=== PATIENT | female | born 1960 | race Caucasian/White ===

== ENCOUNTER → 2016-10-01 | Outpatient (CLI) | payer MEDICARE, OTHER ==
[~2016-10-01] MED LIST: BRIN20TA PO; CIPRO500 MG PO; CIPROFLOXACIN500 M4 PO; DAILY VITAMIN1 EAC2 PO; FLUTICASON0.05 MG/AC NAS; GABAPENTIN300 MG PO; HYDROCODONE BIT1 T11 PO; LISINOPRIL10 MG PO; MACROBID100 M1 PO; MONTELUKAST SOD10 MG PO; NAPROSYN500 MG PO; NATURE'S BLEND F1 MG PO; NEURONTIN600 MG PO; NORTRIPTYLINE H10 M1 PO; PERCOCET 325 MG1 TA5 PO; PRILOSEC20 M1 PO; PYRIDIUM200 M1 PO; PYRIDIUM200 MG PO; RANITIDINE150 MG PO; RITE AID MELATON5 MG PO; VITAMIN D1000 IU PO; ZOFRAN4 MG PO
== END | disposition home or self-care (01) ==
LOC: RAD 14:40
DX: M46.06 Spinal enthesopathy, lumbar region (principal); G95.89 Other specified diseases of spinal cord

== ENCOUNTER → 2016-10-24 | Outpatient (CLI) | payer MEDICARE, OTHER | END | disposition home or self-care (01) | LOC: LAB 09:29 | DX: M47.897 Other spondylosis, lumbosacral region (principal); M48.07 Spinal stenosis, lumbosacral region; R53.83 Other fatigue; Z87.81 Personal history of (healed) traumatic fracture ==

== ENCOUNTER 2017-04-06 18:05 | Emergency (ER) | payer OTHER ==
[~2017-04-06] VITALS: Wt 125.6 kg
[2017-04-06 19:34] LABS: BILIRUBIN 1+ (NEGATIVE); BLOOD 3+ (NEGATIVE); CLARITY TURBID (CLEAR); COLOR RED (YELLOW); GLUCOSE NEGATIVE (NEGATIVE); KETONE TRACE (NEGATIVE); NITRITE POSITIVE (NEGATIVE); PH 6.5 (5.0-9.0); SPECIFIC GRAVITY 1.025 (1.005-1.030)
[2017-04-06 19:43] LABS: LEUKO ESTERASE 1+ (NEGATIVE)
[2017-04-06 19:44] LABS: RBC TNTC rbc/hpf (0-2)
[2017-04-06 19:48] LABS: BASO # 0.1 10*3/uL (0.0-0.1); BASO % 0.5 % (0.0-1.0); EOS # 0.2 10*3/uL (0.0-0.4); EOS % 2.3 % (1.0-4.0); HEMATOCRIT 43.2 % (37.0-47.0); LYMPH # 2.7 10*3/uL (1.3-4.4); MEAN CELL VOLUME 88.5 fl (81.0-99.0); MEAN CORPUSCULAR HGB 28.7 pg (27.0-31.0); MEAN CORPUSCULAR HGB CONC 32.4 g/dl (33.0-37.0); MEAN PLATELET VOLUME 10.1 fl (9.6-12.3); MONO # 0.7 10*3/uL (0.1-1.0); MONO % 6.5 % (3.0-9.0); NEUT # 6.8 10*3/uL (2.3-7.9); NEUT % 64.3 % (47.0-73.0); PLATELET COUNT AUTOMATED 271 10*3/uL (130-400); RED BLOOD COUNT 4.88 10*6/uL (4.10-5.10); RED CELL DISTRI WIDTH 14.4 % (0-14.5); WHITE BLOOD COUNT 10.5 10*3/uL (4.8-10.8)
[2017-04-06 20:04] LABS: ALBUMIN 3.5 gm/dl (3.1-4.5); ALKALINE PHOSPHATASE 134 U/L (45-117); BUN 14 mg/dl (7-24); CHLORIDE 102 mmol/L (98-107); CREATININE 1.06 mg/dL (0.55-1.02); POTASSIUM 3.8 mmol/L (3.5-5.1); SGOT/AST 19 IU/L (3-35); SGPT/ALT 19 U/L (12-78); SODIUM 141 mmol/L (136-145); TOTAL PROTEIN 8.1 gm/dL (6.4-8.2)
[2017-04-06] MEDS ORDERED: CIPRO500 MG PO (22:41)
== END 2017-04-06 22:44 | disposition home or self-care (01) ==
LOC: ED 18:05
PROVIDERS: Emergency Medicine Emergency Medical Services; Hospitalist
DX: N39.0 Urinary tract infection, site not specified (principal); R31.9 Hematuria, unspecified; Z98.890 Other specified postprocedural states; Z87.442 Personal history of urinary calculi; Z79.899 Other long term (current) drug therapy; Z88.0 Allergy status to penicillin; Z88.2 Allergy status to sulfonamides; Z91.040 Latex allergy status; Z88.5 Allergy status to narcotic agent

== ENCOUNTER → 2017-08-19 | Outpatient (CLI) | payer OTHER, MEDICAID | END | disposition home or self-care (01) | LOC: CARD 10:00 | DX: R00.0 Tachycardia, unspecified (principal) ==

== ENCOUNTER 2017-11-06 14:36 | Inpatient (IN) | payer OTHER, MEDICAID ==
[~2017-11-06] VITALS: Ht 165.1 cm; Wt 124.8 kg
--- NOTE | ~2017-11-06 | EKG ---
[place], [place] ELECTROCARDIOGRAM REPORT NAME: MORIAH CORBETT UNIT #: [id number] ROOM: 403 DOCTOR: KIRA KESSLER MD BIRTHDATE: [birth year] DOS: 11/06/2017 EKG REPORT TIME: 15:41:54 RATE AND RHYTHM: Sinus tachycardia at 114 beats per minute, also there is a sinus pause noted. HI interval 142 milliseconds, QRS duration 114 milliseconds. Corrected QT interval 478 milliseconds, QRS axis -15. IMPRESSION: 1. Sinus tachycardia with atrial pause. 2. Left axis deviation. 3. Incomplete left bundle branch block. Clinical correlation needed. KIRA KESSLER MD CM:EKGRPT:ELECTROCARDIOGRAM REPORT [id number] KIRA KESSLER MD
--- NOTE | ~2017-11-06 | CON ---
[place], [place] REPORT OF CONSULTATION NAME: MORIAH CORBETT [facility] #: [id number] UNIT #: [id number] ROOM: 403 DOCTOR: MARKOS PRAJAPATI MD BIRTHDATE: [birth year] DOS: 11/09/2017 GASTROENDOSCOPIC CONSULTATION HISTORY OF PRESENT ILLNESS: This is a 57-year-old patient, who presented with multiple medical problems, among which has been her diarrhea. I have been asked for assessment of the diarrhea. The patient initially presented with abdominal cramp progressively worsening to the point where she had to be admitted. She has had history of previous UTIs. PAST MEDICAL HISTORY: Associated obesity, hypertension, gout, asthma, chronic back pain, and depression. PAST SURGICAL HISTORY: , laminectomies, gastric bypass, and renal lithiasis. FAMILY HISTORY: Diabetes. SOCIAL HISTORY: Nonsmoker, nonalcohol consumer. MEDICATIONS: List was reviewed. ALLERGIES: PENICILLIN, SULFA, OXYCODONE, AND LATEX. REVIEW OF SYSTEMS: HEENT: Denies double vision, blurred vision. RESPIRATORY: Denies shortness of breath. CARDIOVASCULAR: Denies acute chest pain. DIGESTIVE SYSTEM: Diarrhea, cramp, and abdominal pain. No blood in the stool, however. PHYSICAL EXAMINATION: VITAL SIGNS: Stable, obese patient. HEENT: Head normocephalic, nontraumatic. Mouth and buccal mucosa benign. NECK: Supple, no thyromegaly, no cervical lymphadenopathy. CHEST: Symmetric anatomy, equal expansion. No wheeze, no rhonchi. HEART: Normal sinus rhythm, no gallop, no murmur. ABDOMEN: Obese, large, soft. No hepato-organomegaly. Bowel sounds present. EXTREMITIES: No cyanosis, no pedal edema. NEUROLOGIC: Alert and oriented to time, place, and person. IMPRESSION: Diarrhea. , etiology is unknown. The patient has had stool cultures to organize ova and parasite. A Clostridium difficile study has been already done and is negative. PLAN AND DISCUSSION: I am going to have ova and parasite results tomorrow and if it comes back negative, then we are going to organize a colonoscopy for her on Thursday, so she is going to be staying on clear liquid tomorrow with colonic prep for Thursday colonoscopy. [place], [place] REPORT OF CONSULTATION NAME: MORIAH CORBETT UNIT #: [id number] ROOM: 403 DOCTOR: ALO ANDERSEN,MARKOS BIRTHDATE: [birth year] OTHER ADJUNCTIVE DIAGNOSES: As outlined in past medical and surgical history. Workup in progress. Thank you very much indeed. MARKOS PRAJAPATI MD CM:CONSTR:REPORT OF CONSULTATION 1522 11/10/17 0040 interface
--- NOTE | ~2017-11-06 | PR ---
[place], [place] PROGRESS NOTE [id number] UN[facility] #: [id number] ROOM: 403 DOCTOR: SILVER GARCIA MD BIRTHDATE: [birth year] DOS: SUBJECTIVE: The patient, who has been admitted to the hospital with acute enteritis with diarrhea with pain in the abdomen and also having massive obesity and she is still having diarrhea with some pain in the belly, but it is getting somewhat better. There is no nausea, no vomiting. She is having about 4-5 bowel movements daily, which is watery. I put her on Imodium A-D 2 tablets q.6 hours p.r.n. and her blood culture and sensitivity did not grow any bacteria. Her C. diff is negative. OBJECTIVE: VITAL SIGNS: Her blood pressure is 103/72, pulse 113, respirations 20, temperature 98. CHEST: Clear. HEART: Regular. ABDOMEN: Soft. SILVER GARCIA MD CM:PNTRANS [id number] SILVER GARCIA MD 11/09/17 0247 interface
--- NOTE | ~2017-11-06 | WRIGHTHP ---
[place], [place] PATIENT HISTORY AND PHYSICAL EXAM NAME: MORIAH CORBETT [facility] #: [id number] UNIT #: [id number] ROOM: 403 DOCTOR: SILVER GARCIA MD BIRTHDATE: [birth year] DOS: 11/06/2017 HISTORY OF PRESENT ILLNESS: The patient has been admitted to possibility with diarrhea, which she is having for the last 5 days, progressively getting worse. It is like water. There is no blood in it and the patient was last time admitted to the hospital in 04/2017 when she was having urinary tract infection with nephrolithiasis. PAST MEDICAL HISTORY: Asthma, gout, hypertension, chronic back pain, depression. PAST SURGICAL HISTORY: She had a laminectomy done at L4-L5. Gastric bypass surgery done in the past, stomach stapling in 1989, 2 times, tubal ligation. Removal of renal stone and the patient has history of massive obesity. FAMILY HISTORY: There is strong history of diabetes and heart disease in the family. SOCIAL HISTORY: The patient does not drink, does not smoke, does not use any illicit drugs. HOME MEDICATIONS: The patient is taking following medications: Vitamin D 2000 units daily, gabapentin 600 mg three times daily, lisinopril 10 mg 3 times daily, multivitamin 1 tablet daily, Zantac 150 mg twice daily. ALLERGIES: She is allergic to SULFA, PENICILLIN, OXYCODONE and LATEX. PHYSICAL EXAMINATION: GENERAL: The patient is conscious, alert and oriented. VITAL SIGNS: Her blood pressure 109/69, pulse 112, respiration rate 17, temperature 98.3. She is 5 feet 6 inches tall. She is weighing 275 pounds, body mass of 45.7. HEENT: Unremarkable. No glandular enlargement. Trachea central. NECK: Veins are not distended. HEART: Regular. No murmur, thrill. LUNGS: Clear. No crepitations or rhonchi. BREASTS: No mass palpable in the breast. ABDOMEN: Not distended. Liver and spleen not palpable. EXTREMITIES: No area of tenderness. No mass effect. No definite tenderness observed. LABORATORY DATA: Her CBC is essentially normal. Lactic acid 1.9, which is normal. Protime is 10.6, which is normal. Comprehensive metabolic profile showed glucose 97, BUN 11, creatinine 1.17, GFR is 48 indicative of renal failure. Potassium 3.3, chloride is 112, calcium 8.3, alkaline phosphatase of 143. Sed rate is 28. DIAGNOSES: Diarrhea with feeling of marked weakness and with a history of recurring stones, urinary tract infection, nephrolithiasis, chronic kidney [place], [place] PATIENT HISTORY AND PHYSICAL EXAM NAME[facility] [id number] UNIT #: [id number] ROOM: 403 DOCTOR: SILVER GARCIA MD BIRTHDATE: [birth year] disease, gastroesophageal reflux disease syndrome status post gastric bypass, hypertension, asthma, chronic back pain, depression and massive obesity. PLAN: The patient is being treated right now with omeprazole, Cipro and Flagyl and she is taking her home medication as she was taking before and the patient is showing some improvement. SILVER GARCIA MD CM:HISPHYS:PATIENT HISTORY AND PHYSICAL EXAMINATION [id number] SILVER GARCIA MD 11/19/17 0843 interface
--- NOTE | ~2017-11-06 | O ---
[place], [place] OPERATIVE NOTE NAME: MORIAH CORBETT UNIT #: [id number] ROOM: 403 DOCTOR: MARKOS PRAJAPATI MD BIRTHDATE: [birth year] DOS: 11/11/2017 INDICATIONS: A 57-year-old patient who has presented with chief complaint of abdominal pain, diarrhea, undergoing investigation. She has had stool cultures done. The stool cultures have been negative for Campylobacter, E. coli, Salmonella, Shigella vibrio, and Yersenia. C. diff as well. No giardia and no cryptosporidium has been noticed. She is undergoing; therefore, a colonoscopy for definitive evaluation. PROCEDURE: Today's procedure part of investigation is colonoscopy plus biopsy. PREMEDICATION: Propofol. SCOPE: Olympus forward-viewing colonoscope 10L video. REPORT: After putting the patient in the left lateral position and after application of lubricant to the scope, the scope was introduced. Thereafter, under direct visualization, advanced through the length of colon without difficulty. Evidence of diverticulosis was particularly in the left side of the colon appreciated. This is [id number] and extreme tortuosity and redundancy of the colon was experienced. Finally, cecum was explored. Appendiceal orifice identified, ileocecal valve was photographed. Scope was gradually withdrawn from ascending, transverse, descending colon through a very tortuous colon. Multiple biopsies obtained for ruling out collagenous colitis, microscopic colitis. The patient was extubated, tolerated the procedure well. IMPRESSION: Redundant and tortuous colon, diverticulosis of colon. PLAN AND DISCUSSION: We are going to await biopsy results. She can be fed 1800 ADA diet and clinical reassessment. This bearing in mind that this patient has history of diabetes mellitus and morbid obesity, particularly abdominal girth and she needs to remain on low fat diet and observe 15-1800 ADA calorie so that she can be on the safe side. Thank you very much indeed for your kind referral. [place], [place] OPERATIVE NOTE NAME: MORIAH CORBETT UNIT #: [id number] ROOM: 403 DOCTOR: MARKOS PRAJAPATI MD BIRTHDATE: [birth year] MARKOS PRAJAPATI MD CM:OPRECORD:OPERATIVE NOTE [id number] MARKOS PRAJAPATI MD 11/11/17 1650 interface
[2017-11-06 15:00] VITALS: BP 106/76
[2017-11-06] MEDS ORDERED: ATENOLOL25 MG PO (15:09)
[2017-11-06] MEDS ORDERED: VITAMIN C500 M8 PO (15:11)
[2017-11-06] MEDS ORDERED: NATURE'S BLEND F1 MG PO (15:11)
[2017-11-06] MEDS ORDERED: FISH OIL 1,0001 EAC4 PO (15:11)
[2017-11-06 16:03] LABS: BASO % 0.4 % (0.0-1.0); EOS # 0.2 10*3/uL (0.0-0.4); EOS % 1.9 % (1.0-4.0); HEMATOCRIT 42.9 % (37.0-47.0); HEMOGLOBIN 13.8 g/dl (12.0-16.0); LYMPH % 23.5 % (27.0-41.0); MEAN CELL VOLUME 90.1 fl (81.0-99.0); MEAN CORPUSCULAR HGB CONC 32.2 g/dl (33.0-37.0); MEAN PLATELET VOLUME 10.5 fl (9.6-12.3); MONO # 0.7 10*3/uL (0.1-1.0); MONO % 8.1 % (3.0-9.0); NEUT # 5.6 10*3/uL (2.3-7.9); NEUT % 65.9 % (47.0-73.0); PLATELET COUNT AUTOMATED 223 10*3/uL (130-400); RED BLOOD COUNT 4.76 10*6/uL (4.10-5.10); RED CELL DISTRI WIDTH 14.1 % (0-14.5); WHITE BLOOD COUNT 8.4 10*3/uL (4.8-10.8)
[2017-11-06 16:14] LABS: ACT PARTIAL THROMBO TIME 23.8 SECONDS (20.8-31.5)
[2017-11-06 16:18] LABS: ALBUMIN 3.2 gm/dl (3.1-4.5); ALKALINE PHOSPHATASE 143 U/L (45-117); BUN 11 mg/dl (7-24); CHLORIDE 112 mmol/L (98-107); CREATININE 1.17 mg/dL (0.55-1.02); LIPASE 78 U/L (73-393); POTASSIUM 3.3 mmol/L (3.5-5.1); SGOT/AST 29 IU/L (3-35); SGPT/ALT 21 U/L (12-78); SODIUM 144 mmol/L (136-145); TOTAL PROTEIN 7.3 gm/dL (6.4-8.2)
[2017-11-06 16:27] LABS: TROPONIN I < 0.015 ng/ml (<0.045)
[2017-11-06 16:57] VITALS: BP 136/76
[2017-11-06 17:36] VITALS: BP 99/69
[2017-11-06 20:00] VITALS: BP 100/60; BP 98/59
[2017-11-07] VITALS: BP 109/69
[2017-11-07] MEDS ORDERED: GABAPENTIN800 MG PO (01:16)
[2017-11-07] MEDS ORDERED: VITAMIN D-32000 UNI1 PO (01:17)
[2017-11-07] MEDS ORDERED: TRINTELLIX20 MG PO (01:18)
[2017-11-07] MEDS ORDERED: OMEPRAZOLE D/R20 MG PO (01:18)
[2017-11-07] MEDS ORDERED: FUROSEMIDE40 MG PO (01:20)
[2017-11-07] MEDS ORDERED: FERROUS GLUCON324 M2 PO (05:31)
[2017-11-07 07:26] LABS: BUN 9 mg/dl (7-24); CHLORIDE 113 mmol/L (98-107); CREATININE 0.97 mg/dL (0.55-1.02); POTASSIUM 3.7 mmol/L (3.5-5.1); SODIUM 144 mmol/L (136-145)
[2017-11-07 08:00] VITALS: BP 104/60
[2017-11-07 12:00] VITALS: BP 106/65
[2017-11-07 16:00] VITALS: BP 95/62
[2017-11-07 20:00] VITALS: BP 113/65
[2017-11-08] VITALS: BP 106/70
[2017-11-08 08:00] VITALS: BP 103/72
[2017-11-08 12:00] VITALS: BP 104/54
[2017-11-08 20:00] VITALS: BP 133/78
[2017-11-09 01:19] VITALS: BP 119/49
[2017-11-09 06:31] LABS: BASO % 0.3 % (0.0-1.0); EOS # 0.2 10*3/uL (0.0-0.4); EOS % 2.7 % (1.0-4.0); HEMOGLOBIN 11.5 g/dl (12.0-16.0); LYMPH # 1.8 10*3/uL (1.3-4.4); LYMPH % 28.1 % (27.0-41.0); MEAN CELL VOLUME 92.5 fl (81.0-99.0); MEAN CORPUSCULAR HGB 29.6 pg (27.0-31.0); MEAN CORPUSCULAR HGB CONC 31.9 g/dl (33.0-37.0); MEAN PLATELET VOLUME 11.1 fl (9.6-12.3); MONO # 0.5 10*3/uL (0.1-1.0); MONO % 7.5 % (3.0-9.0); NEUT # 3.9 10*3/uL (2.3-7.9); NEUT % 60.9 % (47.0-73.0); PLATELET COUNT AUTOMATED 180 10*3/uL (130-400); RED BLOOD COUNT 3.89 10*6/uL (4.10-5.10); RED CELL DISTRI WIDTH 14.6 % (0-14.5); WHITE BLOOD COUNT 6.4 10*3/uL (4.8-10.8)
[2017-11-09 08:00] VITALS: BP 100/70
[2017-11-09 12:00] VITALS: BP 118/86
[2017-11-09 12:29] LABS: ALBUMIN 2.9 gm/dl (3.1-4.5); ALKALINE PHOSPHATASE 110 U/L (45-117); BUN 5 mg/dl (7-24); CHLORIDE 119 mmol/L (98-107); PHOSPHOROUS 2.1 mg/dL (2.5-4.9); POTASSIUM 3.9 mmol/L (3.5-5.1); SGOT/AST 30 IU/L (3-35); SGPT/ALT 21 U/L (12-78); SODIUM 149 mmol/L (136-145); TOTAL PROTEIN 6.5 gm/dL (6.4-8.2)
[2017-11-09 16:00] VITALS: BP 96/60
[2017-11-09 20:00] VITALS: BP 100/62
[2017-11-10] VITALS: BP 105/56
[2017-11-10 06:00] LABS: BASO % 0.5 % (0.0-1.0); EOS # 0.2 10*3/uL (0.0-0.4); EOS % 2.7 % (1.0-4.0); HEMATOCRIT 34.9 % (37.0-47.0); LYMPH # 1.6 10*3/uL (1.3-4.4); LYMPH % 24.9 % (27.0-41.0); MEAN CELL VOLUME 91.8 fl (81.0-99.0); MEAN CORPUSCULAR HGB 28.9 pg (27.0-31.0); MEAN CORPUSCULAR HGB CONC 31.5 g/dl (33.0-37.0); MEAN PLATELET VOLUME 10.6 fl (9.6-12.3); MONO # 0.5 10*3/uL (0.1-1.0); MONO % 8.3 % (3.0-9.0); NEUT % 63.1 % (47.0-73.0); PLATELET COUNT AUTOMATED 162 10*3/uL (130-400); RED CELL DISTRI WIDTH 14.6 % (0-14.5); WHITE BLOOD COUNT 6.4 10*3/uL (4.8-10.8)
[2017-11-10 06:21] LABS: BUN 5 mg/dl (7-24); CHLORIDE 116 mmol/L (98-107); CREATININE 0.92 mg/dL (0.55-1.02); POTASSIUM 3.7 mmol/L (3.5-5.1); SODIUM 144 mmol/L (136-145)
[2017-11-10 08:00] VITALS: BP 106/78
[2017-11-10 12:30] VITALS: BP 110/70
[2017-11-10 16:00] VITALS: BP 111/61
[2017-11-10 20:00] VITALS: BP 107/54
[2017-11-11] VITALS (9 sets, daily range): BP systolic 94–136; BP diastolic 54–95
[2017-11-11 06:56] LABS: BASO % 0.4 % (0.0-1.0); EOS # 0.3 10*3/uL (0.0-0.4); EOS % 3.2 % (1.0-4.0); LYMPH # 1.7 10*3/uL (1.3-4.4); MEAN CELL VOLUME 91.7 fl (81.0-99.0); MEAN CORPUSCULAR HGB CONC 31.6 g/dl (33.0-37.0); MEAN PLATELET VOLUME 11.1 fl (9.6-12.3); MONO # 0.5 10*3/uL (0.1-1.0); MONO % 6.1 % (3.0-9.0); NEUT # 5.4 10*3/uL (2.3-7.9); NEUT % 67.8 % (47.0-73.0); PLATELET COUNT AUTOMATED 204 10*3/uL (130-400); RED BLOOD COUNT 4.48 10*6/uL (4.10-5.10); RED CELL DISTRI WIDTH 14.8 % (0-14.5); WHITE BLOOD COUNT 7.9 10*3/uL (4.8-10.8)
[2017-11-11 06:57] LABS: HEMATOCRIT 41.1 % (37.0-47.0)
[2017-11-11 07:13] LABS: BUN 4 mg/dl (7-24); CHLORIDE 114 mmol/L (98-107); POTASSIUM 3.5 mmol/L (3.5-5.1); SODIUM 145 mmol/L (136-145)
[2017-11-12] VITALS: BP 109/62
[2017-11-12 06:59] LABS: BUN 4 mg/dl (7-24); CHLORIDE 114 mmol/L (98-107); CREATININE 0.87 mg/dL (0.55-1.02); POTASSIUM 3.6 mmol/L (3.5-5.1); SODIUM 143 mmol/L (136-145)
[2017-11-12 07:02] LABS: BASO % 0.3 % (0.0-1.0); EOS # 0.2 10*3/uL (0.0-0.4); EOS % 3.1 % (1.0-4.0); HEMOGLOBIN 11.1 g/dl (12.0-16.0); LYMPH # 1.7 10*3/uL (1.3-4.4); LYMPH % 22.6 % (27.0-41.0); MEAN CELL VOLUME 91.3 fl (81.0-99.0); MEAN CORPUSCULAR HGB 29.2 pg (27.0-31.0); MONO # 0.6 10*3/uL (0.1-1.0); MONO % 7.3 % (3.0-9.0); NEUT % 66.3 % (47.0-73.0); PLATELET COUNT AUTOMATED 183 10*3/uL (130-400); RED CELL DISTRI WIDTH 14.6 % (0-14.5); WHITE BLOOD COUNT 7.5 10*3/uL (4.8-10.8)
[2017-11-12 07:06] LABS: HEMATOCRIT 34.7 % (37.0-47.0)
[2017-11-12 08:00] VITALS: BP 106/57
[2017-11-12] MEDS ORDERED: NORTRIPTYLINE25 MG PO (11:43)
== END 2017-11-12 12:09 | disposition home or self-care (01) | DRG 392 ==
LOC: ED 14:36 → 4E 16:46 → EDHOLD 16:46 → 4E 17:06
PROVIDERS: Emergency Medicine; Internal Medicine; Internal Medicine Nephrology
PROC: 0DBE8ZX Excision of Large Intestine, Via Natural or Artificial Opening Endoscopic, Diagnostic (ICD-10-PCS; principal; 2017-11-11)
DX: K52.9 Noninfective gastroenteritis and colitis, unspecified (principal); E44.0 Moderate protein-calorie malnutrition; E87.0 Hyperosmolality and hypernatremia; E87.8 Other disorders of electrolyte and fluid balance, not elsewhere classified; E83.39 Other disorders of phosphorus metabolism; E66.01 Morbid (severe) obesity due to excess calories; Z68.42 Body mass index [BMI] 45.0-49.9, adult; J45.909 Unspecified asthma, uncomplicated; M10.9 Gout, unspecified; F32.9 Major depressive disorder, single episode, unspecified; G89.29 Other chronic pain; M54.9 Dorsalgia, unspecified; K57.30 Diverticulosis of large intestine without perforation or abscess without bleeding; K63.89 Other specified diseases of intestine; K21.9 Gastro-esophageal reflux disease without esophagitis; R00.0 Tachycardia, unspecified; D72.810 Lymphocytopenia; D64.9 Anemia, unspecified; E87.6 Hypokalemia; R73.9 Hyperglycemia, unspecified; I12.9 Hypertensive chronic kidney disease with stage 1 through stage 4 chronic kidney disease, or unspecified chronic kidney disease; Z87.440 Personal history of urinary (tract) infections; Z98.891 History of uterine scar from previous surgery; Z98.51 Tubal ligation status; Z87.442 Personal history of urinary calculi; Z98.84 Bariatric surgery status; Z83.3 Family history of diabetes mellitus; Z82.49 Family history of ischemic heart disease and other diseases of the circulatory system; Z88.2 Allergy status to sulfonamides; Z88.0 Allergy status to penicillin; Z91.040 Latex allergy status; Z88.8 Allergy status to other drugs, medicaments and biological substances; Z79.899 Other long term (current) drug therapy

== ENCOUNTER 2018-03-31 17:40 | Emergency (ER) | payer OTHER, MEDICAID ==
[~2018-03-31] VITALS: Wt 130.2 kg
[~2018-03-31 17:40] MED LIST changes: +ATENOLOL25 MG PO; +FERROUS GLUCON324 M2 PO; +FISH OIL 1,0001 EAC4 PO; +FUROSEMIDE40 MG PO; +GABAPENTIN800 MG PO; +NORTRIPTYLINE25 MG PO; +OMEPRAZOLE D/R20 MG PO; +TRINTELLIX20 MG PO; +VITAMIN C500 M8 PO; +VITAMIN D-32000 UNI1 PO
[2018-03-31 18:18] LABS: BILIRUBIN NEGATIVE (NEGATIVE); BLOOD 2+ (NEGATIVE); CLARITY CLEAR (CLEAR); COLOR YELLOW (YELLOW); GLUCOSE NEGATIVE (NEGATIVE); KETONE NEGATIVE (NEGATIVE); LEUKO ESTERASE NEGATIVE (NEGATIVE); NITRITE NEGATIVE (NEGATIVE); PH 5.5 (5.0-9.0); UROBILINOGEN 0.2 E.U./dl (0.2-1.0)
[2018-03-31 18:24] LABS: BACTERIA 1+
[2018-03-31 18:25] LABS: RBC 51-100 rbc/hpf (0-2); WBC 0-2 wbc/hpf (0-5)
[2018-03-31 19:56] LABS: BASO % 0.4 % (0.0-1.0); EOS # 0.2 10*3/uL (0.0-0.4); EOS % 1.9 % (1.0-4.0); HEMATOCRIT 41.4 % (37.0-47.0); HEMOGLOBIN 13.4 g/dl (12.0-16.0); LYMPH # 1.8 10*3/uL (1.3-4.4); LYMPH % 15.9 % (27.0-41.0); MEAN CORPUSCULAR HGB 30.7 pg (27.0-31.0); MEAN CORPUSCULAR HGB CONC 32.4 g/dl (33.0-37.0); MEAN PLATELET VOLUME 10.7 fl (9.6-12.3); MONO # 0.8 10*3/uL (0.1-1.0); MONO % 7.1 % (3.0-9.0); NEUT # 8.4 10*3/uL (2.3-7.9); NEUT % 74.3 % (47.0-73.0); PLATELET COUNT AUTOMATED 226 10*3/uL (130-400); RED BLOOD COUNT 4.36 10*6/uL (4.10-5.10); RED CELL DISTRI WIDTH 13.6 % (0-14.5); WHITE BLOOD COUNT 11.2 10*3/uL (4.8-10.8)
[2018-03-31 20:11] LABS: ALBUMIN 3.1 gm/dl (3.1-4.5); CREATININE 1.31 mg/dL (0.55-1.02); POTASSIUM 4.2 mmol/L (3.5-5.1); TOTAL PROTEIN 6.9 gm/dL (6.4-8.2)
[2018-03-31] MEDS ORDERED: NORCO 5-325 TA1 EACH PO (20:36)
[2018-03-31] MEDS ORDERED: FLOMAX0.4 MG PO (20:36)
== END 2018-03-31 20:43 | disposition home or self-care (01) ==
LOC: ED 17:40
PROVIDERS: Internal Medicine; Physician Assistant
DX: N20.1 Calculus of ureter (principal); R11.2 Nausea with vomiting, unspecified; Z87.442 Personal history of urinary calculi; Z88.0 Allergy status to penicillin; Z88.2 Allergy status to sulfonamides; Z91.040 Latex allergy status; Z88.8 Allergy status to other drugs, medicaments and biological substances; Z88.6 Allergy status to analgesic agent; Z79.899 Other long term (current) drug therapy

== ENCOUNTER → 2018-05-26 | Outpatient (CLI) | payer OTHER, MEDICAID ==
[~2018-05-26] MED LIST changes: +FLOMAX0.4 MG PO; +NORCO 5-325 TA1 EACH PO
[2018-06-01 18:05] LABS: BUSHITE 1.55 ratio (0.00-3.00); CALCIUM OXALATE 8.77 ratio (0.00-6.00); CALCIUM, URINE 10.7 mg/dL (Not Estab.); CITRIC ACID (CITRATE) 61 mg/24 hr (320-1240); CREATININE, URINE 87.6 mg/dL (Not Estab.); MAGNESIUM, URINE 3.6 mg/dL (Not Estab.); MONOSODIUM URATE 4.33 ratio (0.00-4.00); OSMOLALITY, URINE 535 (300-900); SODIUM, URINE 143 (39-258); SODIUM, URINE 143 mmol/L (Not Estab.); STRUVITE 0.01 ratio (0.00-1.00); URIC ACID 0.95 ratio (0.00-1.20); pH 24 HR URINE 6.1 (.)
== END | disposition home or self-care (01) ==
LOC: LAB 09:56
PROVIDERS: Internal Medicine Nephrology
DX: N18.9 Chronic kidney disease, unspecified (principal); N20.0 Calculus of kidney

== ENCOUNTER → 2018-07-29 | Outpatient (CLI) | payer OTHER, MEDICAID ==
[~2018-07-29] MED LIST changes: +DOXYCYCLINE100 M3 PO; +FLONASE ALLERG9.9 ML NAS; +MEDROL DOSEPAK4 MG PO; +OXYBUTYNIN10 MG PO; +POTASSIUM CITR10 MEQ PO; +TENORMIN25 MG PO
== END | disposition home or self-care (01) ==
LOC: RAD 15:49
DX: M51.36 Other intervertebral disc degeneration, lumbar region (principal); M54.42 Lumbago with sciatica, left side; M79.605 Pain in left leg

== ENCOUNTER 2018-08-04 12:56 | Emergency (ER) | payer OTHER, MEDICAID ==
[~2018-08-04] VITALS: Ht 165.1 cm; Wt 132.4 kg
--- NOTE | ~2018-08-04 | EKG ---
[place], [place] ELECTROCARDIOGRAM REPORT [id number] UN[facility] #: [id number] ROOM: DOCTOR: EPIPHANY DRAFT REPORT BIRTHDATE: [birth year] [facility] Test Date: 2018-08-04 Test Time: 15:16:40 Pat Name: MORIAH CORBETT Department: Room: Gender: F Office Copy Selector: Magdalena Anne : 1960 Requested By: CHICA VARGAS Order Number: [id number] Reading MD: Osmel Pruitt MD Measurements Intervals Warner Rate: 67 P: 26 KS: 179 QRS: -1 QRSD: 104 T: 40 QT: 400 QTc: 423 Interpretive Statements Sinus rhythm No previous ECG available for comparison Electronically Signed On 08-05-2018 4:57:36 PDT by Osmel Pruitt MD CM:EKGRPT:ELECTROCARDIOGRAM REPORT [id number] CHICA VARGAS EPIPHANY DRAFT REPORT CHICA VARGAS
[~2018-08-04 12:56] MED LIST changes: -DOXYCYCLINE100 M3 PO; -FLONASE ALLERG9.9 ML NAS; -MEDROL DOSEPAK4 MG PO; -OXYBUTYNIN10 MG PO; -POTASSIUM CITR10 MEQ PO; -TENORMIN25 MG PO
[2018-08-04 15:10] LABS: BASO # 0.1 10*3/uL (0.0-0.1); BASO % 0.4 % (0.0-1.0); EOS # 0.1 10*3/uL (0.0-0.4); HEMATOCRIT 40.7 % (37.0-47.0); HEMOGLOBIN 13.1 g/dl (12.0-16.0); LYMPH # 1.6 10*3/uL (1.3-4.4); LYMPH % 12.4 % (27.0-41.0); MEAN CORPUSCULAR HGB 30.3 pg (27.0-31.0); MEAN CORPUSCULAR HGB CONC 32.2 g/dl (33.0-37.0); MEAN PLATELET VOLUME 9.8 fl (9.6-12.3); MONO # 0.8 10*3/uL (0.1-1.0); NEUT # 10.3 10*3/uL (2.3-7.9); NEUT % 79.5 % (47.0-73.0); PLATELET COUNT AUTOMATED 201 10*3/uL (130-400); RED BLOOD COUNT 4.33 10*6/uL (4.10-5.10); RED CELL DISTRI WIDTH 13.8 % (0-14.5); WHITE BLOOD COUNT 12.9 10*3/uL (4.8-10.8)
[2018-08-04 15:45] LABS: BUN 21 mg/dl (7-24); CHLORIDE 105 mmol/L (98-107); CREATININE 1.03 mg/dL (0.55-1.02); POTASSIUM 4.3 mmol/L (3.5-5.1); SODIUM 141 mmol/L (136-145)
[2018-08-04 15:56] LABS: BILIRUBIN NEGATIVE (NEGATIVE); BLOOD NEGATIVE (NEGATIVE); CLARITY CLEAR (CLEAR); COLOR YELLOW (YELLOW); GLUCOSE NEGATIVE (NEGATIVE); KETONE NEGATIVE (NEGATIVE); LEUKO ESTERASE NEGATIVE (NEGATIVE); NITRITE NEGATIVE (NEGATIVE); SPECIFIC GRAVITY 1.015 (1.005-1.030)
[2018-08-04 16:06] LABS: BACTERIA 1+; MUCOUS 1+; WBC 0-2 wbc/hpf (0-5)
[2018-08-09] MEDS ORDERED: NORCO 5-325 TA1 EACH PO (10:50)
[2018-08-09] MEDS ORDERED: OXYBUTYNIN10 MG PO (10:51)
[2018-08-09] MEDS ORDERED: FLONASE ALLERG9.9 ML NAS (10:52)
[2018-08-09] MEDS ORDERED: POTASSIUM CITR10 MEQ PO (10:52)
[2018-08-13] MEDS ORDERED: TENORMIN25 MG PO (13:00)
[2018-08-13] MEDS ORDERED: MEDROL DOSEPAK4 MG PO (13:01)
[2018-08-13] MEDS ORDERED: DOXYCYCLINE100 M3 PO (13:01)
== END 2018-08-04 17:40 | disposition home or self-care (01) ==
LOC: ED 12:56
PROVIDERS: Nurse Practitioner
DX: D72.829 Elevated white blood cell count, unspecified (principal); R11.0 Nausea; J44.9 Chronic obstructive pulmonary disease, unspecified; Z98.890 Other specified postprocedural states; Z98.84 Bariatric surgery status; Z79.899 Other long term (current) drug therapy; Z87.442 Personal history of urinary calculi; Z88.0 Allergy status to penicillin; Z88.2 Allergy status to sulfonamides; Z91.040 Latex allergy status; Z88.5 Allergy status to narcotic agent

== ENCOUNTER → 2018-08-16 | Outpatient (CLI) | payer OTHER, MEDICAID ==
[~2018-08-16] MED LIST changes: +DOXYCYCLINE100 M3 PO; +FLONASE ALLERG9.9 ML NAS; +MEDROL DOSEPAK4 MG PO; +OXYBUTYNIN10 MG PO; +POTASSIUM CITR10 MEQ PO; +TENORMIN25 MG PO
== END | disposition home or self-care (01) ==
LOC: MRI 09:41
DX: M47.817 Spondylosis without myelopathy or radiculopathy, lumbosacral region (principal)

== ENCOUNTER → 2018-10-05 | Outpatient (CLI) | payer OTHER, MEDICAID | END | disposition home or self-care (01) | LOC: MAMMO 09-30 00:31 | DX: Z12.31 Encounter for screening mammogram for malignant neoplasm of breast (principal) ==

== ENCOUNTER 2018-11-06 16:26 | Emergency (ER) | payer OTHER, MEDICAID ==
[~2018-11-06] VITALS: Ht 167.6 cm; Wt 127.0 kg
== END 2018-11-06 19:20 | disposition home or self-care (01) ==
LOC: ED 16:26
DX: S93.601A Unspecified sprain of right foot, initial encounter (principal); R04.2 Hemoptysis; R06.02 Shortness of breath; J44.9 Chronic obstructive pulmonary disease, unspecified; K21.9 Gastro-esophageal reflux disease without esophagitis; I10 Essential (primary) hypertension; E66.01 Morbid (severe) obesity due to excess calories; Z88.0 Allergy status to penicillin; Z88.2 Allergy status to sulfonamides; Z88.6 Allergy status to analgesic agent; Z79.899 Other long term (current) drug therapy; Z91.040 Latex allergy status; W01.0XXA Fall on same level from slipping, tripping and stumbling without subsequent striking against object, initial encounter; Y93.89 Activity, other specified; Y92.89 Other specified places as the place of occurrence of the external cause; Y99.8 Other external cause status

== ENCOUNTER → 2018-11-11 | Outpatient (CLI) | payer OTHER, MEDICAID | END | disposition home or self-care (01) | LOC: RAD 13:14 | DX: J44.1 Chronic obstructive pulmonary disease with (acute) exacerbation (principal) ==

== ENCOUNTER 2019-03-07 09:38 | Inpatient (IN) | payer OTHER, MEDICAID ==
[~2019-03-07] VITALS: Ht 165.1 cm; Wt 122.5 kg
[2019-03-07 09:45] VITALS: BP 118/64
[2019-03-07 09:55] LABS: BASO # 0.1 10*3/uL (0.0-0.1); BASO % 0.4 % (0.0-1.0); EOS # 0.2 10*3/uL (0.0-0.4); EOS % 1.4 % (1.0-4.0); HEMATOCRIT 40.5 % (37.0-47.0); HEMOGLOBIN 13.1 g/dl (12.0-16.0); LYMPH # 1.4 10*3/uL (1.3-4.4); LYMPH % 11.2 % (27.0-41.0); MEAN CELL VOLUME 93.1 fl (81.0-99.0); MEAN CORPUSCULAR HGB 30.1 pg (27.0-31.0); MEAN CORPUSCULAR HGB CONC 32.3 g/dl (33.0-37.0); MEAN PLATELET VOLUME 11.5 fl (9.6-12.3); MONO # 0.6 10*3/uL (0.1-1.0); MONO % 4.4 % (3.0-9.0); NEUT # 10.6 10*3/uL (2.3-7.9); NEUT % 82.2 % (47.0-73.0); PLATELET COUNT AUTOMATED 173 10*3/uL (130-400); RED BLOOD COUNT 4.35 10*6/uL (4.10-5.10); RED CELL DISTRI WIDTH 13.4 % (0-14.5); WHITE BLOOD COUNT 12.9 10*3/uL (4.8-10.8)
[2019-03-07 10:09] LABS: ACT PARTIAL THROMBO TIME 26.7 SECONDS (20.0-32.1)
[2019-03-07 10:12] LABS: ALBUMIN 3.3 gm/dl (3.1-4.5); ALKALINE PHOSPHATASE 91 U/L (45-117); BUN 13 mg/dl (7-24); CHLORIDE 107 mmol/L (98-107); CREATININE 1.05 mg/dL (0.55-1.02); POTASSIUM 4.4 mmol/L (3.5-5.1); SGOT/AST 17 IU/L (3-35); SGPT/ALT 16 U/L (12-78); SODIUM 140 mmol/L (136-145); TOTAL PROTEIN 6.7 gm/dL (6.4-8.2)
[2019-03-07 10:14] VITALS: BP 108/54
--- NOTE | 2019-03-07 10:22 | NUR ---
PT POSITIONED FOR COMFORT WITH SAFETY PRECAUTIONS INTACT,FAMILY @ BEDSIDE AND CALL LIGHT WITHIN REACH.PT STATING "FEELING BETTER".
[2019-03-07 10:28] LABS: TROPONIN I < 0.015 ng/ml (<0.045)
--- NOTE | 2019-03-07 11:21 | NUR ---
PT W/O MEDICATION LIST.
[2019-03-07 11:25] VITALS: BP 100/60
--- NOTE | 2019-03-07 11:30 | NUR ---
A 58, admitted to , under the services of KIRA Amado MD with a diagnosis of CHEST PAIN. Chief complaint is CHEST PAIN. Patient arrived via stretcher from ER. Monitor applied. Initial assessment completed. Vital signs taken and recorded. KIRA AMADO MD notified of admission to the unit. Orders received. See assessment for past medical history, medications and allergies. Patient and/or family oriented to unit. [facility] visitation policy reviewed. Clothing/patient valuable form completed. PETER PHILLIPS
--- NOTE | 2019-03-07 11:50 | NUR ---
DR. ANA SAHU NOTIFIED OF PATIENT ADMISSION AND NEED FOR ADMISSION ORDERS
[2019-03-07 12:00] VITALS: BP 129/55
--- NOTE | 2019-03-07 12:05 | NUR ---
pt does not know home medication list, called [facility], they will fax an updated list
[2019-03-07] MEDS ORDERED: CITRUS CALCIUM1 EAC1 PO (12:49)
--- NOTE | 2019-03-07 12:55 | NUR ---
HOME MEDICATIONS UPDATED VIA PHARMACY FAX LIST AND PATIENT RECALL
--- NOTE | 2019-03-07 14:25 | NUR ---
DR. SAHU NOTIFIED PT REQUESTING TYLENOL
--- NOTE | 2019-03-07 14:40 | NUR ---
COMPLAIN OF HEADACHE
--- NOTE | 2019-03-07 15:25 | NUR ---
DR. SMITH NOTIFIED OF NEW CONSULT
[2019-03-07 16:00] VITALS: BP 124/56
[2019-03-07 20:00] VITALS: BP 95/55
[2019-03-08] VITALS: BP 114/77
[2019-03-08 06:37] LABS: BASO % 0.5 % (0.0-1.0); EOS # 0.2 10*3/uL (0.0-0.4); EOS % 3.1 % (1.0-4.0); HEMATOCRIT 35.8 % (37.0-47.0); HEMOGLOBIN 11.5 g/dl (12.0-16.0); LYMPH # 1.8 10*3/uL (1.3-4.4); LYMPH % 27.6 % (27.0-41.0); MEAN CELL VOLUME 95.2 fl (81.0-99.0); MEAN CORPUSCULAR HGB 30.6 pg (27.0-31.0); MEAN CORPUSCULAR HGB CONC 32.1 g/dl (33.0-37.0); MEAN PLATELET VOLUME 11.5 fl (9.6-12.3); MONO # 0.4 10*3/uL (0.1-1.0); MONO % 6.8 % (3.0-9.0); NEUT % 61.7 % (47.0-73.0); PLATELET COUNT AUTOMATED 155 10*3/uL (130-400); RED BLOOD COUNT 3.76 10*6/uL (4.10-5.10); RED CELL DISTRI WIDTH 13.5 % (0-14.5); WHITE BLOOD COUNT 6.4 10*3/uL (4.8-10.8)
[2019-03-08 06:55] LABS: ALBUMIN 2.8 gm/dl (3.1-4.5); BUN 13 mg/dl (7-24); CHLORIDE 106 mmol/L (98-107); CREATININE 0.97 mg/dL (0.55-1.02); POTASSIUM 4.1 mmol/L (3.5-5.1); SGOT/AST 11 IU/L (3-35); SGPT/ALT 12 U/L (12-78); SODIUM 140 mmol/L (136-145)
[2019-03-08 07:03] LABS: ALKALINE PHOSPHATASE 79 U/L (45-117); CHOLESTEROL 133 mg/dL (<200); HDL CHOLESTEROL 43 mg/dl (40-60); LDL CHOLESTEROL 67 mg/dL (9-159); PHOSPHOROUS 3.4 mg/dL (2.5-4.9); TOTAL PROTEIN 5.8 gm/dL (6.4-8.2); TRIGLYCERIDES 114 mg/dl (<150); VLDL CHOLESTEROL 23 mg/dL (6-40)
[2019-03-08 07:44] LABS: VITAMIN D, 25-HYDROXY 35.8 ng/mL (30-100)
[2019-03-08 08:00] VITALS: BP 130/80
--- NOTE | 2019-03-08 08:51 | NUR ---
TYLENOL GIVEN FOR C/O NECK PAIN, RATES 8/10 ON PAIN SCALE. WILL MONITOR.
--- NOTE | 2019-03-08 10:00 | NUR ---
TYLENOL NOT EFFECTIVE PER PT.
--- NOTE | 2019-03-08 10:30 | NUR ---
Procedure Manager in to talk to patient. Patient states lives at home alone with her family checking in on her. There are 13 steps in the home. Physician: Dr. Jerzy Juarez [facility]acy: [facility] Home health services: none Patient's level of ADLs: MINIMAL ASSIST Patient has working utilities: yes DME: walker, cane, RLE brace, LLE air boot, hospital bed, electric chair Follow-up physician's appointment after d/c: he prefers to make her own follow up appt after discharge Does patient want to access PORTAL?: no Discharge plan discussed with patient. She lives at home with her boyfriend and is in the process of moving. She is independent in her ADLs and ambulates with a walker or a cane. Discussed home health care services and she denies any home needs at this time. When medically stable she will be discharged to home. Her boyfriend, Rakan, will provide transportation on discharge. WOLF NOBLES
[2019-03-08 12:00] VITALS: BP 101/53
--- NOTE | 2019-03-08 14:15 | NUR ---
[facility] Discharge instructions reviewed with patient/family. Patient receptive and verbalizes understanding. Follow-up care arranged. Written instructions given to patient/family. COURTNEY HITCHCOCK
== END 2019-03-08 14:15 | disposition home or self-care (01) | DRG 313 ==
LOC: ED 09:38 → 4E 10:58 → EDHOLD 10:58 → 4E 11:22
PROVIDERS: Emergency Medicine; Student in an Organized Health Care Education/Training Program; ADMIT Internal Medicine
DX: R07.89 Other chest pain (principal); J44.1 Chronic obstructive pulmonary disease with (acute) exacerbation; R65.10 Systemic inflammatory response syndrome (SIRS) of non-infectious origin without acute organ dysfunction; R04.2 Hemoptysis; D72.829 Elevated white blood cell count, unspecified; R00.0 Tachycardia, unspecified; R73.9 Hyperglycemia, unspecified; J30.9 Allergic rhinitis, unspecified; K21.9 Gastro-esophageal reflux disease without esophagitis; I10 Essential (primary) hypertension; F32.9 Major depressive disorder, single episode, unspecified; E66.01 Morbid (severe) obesity due to excess calories; K58.9 Irritable bowel syndrome, unspecified; R32 Unspecified urinary incontinence; M54.9 Dorsalgia, unspecified; G89.29 Other chronic pain; Z87.891 Personal history of nicotine dependence; Z88.0 Allergy status to penicillin; Z88.2 Allergy status to sulfonamides; Z88.8 Allergy status to other drugs, medicaments and biological substances; Z91.040 Latex allergy status; Z98.891 History of uterine scar from previous surgery; Z98.51 Tubal ligation status; Z98.84 Bariatric surgery status; Z83.3 Family history of diabetes mellitus; Z82.49 Family history of ischemic heart disease and other diseases of the circulatory system; Z81.1 Family history of alcohol abuse and dependence

== ENCOUNTER 2019-04-26 11:20 | Inpatient (IN) | payer OTHER, MEDICAID ==
[2019-04-26] VITALS: BP 99/41
[~2019-04-26] VITALS: Ht 165.1 cm; Wt 116.3 kg
[~2019-04-26 11:20] MED LIST changes: +CITRUS CALCIUM1 EAC1 PO
[2019-04-26 11:33] VITALS: BP 116/69
[2019-04-26 11:41] LABS: BASO % 0.2 % (0.0-1.0); EOS # 0.1 10*3/uL (0.0-0.4); EOS % 1.3 % (1.0-4.0); HEMATOCRIT 39.2 % (37.0-47.0); HEMOGLOBIN 12.7 g/dl (12.0-16.0); LYMPH # 1.7 10*3/uL (1.3-4.4); LYMPH % 15.7 % (27.0-41.0); MEAN CELL VOLUME 93.1 fl (81.0-99.0); MEAN CORPUSCULAR HGB 30.2 pg (27.0-31.0); MEAN CORPUSCULAR HGB CONC 32.4 g/dl (33.0-37.0); MEAN PLATELET VOLUME 11.1 fl (9.6-12.3); MONO # 0.6 10*3/uL (0.1-1.0); MONO % 5.2 % (3.0-9.0); NEUT # 8.6 10*3/uL (2.3-7.9); NEUT % 77.3 % (47.0-73.0); PLATELET COUNT AUTOMATED 197 10*3/uL (130-400); RED BLOOD COUNT 4.21 10*6/uL (4.10-5.10); RED CELL DISTRI WIDTH 13.2 % (0-14.5); WHITE BLOOD COUNT 11.1 10*3/uL (4.8-10.8)
[2019-04-26 11:59] LABS: ALBUMIN 3.3 gm/dl (3.1-4.5); ALKALINE PHOSPHATASE 102 U/L (45-117); BUN 12 mg/dl (7-24); CHLORIDE 108 mmol/L (98-107); CREATININE 1.02 mg/dL (0.55-1.02); POTASSIUM 3.8 mmol/L (3.5-5.1); SGOT/AST 10 IU/L (3-35); SGPT/ALT 13 U/L (12-78); SODIUM 141 mmol/L (136-145)
[2019-04-26 12:02] LABS: ACT PARTIAL THROMBO TIME 26.6 SECONDS (20.0-32.1); INTERNATIONAL NORM RATIO 0.9 (2.0-3.5)
[2019-04-26 12:05] LABS: TROPONIN I < 0.015 ng/ml (<0.045)
--- NOTE | 2019-04-26 12:06 | NUR ---
ALERT AND ORIENTED. SKIN COOL AND DRY. RESPIRAITONS EVEN AND UNLABORED. REPORTS FEELING SOB WITH THORACIC BACK PAINS STATES INTERMITTENT CP DESCRIBING REPRODUCABLE PAINS AND WORSE WITH DEEP INSPIRATION. REPORTS PRODUCTIVE COUGH THAT IS YELLOW IN COLOR WITH RED STREAKS. STATES THAT SXS STARTED THURSDAY BUT HAD HOLIDAY ACTIVITES TO ATTEND STATING THAT NOW FEELING WORSE. EDEMA NOTED TO THE LOWER EXTREMITES AND PT STATES THAT IS NORMAL. TRACE PITTING NOTED. STATES THAT SHE WAS INITIALLY COMING OUTPATIENT FOR XRAY OF HER NECK. DENYING ANY RECENT TRAUMA. NO DISTRESS NOTED. CALL MARTINEZ IN REACH. BED LOCKED AND LOW.CONTINUING TO MONITOR. NSR ON THE MONITOR.
[2019-04-26 12:57] VITALS: BP 113/68
--- NOTE | 2019-04-26 12:58 | NUR ---
PT IN ROOM WITH FRIEND AT BEDSIDE PT STATES SHE IS WARM ENOUGH PT GIVEN KLEENEX FOR OCCASIONAL PRODUCTIVE COUGH PT WITH NO OTHER REQUESTS NO SIGN OF RESP DISTRESS
--- NOTE | 2019-04-26 13:13 | NUR ---
A 58, admitted to 4E, under the services of KIRA Amado MD with a diagnosis of COPD EXACERBATION. Chief complaint is SHORTNESS OF BREATH. Patient arrived via wheel chair from ER. Monitor applied. Initial assessment completed. Vital signs taken and recorded. KIRA AMADO MD notified of admission to the unit. Orders received. See assessment for past medical history, medications and allergies. Patient and/or family oriented to unit. [facility] visitation policy reviewed. Clothing/patient valuable form completed. MORIAH MORALES
--- NOTE | 2019-04-26 15:07 | NUR ---
gait steady with use of cane to restroom. telephone report given to floor by this rn and pt transported to the floor with hall monitor.
[2019-04-26 15:15] VITALS: BP 141/88
[2019-04-26 16:00] VITALS: BP 99/41
--- NOTE | 2019-04-26 16:30 | NUR ---
CALL PLACED TO DR. KESSLER, TO RECEIVED FOR ADMIT TO TELEMETRY, SOLUMEDROL 60MG BID, DUONEB Q4H, ROCEPHEN 1GM DAILY, ZITHROMAX 500MG DAILY IV, LOVENOX 40MG DAILY AND REGULAR DIET.
--- NOTE | 2019-04-26 17:05 | NUR ---
PATIENT C/O OF H/A 11/10 MEDICATED WITH NORCO ORDERED PRN.
--- NOTE | 2019-04-26 18:05 | NUR ---
GOOD RELIEF FROM NORCO GIVEN X 1 HOUR AGO, REPORTS PAIN 0/0
[2019-04-26 20:00] VITALS: BP 114/58
[2019-04-27] VITALS: BP 110/51
--- NOTE | 2019-04-27 00:15 | NUR ---
PT SLEEPING IN BED, AWAKENS EASILY. RESP-EASY AND REGULAR. NO C/O AT THIS TIME. CALL LIGHT IN REACH. SEE SHIFT ASSESSMENT.
--- NOTE | 2019-04-27 04:00 | NUR ---
PT SLEEPING IN BED. RESP-EASY AND REGULAR. CALL LIGHT IN REACH.
[2019-04-27 08:00] VITALS: BP 102/70
--- NOTE | 2019-04-27 10:48 | NUR ---
Requested and medicated with norco per prn order for complaints of pain to rt ear and throat pain.
[2019-04-27 12:00] VITALS: BP 122/53
[2019-04-27 16:51] VITALS: BP 113/59
--- NOTE | 2019-04-27 19:11 | NUR ---
PATIENT RESTING IN BED WATCHING TV. DENIES NEEDS OR SHORTNESS OF BREATH AT THIS TIME. BED IN LOWEST POSITION, CALL LIGHT IN REACH
[2019-04-27 20:00] VITALS: BP 131/78
--- NOTE | 2019-04-27 20:38 | NUR ---
PATIENT C/O MIDSTERNAL NON RADIATING CHEST PAIN RATED 5/10 ON A 0/10 PAIN SCALE. VITALS WNL. PULSE OX 97% ON ROOM AIR. STAT EKG ORDERED
--- NOTE | 2019-04-27 20:42 | NUR ---
DR WALTER AWARE OF PATIENT C/O CHEST PAIN
--- NOTE | 2019-04-27 21:28 | NUR ---
PATIENT STATES CHEST PAIN HAS SUBSIDED
--- NOTE | 2019-04-27 21:32 | NUR ---
DR WALTER AWARE OF PATIENT'S HEART RATE AND DUE TENORMIN. STATES "I WILL LOOK AT HER CHART"
--- NOTE | 2019-04-27 22:13 | NUR ---
DR KESSLER AWARE OF PATIENT'S HEART RATE AND EKG. STATES TO HOLD TENORMIN AND CONSULT DR SMITH
--- NOTE | 2019-04-27 22:20 | NUR ---
DR KESSLER AWARE OF DR SMITH BEING AWARE UNTIL May. STATES TO CALL DR DUDLEY
--- NOTE | 2019-04-27 22:24 | NUR ---
DR KESSLER MADE AWARE OF NO CARDIOLOGY COVERAGE. STATES TO WAIT UNTIL TOMORROW AND HE WILL TAKE CARE OF IT
--- NOTE | 2019-04-27 22:37 | NUR ---
MEDICATED WITH PRN NORCO FOR C/O PAIN. WILL MONITOR
[2019-04-28] VITALS: BP 99/61
[2019-04-28 00:30] VITALS: BP 100/68
--- NOTE | 2019-04-28 01:51 | NUR ---
24 HR chart check completed.
[2019-04-28 08:00] VITALS: BP 110/70
--- NOTE | 2019-04-28 11:44 | NUR ---
Notified Dr. Juarez of pt tachycardia when up with exertion hr 120-130's. No new orders at this time.
[2019-04-28 12:00] VITALS: BP 117/50
--- NOTE | 2019-04-28 13:02 | NUR ---
Driver License Reviewing Officer in to talk to patient. Patient states lives at HOME with ALONE. There are NO steps in the home. Physician: VICTORIA [facility]acy: [facility] Home health services: NONE Patient's level of ADLs: INDEPENDENT Patient has working utilities: YES DME: [facility] Follow-up physician's appointment after d/c: WILL BE MADE BY HOSPITALIST NURSE DIRECTOR ON DISCHARGE Does patient want to access PORTAL?: NO Discharge plan PT LIVES AT HOME ALONE AND IS INDEPENDENT IN HER CARE. STATES DAUGHTER HELPS HER IF NEEDED. DENIES SHE WILL HAVE NEEDS ON DISCHARGE. PLANS TO RETURN HOME WHEN MEDICALLY STABLE. WILL CONTINUE TO FOLLOW. STATES SHE WILL HAVE A RIDE HOME.. MEHUL MAN
[2019-04-28 16:00] VITALS: BP 122/53
[2019-04-28] MEDS ORDERED: PRILOSEC20 M1 PO (16:27)
[2019-04-28 20:00] VITALS: BP 111/70
[2019-04-29] VITALS: BP 116/53
--- NOTE | 2019-04-29 03:41 | NUR ---
24 HR chart check completed.
--- NOTE | 2019-04-29 04:16 | NUR ---
PATIENT RESTING IN BED WITH NO S/S OF DISTRESS. BED IN LOWEST POSITION, CALL LIGHT IN REACH
[2019-04-29 07:41] LABS: BASO % 0.2 % (0.0-1.0); HEMATOCRIT 39.8 % (37.0-47.0); HEMOGLOBIN 12.6 g/dl (12.0-16.0); LYMPH # 1.3 10*3/uL (1.3-4.4); LYMPH % 7.2 % (27.0-41.0); MEAN CELL VOLUME 94.1 fl (81.0-99.0); MEAN CORPUSCULAR HGB 29.8 pg (27.0-31.0); MEAN CORPUSCULAR HGB CONC 31.7 g/dl (33.0-37.0); MEAN PLATELET VOLUME 11.3 fl (9.6-12.3); MONO # 0.5 10*3/uL (0.1-1.0); MONO % 2.5 % (3.0-9.0); NEUT # 15.9 10*3/uL (2.3-7.9); NEUT % 88.4 % (47.0-73.0); PLATELET COUNT AUTOMATED 251 10*3/uL (130-400); RED BLOOD COUNT 4.23 10*6/uL (4.10-5.10); RED CELL DISTRI WIDTH 13.2 % (0-14.5); WHITE BLOOD COUNT 17.9 10*3/uL (4.8-10.8)
[2019-04-29 07:50] LABS: BUN 30 mg/dl (7-24); CHLORIDE 107 mmol/L (98-107); CREATININE 1.08 mg/dL (0.55-1.02); POTASSIUM 5.1 mmol/L (3.5-5.1); SODIUM 140 mmol/L (136-145)
[2019-04-29 08:00] VITALS: BP 126/68
--- NOTE | 2019-04-29 11:29 | NUR ---
REGIONAL COORDINATOR was notified by Snap Attacher Mira that the patient wanted DPOA-HC papers. REGIONAL COORDINATOR provided the patient with the documents. REGIONAL COORDINATOR explained DPOA-HC. REGIONAL COORDINATOR explained to the patient if she has any further questions to have staff contact this REGIONAL COORDINATOR. -PIEDAD Dean
--- NOTE | 2019-04-29 11:39 | NUR ---
PT PLEASANT AND COOPERATIVE. LUNGS DIM T/O MONGE. EDEMA VS OBESITY TO BLE. PT DENIES ANY PAIN AT THIS TIME. CALL LIGHT IS WITHIN REACH. NO NEEDS VOICED.
[2019-04-29 12:00] VITALS: BP 119/62
--- NOTE | 2019-04-29 12:16 | NUR ---
CONTINUES TO DENY NEEDS AT HOME. CAN BE DISCHARGED HOME WHEN MEDICALLY STABLE.
[2019-04-29 16:00] VITALS: BP 115/51
[2019-04-29 20:00] VITALS: BP 117/63
--- NOTE | 2019-04-29 20:53 | NUR ---
CALLED PHARMACY AND TOLD THEM I NEEDED THE PATIENTS TRINTELLIX PRESCRIPTION THAT IT IS NOT IN THE [facility], HE WILL SEND ONE TO ME
--- NOTE | 2019-04-29 23:10 | NUR ---
REPORT RECEIVED FROM YULIET GRIFFIN. PT SLEEPING AT THIS TIME, NO S/S OF DISTRESS NOTED. CALL LIGHT IN REACH.
[2019-04-30] VITALS: BP 105/58
--- NOTE | 2019-04-30 01:00 | NUR ---
PT SLEEPING, CALL LIGHT IN REACH
[2019-04-30 08:00] VITALS: BP 140/68
--- NOTE | 2019-04-30 08:30 | NUR ---
PT MEDICATED WITH NORCO AT THIS TIME PER ORDER FOR COMPLAINTS OF BACK PAIN 01/11. WILL MONITOR FOR EFFECTIVENESS.
--- NOTE | 2019-04-30 09:45 | NUR ---
PER PATIENT, PAIN MEDICATION HAS BEEN EFFECTIVE. NO FURTHER COMPLAINTS AT THIS TIME.
[2019-04-30 12:00] VITALS: BP 126/61
--- NOTE | 2019-04-30 15:21 | NUR ---
PT REFUSED SATX STATES SHE WANTS TO VISIT WITH COMPANY
[2019-04-30 16:00] VITALS: BP 110/55
[2019-04-30 20:00] VITALS: BP 119/53
--- NOTE | 2019-04-30 20:08 | NUR ---
PATIENT RESTING IN BED WITH NO S/S OF DISTRESS WITH NO NEEDS MADE. BED IN LOWEST POSITION, CALL LIGHT IN REACH
[2019-05-01] VITALS: BP 115/56; BP 127/66
--- NOTE | 2019-05-01 04:13 | NUR ---
PATIENT RESTING IN BED WITH NO S/S OF DISTRESS. BED IN LOWEST POSITION, CALL LIGHT IN REACH
--- NOTE | 2019-05-01 04:51 | NUR ---
24 HR chart check completed.
--- NOTE | 2019-05-01 07:10 | NUR ---
REPORT RECEIVED FROM KENYETTA GRIFFIN. PT AWAKE AT THIS TIME. PT VOICES NO COMPLAINTS, CALL LIGHT IN REACH.
[2019-05-01 08:00] VITALS: BP 133/64
[2019-05-01 12:00] VITALS: BP 135/59
--- NOTE | 2019-05-01 13:34 | NUR ---
NORCO GIVEN PER ORDER FOR COMPLAINT OF 9/10 HEADACHE PAIN. WILL MONITOR EFFECTIVENESS
--- NOTE | 2019-05-01 15:00 | NUR ---
NORCO EFFECTIVE FOR HEADACHE PER PT.
[2019-05-01 16:00] VITALS: BP 131/69
[2019-05-01 20:00] VITALS: BP 122/55
--- NOTE | 2019-05-01 20:15 | NUR ---
PATIENT ASSESSMENT COMPLETED AT THIS TIME WITHOUT INCIDENT. PATIENT DENIES ANY CHEST PAIN OR PRESSURE AT THIS TIME BUT DOES STATE SHE HAD MILD SHORTNESS OF BREATH WITH EXERTION OR AMBULATION, PATIENT STATED THAT SHE IS USING PURSED LIP BREATHING TECHNIQUES WHEN SHORT OF BREATH. PATIENT REQUESTING PAIN MEDICATION AT BEDTIME FOR GENERALIZED PAIN 5/10 AT THIS TIME. CALL LIGHT WITHIN REACH, WILL CONTINUE TO MONITOR.
--- NOTE | 2019-05-01 22:37 | NUR ---
24 HOUR CHART CHECK COMPLETED
--- NOTE | 2019-05-01 23:00 | NUR ---
PATIENT STATED THAT PAIN MEDICATION WAS EFFECTIVE AT THIS TIME RATED HER PAIN A 3/10.
--- NOTE | 2019-05-02 01:23 | NUR ---
PT COMPLAINING OF NAUSEA AT THIS TIME. SPOKE WITH DR KESSLER, TELEPHONE ORDER TAKEN FOR 4MG OF ZOFRAN. DR KESSLER STATES THAT IF ITS INEFFECTIVE TO GIVE 25 MG PHENERGAN.
--- NOTE | 2019-05-02 01:36 | NUR ---
ZOFRAN ADMINISTERED FOR PT C/O NAUSEA.
--- NOTE | 2019-05-02 05:49 | NUR ---
PHENERGAN IV GIVEN AT THIS TIME FOR PATIENT CONINTUED COMPLAINT OF UPSET STOMACH AND NAUSEA.
[2019-05-02 06:19] LABS: HEMATOCRIT 40.3 % (37.0-47.0); HEMOGLOBIN 12.9 g/dl (12.0-16.0); MEAN CELL VOLUME 93.3 fl (81.0-99.0); MEAN CORPUSCULAR HGB 29.9 pg (27.0-31.0); PLATELET COUNT AUTOMATED 229 10*3/uL (130-400); RED BLOOD COUNT 4.32 10*6/uL (4.10-5.10); RED CELL DISTRI WIDTH 12.9 % (0-14.5); WHITE BLOOD COUNT 17.8 10*3/uL (4.8-10.8)
[2019-05-02 06:28] LABS: CREATININE 1.13 mg/dL (0.55-1.02)
[2019-05-02 06:54] LABS: TOTAL CELLS COUNTED 100 #CELLS
[2019-05-02 06:55] LABS: PLATELET SUFFICIENCY NORMAL (NORMAL)
--- NOTE | 2019-05-02 11:55 | NUR ---
PT. UNAVAILABLE OFF FLOOR FOR PROCEDURE.
[2019-05-02 12:00] VITALS: BP 129/67
--- NOTE | 2019-05-02 14:13 | NUR ---
INFORMED SIGNED CONSENT OBTAINED FOR LEXISCAN STRESS TEST WITH DR DICKERSON. RESTING EKG SINUS BRADYCARDIA HR 48 BP 92/58. T WAVE INVERSION AVR AND AVL. PT PULSE OX 95% LUNGS CLEARLY DIMINISHED. PT COMPLETED ONE MINUTE OF A LEXISCAN PROTOCOL WITH PT RECEVING LEXISCAN 0.4MG IV OVER 10 SECONDS. NO ARRHYTMIAS NOTED NO ST CHANGES SEEN. PT HAD A WARM FEELING WITH INJECTION. LAST RECOVERY HR OF 81 BP 145/80. PT IN STABLE CONDITION, AWAITING NUCLEAR IMAGES.
--- NOTE | 2019-05-02 15:36 | NUR ---
PT. REFUSED AEROSOL TREATMENT AT THIS TIME
[2019-05-02 16:00] VITALS: BP 127/57
[2019-05-02 20:00] VITALS: BP 124/47
--- NOTE | 2019-05-02 20:03 | NUR ---
24 HOUR CHART CHECK COMPLETE
--- NOTE | 2019-05-02 20:20 | NUR ---
PATIENT ASSESSMENT COMPLETED AT THIS TIME WITHOUT INCIDENT. PATIENT DENIES ANY CHEST PAIN/PRESSURE OR SHORTNESS OF BREATH AT THIS TIME. PATIENT DOES CONTINUE TO COMPLAIN OF NAUSEA FROM EARLIER STRESS TEST, ZOFRAN ADMINISTERED ON PRIOR SHIFT, WILL CONTINUE TO MONITOR. CALL LIGHT WITHIN REACH WILL CONTINUE TO MONITOR.
[2019-05-03] VITALS: BP 115/48
[2019-05-03 00:20] VITALS: BP 115/48
--- NOTE | 2019-05-03 00:40 | NUR ---
PATIENT SPO2 88% ON ROOM AIR, PATIENT PLACED ON NC 2LPM, PATIENT ASYMPTOMATIC.
--- NOTE | 2019-05-03 05:44 | NUR ---
PATIENT REFUSED NEURONTIN AT THIS TIME DUE TO CONINTUED NAUSEA. PATIENT MEDICATED WITH ZOFRAN AT THIS TIME.
[2019-05-03 08:00] VITALS: BP 98/68
--- NOTE | 2019-05-03 11:52 | NUR ---
case management visits with patient, she states she will return ohme and denies any home needs
[2019-05-03 12:00] VITALS: BP 111/50
--- NOTE | 2019-05-03 13:42 | NUR ---
PATIENT TESTED FOR HOME OXYGEN USE. AT REST: HEART RATE:53 RESPIRATORY RATE:18 BLOOD PRESSURE:98/68 SPO2:95% DURING AMBULATION: HEART RATE:64 RESPIRATORY RATE:20 SPO2:92-95% NO NEED FOR HOME OXYGEN
[2019-05-03 16:00] VITALS: BP 104/44
--- NOTE | 2019-05-03 17:00 | NUR ---
PT RELAXED WITH NO S/S OF DISTRESS NOTED. PT REFUSING PO MEDS AT THIS TIME DUE TO NAUSEA. WILL REASSESS LATER. CALL LIGHT IN REACH AT ALL TIMES.
--- NOTE | 2019-05-03 19:45 | NUR ---
24 HOUR CHART CHECK COMPLETED
[2019-05-03 20:00] VITALS: BP 136/62
--- NOTE | 2019-05-03 22:34 | NUR ---
ONE TIME DOSE OF PHENERGAN IV GIVEN AT THIS TIME FOR NAUSEA. PATIENT STATED THAT THE ZOFRAN WAS NOT HELPING WITH HER NAUSEA.
[2019-05-04] VITALS: BP 140/63
[2019-05-04 06:48] LABS: HEMATOCRIT 39.5 % (37.0-47.0); HEMOGLOBIN 12.8 g/dl (12.0-16.0); MEAN CELL VOLUME 93.4 fl (81.0-99.0); MEAN CORPUSCULAR HGB 30.3 pg (27.0-31.0); MEAN CORPUSCULAR HGB CONC 32.4 g/dl (33.0-37.0); MEAN PLATELET VOLUME 11.2 fl (9.6-12.3); PLATELET COUNT AUTOMATED 182 10*3/uL (130-400); RED BLOOD COUNT 4.23 10*6/uL (4.10-5.10); RED CELL DISTRI WIDTH 12.8 % (0-14.5); WHITE BLOOD COUNT 13.9 10*3/uL (4.8-10.8)
[2019-05-04 07:23] LABS: BUN 41 mg/dl (7-24); CHLORIDE 104 mmol/L (98-107); CREATININE 1.11 mg/dL (0.55-1.02); POTASSIUM 4.6 mmol/L (3.5-5.1); SODIUM 139 mmol/L (136-145)
[2019-05-04 08:01] LABS: ATYPICAL LYMPHS 1 % (0-0); PLATELET SUFFICIENCY NORMAL (NORMAL); TOTAL CELLS COUNTED 100 #CELLS
[2019-05-04 08:47] VITALS: BP 112/68
[2019-05-04 12:00] VITALS: BP 102/50
[2019-05-04 16:00] VITALS: BP 116/72
--- NOTE | 2019-05-04 16:29 | NUR ---
SPOKE WITH RESPIRATORY ABOUT PT NEEDED HOME O2. PER RESPIRATORY PT NEEDS TO HAVE A SLEEP STUDY DONE TO BE ABLE TO QUALIFY PT FOR HOME 02. DR. ALFORD WAS NOTIFIED AND DISCHARGE PLANS WERE HELD FOR ONE MORE NIGHT.
--- NOTE | 2019-05-04 19:25 | NUR ---
NEW IV WAS PLACED IN LAC.
--- NOTE | 2019-05-04 19:53 | NUR ---
ZOFRAN EFFECTIVE PER PT.
[2019-05-04 20:00] VITALS: BP 120/58
--- NOTE | 2019-05-04 22:30 | NUR ---
pt placed on nocturnal pulse ox. taped. room air
[2019-05-05] VITALS: BP 102/41
--- NOTE | 2019-05-05 01:28 | NUR ---
24 HR chart check completed.
--- NOTE | 2019-05-05 03:00 | NUR ---
SLEEPING NO ACUTE DISTRESS NOTED.
--- NOTE | 2019-05-05 05:44 | NUR ---
PT. C/O NAUSEA AND WAS UNABLE TO KEEP CRACKERS DOWN PER PT. ZOFRAN GIVEN PER ORDER FOR NAUSEA. NO PO MEDICATIONS GIVEN AT THIS TIME PT. WAITING FOR NAUSEA TO SUBSIDE.
--- NOTE | 2019-05-05 06:59 | NUR ---
PT. STATED ZOFRAN NOT COMPLETELY EFFECTIVE AND REFUSED NEURTONIN AT THIS TIME BUT DID TAKE PRILOSEC PER ORDER.
[2019-05-05 07:31] LABS: BUN 38 mg/dl (7-24); CHLORIDE 105 mmol/L (98-107); POTASSIUM 4.8 mmol/L (3.5-5.1); SODIUM 140 mmol/L (136-145)
[2019-05-05 07:32] LABS: CREATININE 1.03 mg/dL (0.55-1.02)
[2019-05-05 08:00] VITALS: BP 124/56
--- NOTE | 2019-05-05 08:00 | NUR ---
Patient resting quietly with no c/o discomfort. Respirations easy and regular. Vital signs stable. No overt distress. PATRICIO GIL
--- NOTE | 2019-05-05 10:30 | NUR ---
Robotic Machine Tender Production in to see patient. Discussed home health care services and she is agreeable. When provided with a list of agencies she chose [facility]. She states her daughter is her go to person and she has been helping with [facility]. She states her insurance is changing to [employer] and she is going to work with her insurance to see about helping with her front steps. There are 10 steps to get up to her house. Asked patient if she reached out to anyone since her last admission regarding her steps. She stated no she had not reached out to anyone but has since moved from [place] to [place] off of [facility]. She believes she has everything else she could possibly need at home. When medically stable she will be discharged to home with [facility] services. Her daughter will provide transportation on discharge.
--- NOTE | 2019-05-05 10:46 | NUR ---
PT AMBULATING IN HALLWAY AT THIS TIME. NO DISTRESS.
[2019-05-05 12:00] VITALS: BP 123/52
[2019-05-05] MEDS ORDERED: PREDNISONE10 MG PO (13:06)
[2019-05-05] MEDS ORDERED: PHENERGAN25 M3 PO (13:42)
--- NOTE | 2019-05-05 14:01 | NUR ---
Faxed new home health referral to [facility]
--- NOTE | 2019-05-05 14:42 | NUR ---
Discharge instructions reviewed with patient/family. Patient receptive and verbalizes understanding. Follow-up care arranged. Written instructions given to patient/family. PATRICIO GIL.
== END 2019-05-05 14:42 | disposition home or self-care (01) | DRG 191 ==
LOC: ED 11:20 → 4E 13:41 → EDHOLD 13:41 → 4E 13:51
PROVIDERS: Emergency Medicine; Internal Medicine; Internal Medicine Nephrology; ADMIT Internal Medicine
PROC: 4A02XM4 Measurement of Cardiac Total Activity, External Approach (ICD-10-PCS; principal; 2019-05-02)
PROC: 3E073KZ Introduction of Other Diagnostic Substance into Coronary Artery, Percutaneous Approach (ICD-10-PCS; principal; 2019-05-02)
DX: J44.1 Chronic obstructive pulmonary disease with (acute) exacerbation (principal); I47.1 Supraventricular tachycardia; Z68.41 Body mass index [BMI] 40.0-44.9, adult; K21.9 Gastro-esophageal reflux disease without esophagitis; I10 Essential (primary) hypertension; N26.1 Atrophy of kidney (terminal); K58.9 Irritable bowel syndrome, unspecified; R32 Unspecified urinary incontinence; M54.9 Dorsalgia, unspecified; G89.29 Other chronic pain; F32.9 Major depressive disorder, single episode, unspecified; M54.2 Cervicalgia; R07.89 Other chest pain; J22 Unspecified acute lower respiratory infection; E66.01 Morbid (severe) obesity due to excess calories; Z98.84 Bariatric surgery status; Z87.891 Personal history of nicotine dependence; Z87.442 Personal history of urinary calculi; Z88.5 Allergy status to narcotic agent; Z88.0 Allergy status to penicillin; Z88.2 Allergy status to sulfonamides; Z88.8 Allergy status to other drugs, medicaments and biological substances; Z91.040 Latex allergy status; Z79.899 Other long term (current) drug therapy; Z98.51 Tubal ligation status; Z81.1 Family history of alcohol abuse and dependence; Z83.3 Family history of diabetes mellitus; Z82.49 Family history of ischemic heart disease and other diseases of the circulatory system; Z83.6 Family history of other diseases of the respiratory system

== ENCOUNTER 2019-05-06 08:49 | Inpatient (IN) | payer OTHER, MEDICAID ==
[~2019-05-06] VITALS: Ht 165.1 cm; Wt 113.6 kg
[~2019-05-06 08:49] MED LIST changes: +PHENERGAN25 M3 PO; +PREDNISONE10 MG PO
[2019-05-06 08:50] VITALS: BP 113/48
[2019-05-06 09:16] LABS: HEMATOCRIT 43.1 % (37.0-47.0); HEMOGLOBIN 14.5 g/dl (12.0-16.0); MEAN CELL VOLUME 90.7 fl (81.0-99.0); MEAN CORPUSCULAR HGB 30.5 pg (27.0-31.0); MEAN CORPUSCULAR HGB CONC 33.6 g/dl (33.0-37.0); MEAN PLATELET VOLUME 11.2 fl (9.6-12.3); PLATELET COUNT AUTOMATED 181 10*3/uL (130-400); RED BLOOD COUNT 4.75 10*6/uL (4.10-5.10); RED CELL DISTRI WIDTH 12.9 % (0-14.5); WHITE BLOOD COUNT 21.9 10*3/uL (4.8-10.8)
[2019-05-06 09:25] LABS: ACT PARTIAL THROMBO TIME 20.3 SECONDS (20.0-32.1)
[2019-05-06 09:33] LABS: ALBUMIN 3.2 gm/dl (3.1-4.5); ALKALINE PHOSPHATASE 68 U/L (45-117); BUN 37 mg/dl (7-24); CHLORIDE 103 mmol/L (98-107); CREATININE 1.17 mg/dL (0.55-1.02); LIPASE 331 U/L (73-393); POTASSIUM 4.2 mmol/L (3.5-5.1); SGOT/AST 16 IU/L (3-35); SGPT/ALT 19 U/L (12-78); SODIUM 141 mmol/L (136-145); TOTAL PROTEIN 6.4 gm/dL (6.4-8.2)
[2019-05-06 09:34] LABS: TROPONIN I < 0.015 ng/ml (<0.045)
[2019-05-06 09:41] LABS: TOTAL CELLS COUNTED 100 #CELLS
[2019-05-06 09:42] LABS: PLATELET SUFFICIENCY NORMAL (NORMAL)
--- NOTE | 2019-05-06 10:15 | NUR ---
PT STATES "I WAS SUPPOSSED TO HAVE OXYGEN WHEN I WAS DISCHARGED, CAN I HAVE IT ON NOW?". 2L NC O2 STARTED.
[2019-05-06 10:27] VITALS: BP 114/66
--- NOTE | 2019-05-06 11:23 | NUR ---
MULTIPLE MED ORDERS, AEROSOL ORDER AND CT ORDERS WERE ORDERED AT THE SAME TIME ADMISSION AND WILL DELAY PT TRANSPORT AND ADMISSION TO THE ADMISSION FLOOR.
[2019-05-06 12:03] VITALS: BP 121/48
--- NOTE | 2019-05-06 12:05 | NUR ---
PT TAKEN TO CT NOW.
[2019-05-06 12:40] VITALS: BP 132/50
--- NOTE | 2019-05-06 13:56 | NUR ---
Java Developer With Security Clearance in to talk to patient. Patient states lives at home alone with her family checking in on her. There are 0 steps in the home. Physician: Dr. Jerzy Juarez [facility] Home health services: none Patient's level of ADLs: minimal assistance Patient has working utilities: yes DME: walker, cane Follow-up physician's appointment after d/c: she prefers to make her own follow up appt after discharge Does patient want to access PORTAL?: no Discharge plan discussed with patient and daughter who is at the bedside. She lives at home alone with her family checking in on her. She is independent in her ADLs and ambulates with either a walker or a cane. Discussed home health care services and she is agreeable and was supposed to have [facility] at home on last discharge but was not home long enough to be seen. Discussed short term SNF and she refuses. When medically stable she will be discharged to home with [facility] services. Her daughter will provide transportation on discharge. WOLF NOBLES
[2019-05-06 16:00] VITALS: BP 134/65
--- NOTE | 2019-05-06 19:10 | NUR ---
ASSESSMENT COMPLETED THIS TIME. RESPIRATIONS EASY AND REGULAR. PT HAS NO NEEDS AT THIS TIME. CALL LIGHT WITHIN REACH. WILL MONITOR.
[2019-05-06 20:00] VITALS: BP 115/56
--- NOTE | 2019-05-06 20:45 | NUR ---
PT STATES SHE HAS A HEADACHE AND JUST THREW UP. REQUESTING TYLENOL AND SOMETHING FOR NAUSEA. MEDICATED WITH PRN TYLENOL AND ZOFRAN ORDERED AT THIS TIME. WILL CHECK EFFECTIVENESS.
--- NOTE | 2019-05-06 21:30 | NUR ---
PT SLEEPING. RESPIRATIONS EASY AND REGULAR. NO SIGNS OF DISTRESS NOTED. TYLENOL AND ZOFRAN SEEM TO BE EFFECTIVE. WILL MONITOR.
--- NOTE | 2019-05-06 22:34 | NUR ---
INFROMED DR. WALTER OF PTS HR AND BP TO KNOW IF HE WANTED ME TO HOLD THE ATENOLOL. PER HOLD ATENOLOL.
[2019-05-07] VITALS: BP 112/51
--- NOTE | 2019-05-07 00:31 | NUR ---
INFORMED PT HAS BEEN HANGING OUT IN THE 40S ON THE MONITOR AND HAS DIPPED DOWN TO 39 TWICE NOW. NO NEW ORDERS RECEIVED.
--- NOTE | 2019-05-07 02:12 | NUR ---
24 HR chart check completed.
--- NOTE | 2019-05-07 03:57 | NUR ---
PT CO NAUSEA AND REQUESTING SOMETHING. MEDICATED WITH PRN ZOFRAN ORDERED. WILL CHECK EFFECTIVENESS. CALL LIGHT WITHIN REACH.
--- NOTE | 2019-05-07 04:48 | NUR ---
Patient sleeping. Respirations relaxed and easy. Siderails up . [place] on. ALBERT MENA
--- NOTE | 2019-05-07 06:48 | NUR ---
INFORMED OF NEW CONSULT.
[2019-05-07 07:13] LABS: HEMATOCRIT 39.7 % (37.0-47.0); HEMOGLOBIN 13.1 g/dl (12.0-16.0); MEAN CELL VOLUME 92.5 fl (81.0-99.0); MEAN CORPUSCULAR HGB 30.5 pg (27.0-31.0); MEAN PLATELET VOLUME 11.8 fl (9.6-12.3); PLATELET COUNT AUTOMATED 133 10*3/uL (130-400); RED BLOOD COUNT 4.29 10*6/uL (4.10-5.10); RED CELL DISTRI WIDTH 12.9 % (0-14.5); WHITE BLOOD COUNT 12.4 10*3/uL (4.8-10.8)
--- NOTE | 2019-05-07 07:17 | NUR ---
PT SLEEPING. RESPIRATIONS EASY AND REGULAR. ZOFRAN SEEMS TO BE EFFECTIVE.
[2019-05-07 07:38] LABS: BUN 35 mg/dl (7-24); CHLORIDE 104 mmol/L (98-107); CREATININE 1.05 mg/dL (0.55-1.02); POTASSIUM 4.3 mmol/L (3.5-5.1); SODIUM 140 mmol/L (136-145)
[2019-05-07 08:11] LABS: PLATELET SUFFICIENCY NORMAL (NORMAL); TOTAL CELLS COUNTED 100 #CELLS
--- NOTE | 2019-05-07 08:40 | NUR ---
DR SARAH CHIU PT, ORDER RECIEVED.
[2019-05-07 12:00] VITALS: BP 112/67
--- NOTE | 2019-05-07 12:27 | NUR ---
NOTIFIED DR SMITH OF 30 SEC RUN OF SVT. PT ASYMPTOMATIC AND RESTING IN BED. VOICES NO C/O.DR SMITH NOT CONCERNED. HE ROUNDED THIS AM AND MADE MED CHANGES NO NEW ORDERS. PER DR SMITH MED CHANGE WILL STAY SAME.
--- NOTE | 2019-05-07 13:04 | NUR ---
NORCO 5/325 GIVEN FOR C/O PAIN,01/11.
[2019-05-07 16:00] VITALS: BP 99/51
--- NOTE | 2019-05-07 17:39 | NUR ---
PHENERGRYN 25 MG AND TYLENOL 650 MG GIVEN FOR C/O PAIN,11/10.
--- NOTE | 2019-05-07 19:10 | NUR ---
IN TO SEE PT. ASSESSMENT COMPLETED AT THIS TIME. PT STATES SHE IS FEELING A LOT BETTER TODAY AND HAPPY THAT THE DOCTORS HAD MORE ANSWERS FOR HER TODAY. NO COMPLAINTS AT THIS TIME AND STATES SHE DOES NOT NEED ANYTHING AT THIS TIME. CALL LIGHT WITHIN REACH. WILL CONTINUE TO MONITOR.
[2019-05-07 20:00] VITALS: BP 80/44; BP 98/50
--- NOTE | 2019-05-07 21:17 | NUR ---
NOTIFIED OF MANUAL BP OF 98/50. SEE NEW ORDERS. WILL MONITOR.
--- NOTE | 2019-05-07 23:46 | NUR ---
PT STATES SHE IS FEELING VERY NAUSEOUS AND REQUESTING SOMETHING FOR IT. MEDICATED WITH PRN ZOFRAN ORDERED. WILL CHECK EFFECTIVENESS. CALL LIGHT WITHIN REACH.
[2019-05-08] VITALS: BP 114/65
--- NOTE | 2019-05-08 01:00 | NUR ---
PT STATES ZOFRAN WAS EFFECTIVE.
--- NOTE | 2019-05-08 02:46 | NUR ---
24 HR chart check completed.
[2019-05-08 08:00] VITALS: BP 100/54
--- NOTE | 2019-05-08 08:43 | NUR ---
24 HR chart check completed.
--- NOTE | 2019-05-08 09:37 | NUR ---
RESTING IN BED. RESPIRATIONS EASY. LUNGS DIMINISHED WITH POOR AIR MOVEMENT. PULSE OX 96% RA. INFREQUENT NON-PROD COUGH. MEDICATED WITH DULCOLAX PER PRN ORDER FOR C/O CONSTIPATION. CALL LIGHT WITHIN REACH.
[2019-05-08 12:00] VITALS: BP 99/49
--- NOTE | 2019-05-08 12:00 | NUR ---
SITTING AT BEDSIDE WATCHING TV, NO DISTRESS NOTED. RESPIRATIONS EASY. VSS. CALL LIGHT WITHIN REACH
--- NOTE | 2019-05-08 15:00 | NUR ---
DR ALFORD HERE TO ASSESS PATIENT AND DISCUSS PLAN OF CARE
--- NOTE | 2019-05-08 15:50 | NUR ---
AMBULATING HALLWAY WITH FAMILY. NO DISTRESS NOTED. NO VOICED COMPLAINTS
[2019-05-08 16:00] VITALS: BP 105/58
[2019-05-08 17:43] LABS: BILIRUBIN NEGATIVE (NEGATIVE); BLOOD TRACE-LYSED (NEGATIVE); CLARITY CLEAR (CLEAR); COLOR YELLOW (YELLOW); GLUCOSE NEGATIVE (NEGATIVE); KETONE NEGATIVE (NEGATIVE); LEUKO ESTERASE NEGATIVE (NEGATIVE); NITRITE NEGATIVE (NEGATIVE); SPECIFIC GRAVITY 1.015 (1.005-1.030); UROBILINOGEN 0.2 E.U./dl (0.2-1.0)
[2019-05-08 17:49] LABS: RBC 0-2 rbc/hpf (0-2)
[2019-05-08 17:50] LABS: BACTERIA 1+
--- NOTE | 2019-05-08 18:45 | NUR ---
ATTEMPTED TO REACH DR ALFORD REGARDING UA RESULTS PER REQUEST. UA NEG, NO CULTURE REQUIRED
[2019-05-08 20:00] VITALS: BP 100/56
[2019-05-09] VITALS: BP 100/49
--- NOTE | 2019-05-09 02:06 | NUR ---
24 HR chart check completed.
--- NOTE | 2019-05-09 04:32 | NUR ---
Patient sleeping. Respirations relaxed and easy. Siderails up . [place] on. YULIET SOLANO
[2019-05-09 07:39] VITALS: BP 100/58
--- NOTE | 2019-05-09 07:54 | NUR ---
PATIENT RESTING COMFORTABLY IN BED, PLEASANT, COOPERATIVE, SOB WITH EXERTION. BLAIRE MORAN [facility]
[2019-05-09 09:48] VITALS: BP 108/60
--- NOTE | 2019-05-09 10:30 | NUR ---
Associate Programmer Analyst in to see patient. No new needs or request at this time. Discussed home health care services and she currently has [facility] nursing and PT/OT and would like to resume those services upon discharge. She states she is going to follow up with Dr. Matos on discharge and would like CM to make the appt with no preference of date and time. When medically stable she will be discharged to home with the resumption of her [facility] services. Dr. Syed consulted and changing her medications.
--- NOTE | 2019-05-09 10:35 | NUR ---
PATIENT VISITING WITH FAMILY, COOPERATIVE AND PLEASANT. BLAIRE MORAN [facility]
[2019-05-09 11:21] LABS: HEMATOCRIT 41.4 % (37.0-47.0); HEMOGLOBIN 13.4 g/dl (12.0-16.0); MEAN CELL VOLUME 95.2 fl (81.0-99.0); MEAN CORPUSCULAR HGB 30.8 pg (27.0-31.0); MEAN CORPUSCULAR HGB CONC 32.4 g/dl (33.0-37.0); PLATELET COUNT AUTOMATED 145 10*3/uL (130-400); RED BLOOD COUNT 4.35 10*6/uL (4.10-5.10); RED CELL DISTRI WIDTH 13.4 % (0-14.5); WHITE BLOOD COUNT 21.8 10*3/uL (4.8-10.8)
[2019-05-09 11:36] LABS: ALBUMIN 2.8 gm/dl (3.1-4.5); ALKALINE PHOSPHATASE 85 U/L (45-117); BUN 20 mg/dl (7-24); CHLORIDE 110 mmol/L (98-107); CREATININE 0.92 mg/dL (0.55-1.02); SGOT/AST 4 IU/L (3-35); SGPT/ALT 13 U/L (12-78); SODIUM 144 mmol/L (136-145); TOTAL PROTEIN 5.6 gm/dL (6.4-8.2)
[2019-05-09 11:46] LABS: PLATELET SUFFICIENCY NORMAL (NORMAL); TOTAL CELLS COUNTED 100 #CELLS
[2019-05-09 12:11] VITALS: BP 106/74
--- NOTE | 2019-05-09 12:16 | NUR ---
PATIENT RESTING IN BED, COOPERATIVE WITH ALL AM CARE, NO COMPLAINTS AT THIS TIME. [facility]
--- NOTE | 2019-05-09 12:54 | NUR ---
Attempted to reach Dr. Matos's office x 2 with no success to set up follow up appt. Will try again at a later time.
--- NOTE | 2019-05-09 13:43 | NUR ---
PATIENT AMBULATING AROUND SOLANO WITH SOME SOB, RETURNED TO BED TO REST, NO COMPLAINTS AT THIS TIME. BLAIRE COLLINS
--- NOTE | 2019-05-09 15:08 | NUR ---
Notified patient of her Dr. Matos appointment on May 30 at 1:30pm. She verbalized an understanding.
--- NOTE | 2019-05-09 15:11 | NUR ---
Faxed home health resumption order to [facility]. Patient states Dr. Corbett rounded and ordered the home O2 assessment. She states she could possibly discharged tonight.
[2019-05-09 16:00] VITALS: BP 107/66
--- NOTE | 2019-05-09 17:54 | NUR ---
NOTIFIED THAT PATIENT IS UNABLE TO DISCHARGE HOME TONIGHT, HOME OXYGEN WILL NNOT BE DELIVERED UNTIL TOMORROW
[2019-05-09 20:00] VITALS: BP 110/58
[2019-05-10] VITALS: BP 139/57
--- NOTE | 2019-05-10 | NUR ---
24 HR chart check completed.
--- NOTE | 2019-05-10 02:58 | NUR ---
ZOFRAN GIVEN PER ORDER FOR NAUSEA. SEE MAR.
--- NOTE | 2019-05-10 03:50 | NUR ---
ZOFRAN EFFECTIVE FOR NAUSEA PER PT.
[2019-05-10 08:00] VITALS: BP 112/64
--- NOTE | 2019-05-10 08:30 | NUR ---
Investigative Analyst in to see patient. No new needs or request at this time. She is requesting meals from her insurance company, [employer]. Informed pt she will need to make the call and she verbalized an understanding. Discussed home health care services and she remains agreeable. When medically stable she will be discharged to home with the resumption of her [facility] services.
--- NOTE | 2019-05-10 08:30 | NUR ---
Patient resting quietly with no c/o discomfort. Respirations easy and regular. Vital signs stable. No overt distress. LORI ROMERO R
--- NOTE | 2019-05-10 10:10 | NUR ---
DR JACKSON CALLED RE: PT DISCHARGE. PT OK TO GO HOME NOW. DATE ON DISCHARGE DATE UPDATED.
--- NOTE | 2019-05-10 11:29 | NUR ---
Discharge instructions reviewed with patient/family. Patient receptive and verbalizes understanding. Follow-up care arranged. Written instructions given to patient/family. LORI ROMERO
--- NOTE | 2019-05-10 12:13 | NUR ---
Faxed discharge summary and packet to [facility]
== END 2019-05-10 11:29 | disposition home health service (06) | DRG 191 ==
LOC: ED 08:49 → 4E 11:24 → EDHOLD 11:24 → 4E 11:51
PROVIDERS: Emergency Medicine; Internal Medicine; Internal Medicine Nephrology; ADMIT Internal Medicine
DX: J44.1 Chronic obstructive pulmonary disease with (acute) exacerbation (principal); E44.0 Moderate protein-calorie malnutrition; Z68.41 Body mass index [BMI] 40.0-44.9, adult; I47.1 Supraventricular tachycardia; K21.9 Gastro-esophageal reflux disease without esophagitis; G89.29 Other chronic pain; M54.9 Dorsalgia, unspecified; I10 Essential (primary) hypertension; F32.9 Major depressive disorder, single episode, unspecified; E66.01 Morbid (severe) obesity due to excess calories; K58.2 Mixed irritable bowel syndrome; G47.33 Obstructive sleep apnea (adult) (pediatric); I95.9 Hypotension, unspecified; T44.7X5A Adverse effect of beta-adrenoreceptor antagonists, initial encounter; T38.0X5A Adverse effect of glucocorticoids and synthetic analogues, initial encounter; R00.1 Bradycardia, unspecified; Z91.19 Patient's noncompliance with other medical treatment and regimen; Z98.51 Tubal ligation status; Z87.891 Personal history of nicotine dependence; Z81.1 Family history of alcohol abuse and dependence; Z83.3 Family history of diabetes mellitus; Z82.49 Family history of ischemic heart disease and other diseases of the circulatory system; Z83.6 Family history of other diseases of the respiratory system; Z88.5 Allergy status to narcotic agent; Z88.0 Allergy status to penicillin; Z88.2 Allergy status to sulfonamides; Z88.8 Allergy status to other drugs, medicaments and biological substances; Z91.040 Latex allergy status; Z79.899 Other long term (current) drug therapy; Y92.89 Other specified places as the place of occurrence of the external cause

== ENCOUNTER 2019-07-02 19:09 | Inpatient (IN) | payer OTHER, MEDICAID ==
[~2019-07-02] VITALS: Ht 167.6 cm; Wt 120.7 kg
[2019-07-02 19:19] VITALS: BP 122/68
[2019-07-02 19:57] LABS: BASO % 0.2 % (0.0-1.0); EOS # 0.3 10*3/uL (0.0-0.4); HEMOGLOBIN 12.7 g/dl (12.0-16.0); LYMPH # 1.8 10*3/uL (1.3-4.4); MEAN CORPUSCULAR HGB 30.2 pg (27.0-31.0); MEAN CORPUSCULAR HGB CONC 31.8 g/dl (33.0-37.0); MEAN PLATELET VOLUME 10.9 fl (9.6-12.3); MONO # 0.7 10*3/uL (0.1-1.0); MONO % 8.3 % (3.0-9.0); NEUT # 5.6 10*3/uL (2.3-7.9); NEUT % 66.3 % (47.0-73.0); PLATELET COUNT AUTOMATED 167 10*3/uL (130-400); RED BLOOD COUNT 4.21 10*6/uL (4.10-5.10); WHITE BLOOD COUNT 8.5 10*3/uL (4.8-10.8)
[2019-07-02 20:16] LABS: ALBUMIN 2.9 gm/dl (3.1-4.5); ALKALINE PHOSPHATASE 110 U/L (45-117); BUN 13 mg/dl (7-24); CHLORIDE 107 mmol/L (98-107); CREATININE 1.05 mg/dL (0.55-1.02); SGOT/AST 11 IU/L (3-35); SGPT/ALT 11 U/L (12-78); SODIUM 141 mmol/L (136-145); TOTAL PROTEIN 6.2 gm/dL (6.4-8.2)
[2019-07-02 20:17] LABS: TROPONIN I < 0.015 ng/ml (<0.045)
[2019-07-02 20:50] VITALS: BP 119/65
--- NOTE | 2019-07-02 20:51 | NUR ---
PT RESTING IN BED WITH FAMILY AT BEDSIDE. SHE DOES HAVE A DRY COUGH PRESENT. VS STABLE.
[2019-07-02 21:45] VITALS: BP 128/64
--- NOTE | 2019-07-02 21:45 | NUR ---
A 58, admitted to 4E, under the services of KIRA Amado MD with a diagnosis of COPD EXACERBATION/CHEST PAIN. Chief complaint is MULTIPLE COMPLAINTS. Patient arrived via stretcher from ER. Monitor applied. Initial assessment completed. Vital signs taken and recorded. KIRA AMADO MD notified of admission to the unit. Orders received. See assessment for past medical history, medications and allergies. Patient and/or family oriented to unit. visitation policy reviewed. Clothing/patient valuable form completed. LOUISE BROWN
[2019-07-03] VITALS: BP 111/62
[2019-07-03] MEDS ORDERED: HYDROCODONE-AC1 EAC1 PO (00:57)
--- NOTE | 2019-07-03 06:41 | NUR ---
PT MEDICATED WITH PRN TYLENOL FOR C/O HEADACHE RATED A 7/10. WILL MONITOR FOR EFFECTIVENESS.
[2019-07-03 06:44] LABS: HEMATOCRIT 37.9 % (37.0-47.0); HEMOGLOBIN 12.1 g/dl (12.0-16.0); MEAN CORPUSCULAR HGB CONC 31.9 g/dl (33.0-37.0); MEAN PLATELET VOLUME 11.1 fl (9.6-12.3); PLATELET COUNT AUTOMATED 165 10*3/uL (130-400); RED BLOOD COUNT 4.03 10*6/uL (4.10-5.10); RED CELL DISTRI WIDTH 13.7 % (0-14.5); WHITE BLOOD COUNT 7.2 10*3/uL (4.8-10.8)
[2019-07-03 07:13] LABS: ALBUMIN 2.7 gm/dl (3.1-4.5); CREATININE 1.17 mg/dL (0.55-1.02); POTASSIUM 3.8 mmol/L (3.5-5.1)
[2019-07-03 07:33] LABS: PLATELET SUFFICIENCY NORMAL (NORMAL); TOTAL CELLS COUNTED 100 #CELLS
--- NOTE | 2019-07-03 07:53 | NUR ---
24 HR chart check completed.
[2019-07-03 08:00] VITALS: BP 118/56
--- NOTE | 2019-07-03 09:00 | NUR ---
SITTING UP IN BED. RESPIRATIONS EASY. LUNGS DIMINISHED. PULSE OX 96% RA, O2 PRESENT AT BEDSIDE BUT NOT IN USE. CLAIMS COUGH PROD FOR YELLOW. CALL LIGHT WITHIN REACH. NO VOICED COMPLAINTS.
[2019-07-03 12:00] VITALS: BP 118/70
--- NOTE | 2019-07-03 12:00 | NUR ---
SITTING AT BEDSIDE. NO DISTRESS NOTED. RESPIRATIONS EASY. VSS. CALL LIGHT WITHIN REACH. NO VOICED COMPLAINTS
[2019-07-03 16:00] VITALS: BP 125/59
--- NOTE | 2019-07-03 17:00 | NUR ---
AMBULATING HALLWAY. NO DISTRESS NOTED
[2019-07-03 20:00] VITALS: BP 112/70
--- NOTE | 2019-07-03 21:51 | NUR ---
PATIENT IS AAOX3 RESTING IN BED WITH EASY AND REGULAR RESPERS ON ROOM AIR. ASSESSMENT IS COMPLETE WITH NO S/S OF DISTRESS NOTED AT THIS TIME. PRN TYLENOL AND CEPACOL GIVEN FOR C/O HEADACHE AND SORE THROAT. BED IS LOW, LOCKED, AND CALL LIGHT IS WITHIN REACH, WILL MONITOR EFFECT, SEE SHIFT ASSESSMENT.
--- NOTE | 2019-07-03 23:00 | NUR ---
PATIENT AMBULATING HALLS. PRN MEDICATIONS EFFECTIVE PER PATIENT.
[2019-07-04] VITALS: BP 111/57
--- NOTE | 2019-07-04 | NUR ---
PATIENT RESTING IN BED WTH EASY AND REGULAR RESPERS ON 2L O2 VIA NC.
--- NOTE | 2019-07-04 03:00 | NUR ---
PATIENT AMBULATING HALLS.
[2019-07-04 06:26] LABS: BASO % 0.1 % (0.0-1.0); EOS % 0.1 % (1.0-4.0); HEMATOCRIT 39.4 % (37.0-47.0); HEMOGLOBIN 12.3 g/dl (12.0-16.0); LYMPH # 1.8 10*3/uL (1.3-4.4); LYMPH % 12.4 % (27.0-41.0); MEAN CELL VOLUME 94.5 fl (81.0-99.0); MEAN CORPUSCULAR HGB 29.5 pg (27.0-31.0); MEAN CORPUSCULAR HGB CONC 31.2 g/dl (33.0-37.0); MEAN PLATELET VOLUME 11.1 fl (9.6-12.3); MONO # 0.7 10*3/uL (0.1-1.0); MONO % 4.9 % (3.0-9.0); NEUT # 11.9 10*3/uL (2.3-7.9); PLATELET COUNT AUTOMATED 202 10*3/uL (130-400); RED BLOOD COUNT 4.17 10*6/uL (4.10-5.10); WHITE BLOOD COUNT 14.5 10*3/uL (4.8-10.8)
--- NOTE | 2019-07-04 06:54 | NUR ---
PRN TYLENOL GIVEN WITH AM MEDICATIONS, PATIENT TOLERATED WELL. CALL LIGHT IS WITHIN REACH.
[2019-07-04 06:55] LABS: BUN 14 mg/dl (7-24); CHLORIDE 106 mmol/L (98-107); CREATININE 0.82 mg/dL (0.55-1.02); POTASSIUM 4.3 mmol/L (3.5-5.1); SODIUM 140 mmol/L (136-145)
[2019-07-04 08:00] VITALS: BP 118/62
--- NOTE | 2019-07-04 09:00 | NUR ---
Wood Machinist Apprentice in to talk to patient. Patient states lives at home alone with her family checking in on her. There are 0 steps in the home. Physician: Dr. Jerzy Juarez [facility] Home health services: has had [facility] in the past but not currently Patient's level of ADLs: minimal assistance Patient has working utilities: yes DME: walker, cane, O2 @ 2L nc and prn, portable O2 tanks, O2 supplier [employer] Follow-up physician's appointment after d/c: she prefers to make her own follow up appt after discharge Does patient want to access PORTAL?: no Discharge plan discussed with patient. She lives at home alone with her family checking in on her. She is independent in her ADLs and ambulates with either a walker or a cane. Discussed home health care services and she denies any home needs at this time. She states [facility] and they are getting her services in her home. Her geriatric case manager is Kaycee Mccall. Discussed short term SNF and she refuses. When medically stable she will be discharged to home. Her daughter will provide transportation on discharge. WOLF NOBLES
[2019-07-04 12:00] VITALS: BP 119/68
--- NOTE | 2019-07-04 14:07 | NUR ---
PT RESTING IN BED. NO COMPLAINTS AT THIS TIME. RESPIRATIONS EASY AND REGULAR. VISITOR AT BEDSIDE. CALL LIGHT WITHIN REACH. WILL CONTINUE TO MONITOR.
[2019-07-04 16:00] VITALS: BP 112/53
--- NOTE | 2019-07-04 19:59 | NUR ---
PATIENT IS AAOX3 RESTING IN BED WITH EASY AND REGULAR RESPERS ON ROOM AIR. ASSESSMENT IS COMPLETE WITH NO C/O OR S/S OF DISTRESS NOTED AT THIS TIME. BED IS LOW, LOCKED, AND CALL LIGHT IS WITHIN REACH. WILL CONTINUE TO MONITOR, SEE SHIFT ASSESSMENT.
[2019-07-04 20:00] VITALS: BP 114/64
[2019-07-05] VITALS: BP 117/51
--- NOTE | 2019-07-05 00:45 | NUR ---
PHENERGAN GIVEN PER PATIENT REQUEST FOR COMPLAINTS OF NAUSEA. WILL ASSESS EFFECTIVENESS.
--- NOTE | 2019-07-05 04:46 | NUR ---
PATIENT C/O MULTIPLE EMESIS, SHIVERING, AND BACK PAIN. VITAL SIGNS OBTAINED AND WITHIN NORMAL LIMITS. PATIENT ASSESSED. CALL LIGHT IS WITHIN REACH. NO EVIDENCE OF EMESIS NOTED. CALL PLACED TO DR. RUIZ, 4MG IV ZOFRAN ORDERED.
--- NOTE | 2019-07-05 04:57 | NUR ---
CHART CHECK COMPLETE.
[2019-07-05 06:38] LABS: BASO % 0.1 % (0.0-1.0); HEMATOCRIT 38.9 % (37.0-47.0); HEMOGLOBIN 12.3 g/dl (12.0-16.0); LYMPH # 1.3 10*3/uL (1.3-4.4); LYMPH % 12.4 % (27.0-41.0); MEAN CELL VOLUME 94.9 fl (81.0-99.0); MEAN CORPUSCULAR HGB CONC 31.6 g/dl (33.0-37.0); MEAN PLATELET VOLUME 10.9 fl (9.6-12.3); MONO # 0.4 10*3/uL (0.1-1.0); NEUT # 8.6 10*3/uL (2.3-7.9); NEUT % 82.8 % (47.0-73.0); PLATELET COUNT AUTOMATED 199 10*3/uL (130-400); RED CELL DISTRI WIDTH 14.1 % (0-14.5); WHITE BLOOD COUNT 10.4 10*3/uL (4.8-10.8)
[2019-07-05 06:55] LABS: BUN 17 mg/dl (7-24); CHLORIDE 110 mmol/L (98-107); CREATININE 0.94 mg/dL (0.55-1.02); POTASSIUM 4.4 mmol/L (3.5-5.1); SODIUM 144 mmol/L (136-145)
[2019-07-05 08:00] VITALS: BP 92/56
--- NOTE | 2019-07-05 09:00 | NUR ---
Retail Project Merchandiser in to see patient. No new needs or request at this time. When medically stable she will be discharged to home. She denies any home needs.
[2019-07-05 12:00] VITALS: BP 106/58
[2019-07-05 16:00] VITALS: BP 109/49
--- NOTE | 2019-07-05 16:53 | NUR ---
DR RICH NOTIFIED OF CONSULT.
--- NOTE | 2019-07-05 18:01 | NUR ---
CONSULT CALLED TO DR PRAJAPATI, ORDERS RECEIVED.
--- NOTE | 2019-07-05 18:25 | NUR ---
PT NOTIFIED OF ORDERS FROM DR PRAJAPATI, PT AGREEABLE TO EGD
[2019-07-05 20:00] VITALS: BP 115/67
--- NOTE | 2019-07-05 21:33 | NUR ---
CALLED IN. DISCUSSED ABX CURRENTLY ORDERED. INSTRUCTED TO D/C LUCIANA.
[2019-07-06] VITALS (9 sets, daily range): BP systolic 103–151; BP diastolic 54–84
--- NOTE | 2019-07-06 01:19 | NUR ---
PT MEDICATED WITH IV ZOFRAN FOR C/O NAUSEA AND EMESIS. PATIENT STATES "I THREW UP THAT BIG PILL. IT'S ALL BECAUSE OF THAT BIG PILL." WILL MONITOR EFFECTIVENESS OF MEDS. PATIENT ENCOURAGED TO SLEEP ON SIDE TO PREVENT FURTHER ASPIRATION.
--- NOTE | 2019-07-06 03:37 | NUR ---
PT ASLEEP IN BED. RESPIRATIONS EASY. NO S/S OF DISTRESS NOTED. WILL MONITOR. CALL LIGHT IN REACH.
[2019-07-06 06:28] LABS: BASO % 0.2 % (0.0-1.0); EOS % 0.1 % (1.0-4.0); HEMATOCRIT 36.7 % (37.0-47.0); HEMOGLOBIN 11.4 g/dl (12.0-16.0); LYMPH # 1.3 10*3/uL (1.3-4.4); LYMPH % 12.7 % (27.0-41.0); MEAN CELL VOLUME 96.6 fl (81.0-99.0); MEAN CORPUSCULAR HGB CONC 31.1 g/dl (33.0-37.0); MEAN PLATELET VOLUME 10.8 fl (9.6-12.3); MONO # 0.4 10*3/uL (0.1-1.0); MONO % 3.6 % (3.0-9.0); NEUT # 8.4 10*3/uL (2.3-7.9); NEUT % 82.7 % (47.0-73.0); PLATELET COUNT AUTOMATED 171 10*3/uL (130-400); RED CELL DISTRI WIDTH 14.1 % (0-14.5); WHITE BLOOD COUNT 10.1 10*3/uL (4.8-10.8)
[2019-07-06 06:59] LABS: BUN 19 mg/dl (7-24); CHLORIDE 106 mmol/L (98-107); CREATININE 0.99 mg/dL (0.55-1.02); POTASSIUM 4.9 mmol/L (3.5-5.1); SODIUM 141 mmol/L (136-145)
--- NOTE | 2019-07-06 09:00 | NUR ---
Tour Coordinator in to see patient. No new needs or request at this time. She denies any home needs. When medically stable she will be discharged to home. She states she has an EGD scheduled for today. Her family are at her bedside.
--- NOTE | 2019-07-06 23:30 | NUR ---
24 HR chart check completed.
[2019-07-07] VITALS: BP 114/55
[2019-07-07 06:36] LABS: HEMATOCRIT 35.7 % (37.0-47.0); HEMOGLOBIN 11.1 g/dl (12.0-16.0); MEAN CELL VOLUME 94.9 fl (81.0-99.0); MEAN CORPUSCULAR HGB 29.5 pg (27.0-31.0); MEAN CORPUSCULAR HGB CONC 31.1 g/dl (33.0-37.0); MEAN PLATELET VOLUME 10.9 fl (9.6-12.3); PLATELET COUNT AUTOMATED 205 10*3/uL (130-400); RED BLOOD COUNT 3.76 10*6/uL (4.10-5.10); RED CELL DISTRI WIDTH 13.7 % (0-14.5); WHITE BLOOD COUNT 10.2 10*3/uL (4.8-10.8)
[2019-07-07 06:52] LABS: BUN 22 mg/dl (7-24); CHLORIDE 105 mmol/L (98-107); POTASSIUM 4.5 mmol/L (3.5-5.1); SODIUM 140 mmol/L (136-145)
[2019-07-07 07:14] LABS: PLATELET SUFFICIENCY NORMAL (NORMAL); TOTAL CELLS COUNTED 100 #CELLS
[2019-07-07 08:00] VITALS: BP 128/70
--- NOTE | 2019-07-07 08:30 | NUR ---
Christmas Tree Farm Manager in to see patient. No new needs or request at this time. She denies any home needs. When medically stable she will be discharged to home.
[2019-07-07 12:00] VITALS: BP 120/66
--- NOTE | 2019-07-07 12:30 | NUR ---
Patient resting quietly with no c/o discomfort. Respirations easy and regular. Vital signs stable. No overt distress.Family visiting at bedside.Voices no other needs at this time. call light in reach. YAMILKA VALDIVIA
--- NOTE | 2019-07-07 15:30 | NUR ---
TYLENOL 650 MG GIVEN FOR C/O GENERALIZED PAIN PER PT REQUEST.
[2019-07-07 16:00] VITALS: BP 130/72
[2019-07-07 18:04] LABS: ADENOVIRUS Negative (Negative); INFLUENZA A Negative (Negative); INFLUENZA B Negative (Negative); METAPNEUMOVIRUS Negative (Negative); PARAINFLUENZA 1 Negative (Negative); PARAINFLUENZA 2 Negative (Negative); PARAINFLUENZA 3 Negative (Negative); RHINOVIRUS Negative (Negative); RSV A Negative (Negative); RSV B Negative (Negative)
--- NOTE | 2019-07-07 19:28 | NUR ---
24 HR chart check completed.
[2019-07-07 20:00] VITALS: BP 118/61; BP 120/60
--- NOTE | 2019-07-07 20:10 | NUR ---
PT A&Ox3, SITTING IN BED TALKING ON THE PHONE. PATIENT ON ROOM AIR AT THIS TIME, RESPIRATIONS EASY AND UNLABORED. PATIENT HAS NO COMPLAINTS AT THIS TIME. SEE SHIFT ASSESSMENT.
--- NOTE | 2019-07-07 21:44 | NUR ---
PATIENT REQUESTING PAIN MEDICATION FOR NECK AND UPPER BACK PAIN RATED 7/10 ON 0/10 SCALE. NORCO ADMINISTERED PRESCRIBED. WILL MONITOR FOR EFFECTIVENESS.
[2019-07-08] VITALS: BP 129/60
[2019-07-08 06:46] LABS: HEMATOCRIT 36.7 % (37.0-47.0); HEMOGLOBIN 11.6 g/dl (12.0-16.0); MEAN CELL VOLUME 95.3 fl (81.0-99.0); MEAN CORPUSCULAR HGB 30.1 pg (27.0-31.0); MEAN CORPUSCULAR HGB CONC 31.6 g/dl (33.0-37.0); MEAN PLATELET VOLUME 10.6 fl (9.6-12.3); PLATELET COUNT AUTOMATED 209 10*3/uL (130-400); RED BLOOD COUNT 3.85 10*6/uL (4.10-5.10); RED CELL DISTRI WIDTH 13.7 % (0-14.5); WHITE BLOOD COUNT 12.6 10*3/uL (4.8-10.8)
[2019-07-08 07:11] LABS: BUN 20 mg/dl (7-24); CHLORIDE 104 mmol/L (98-107); POTASSIUM 4.5 mmol/L (3.5-5.1); SODIUM 139 mmol/L (136-145)
[2019-07-08 07:12] LABS: PLATELET SUFFICIENCY NORMAL (NORMAL); TOTAL CELLS COUNTED 100 #CELLS
[2019-07-08 08:00] VITALS: BP 138/80; BP 144/72
[2019-07-08] MEDS ORDERED: LEVOFLOXACIN500 MG PO (11:30)
--- NOTE | 2019-07-08 12:11 | NUR ---
Fretted Instrument Inspector in to see patient. Discussed resuming her [facility] at home and she is agreeable. She just wants a nurse, no therapy. She is awaiting her discharge paperwork. Faxed [facility] resumption and discharge clinical to [facility].
--- NOTE | 2019-07-08 12:30 | NUR ---
Received call from Jillian at [facility]. Patient is not current with them and they will need a new home health order. New order received and faxed.
--- NOTE | 2019-07-08 13:00 | NUR ---
Discharge instructions reviewed with patient/family. Patient receptive and verbalizes understanding. Follow-up care arranged. Written instructions given to patient/family. YAMILKA VALDIVIA
--- NOTE | 2019-07-08 13:32 | NUR ---
[facility] stating they are out of network for patients insurance. Contacted [facility], out of network; [facility] who stated they are full and not accepting patients at this time; [facility] stating they are in network and to fax order/referral. All faxed.
== END 2019-07-08 13:00 | disposition home or self-care (01) | DRG 177 ==
LOC: ED 19:09 → EDHOLD 21:11 → 4E 21:11
PROVIDERS: Emergency Medicine Emergency Medical Services; Hospitalist; Internal Medicine Nephrology; ADMIT Internal Medicine
PROC: 0DB68ZX Excision of Stomach, Via Natural or Artificial Opening Endoscopic, Diagnostic (ICD-10-PCS; principal; 2019-07-06)
PROC: 0DB38ZX Excision of Lower Esophagus, Via Natural or Artificial Opening Endoscopic, Diagnostic (ICD-10-PCS; principal; 2019-07-06)
DX: J69.0 Pneumonitis due to inhalation of food and vomit (principal); N17.0 Acute kidney failure with tubular necrosis; J44.1 Chronic obstructive pulmonary disease with (acute) exacerbation; Z68.41 Body mass index [BMI] 40.0-44.9, adult; K21.9 Gastro-esophageal reflux disease without esophagitis; G89.29 Other chronic pain; M54.9 Dorsalgia, unspecified; F32.9 Major depressive disorder, single episode, unspecified; I12.9 Hypertensive chronic kidney disease with stage 1 through stage 4 chronic kidney disease, or unspecified chronic kidney disease; N18.3 Chronic kidney disease, stage 3 (moderate); E88.09 Other disorders of plasma-protein metabolism, not elsewhere classified; D50.9 Iron deficiency anemia, unspecified; N20.0 Calculus of kidney; R73.9 Hyperglycemia, unspecified; E66.01 Morbid (severe) obesity due to excess calories; G47.33 Obstructive sleep apnea (adult) (pediatric); K29.70 Gastritis, unspecified, without bleeding; K22.70 Barrett's esophagus without dysplasia; K44.9 Diaphragmatic hernia without obstruction or gangrene; Z88.0 Allergy status to penicillin; Z98.84 Bariatric surgery status; Z98.51 Tubal ligation status; Z87.891 Personal history of nicotine dependence; Z83.3 Family history of diabetes mellitus; Z82.49 Family history of ischemic heart disease and other diseases of the circulatory system; Z81.1 Family history of alcohol abuse and dependence; Z88.2 Allergy status to sulfonamides; Z88.8 Allergy status to other drugs, medicaments and biological substances; Z91.040 Latex allergy status; Z79.899 Other long term (current) drug therapy

== ENCOUNTER → 2019-12-23 | Outpatient (CLI) | payer MEDICARE ==
[~2019-12-23] MED LIST changes: +HYDROCODONE-AC1 EAC1 PO; +LEVOFLOXACIN500 MG PO
== END | disposition home or self-care (01) ==
LOC: RAD 15:02
DX: M54.5 Low back pain (principal)

== ENCOUNTER → 2020-01-23 | Outpatient (CLI) | payer MEDICARE | END | disposition home or self-care (01) | LOC: MAMMO 00:32 | PROVIDERS: ATTEND Internal Medicine | DX: Z12.31 Encounter for screening mammogram for malignant neoplasm of breast (principal) ==

== ENCOUNTER 2020-03-12 18:05 | Inpatient (IN) | payer MEDICARE ==
[~2020-03-12] VITALS: Ht 172.7 cm; Wt 124.3 kg
[2020-03-12 18:09] VITALS: BP 139/72
[2020-03-12 19:03] LABS: BASO % 0.4 % (0.0-1.0); EOS # 0.2 10*3/uL (0.0-0.4); HEMATOCRIT 41.3 % (37.0-47.0); LYMPH # 2.2 10*3/uL (1.3-4.4); LYMPH % 20.7 % (27.0-41.0); MEAN CELL VOLUME 92.8 fl (81.0-99.0); MEAN CORPUSCULAR HGB 28.3 pg (27.0-31.0); MEAN CORPUSCULAR HGB CONC 30.5 g/dl (33.0-37.0); MEAN PLATELET VOLUME 10.4 fl (9.6-12.3); MONO # 0.8 10*3/uL (0.1-1.0); MONO % 7.3 % (3.0-9.0); NEUT # 7.2 10*3/uL (2.3-7.9); NEUT % 69.3 % (47.0-73.0); PLATELET COUNT AUTOMATED 200 10*3/uL (130-400); RED BLOOD COUNT 4.45 10*6/uL (4.10-5.10); RED CELL DISTRI WIDTH 13.9 % (0-14.5); WHITE BLOOD COUNT 10.4 10*3/uL (4.8-10.8)
[2020-03-12 19:14] LABS: ACT PARTIAL THROMBO TIME 21.2 SECONDS (20.0-32.1)
[2020-03-12 19:25] LABS: ALKALINE PHOSPHATASE 113 U/L (45-117); BUN 9 mg/dl (7-24); CHLORIDE 109 mmol/L (98-107); CREATININE 0.98 mg/dL (0.55-1.02); LIPASE 104 U/L (73-393); POTASSIUM 3.8 mmol/L (3.5-5.1); SGOT/AST 12 IU/L (3-35); SGPT/ALT 14 U/L (12-78); SODIUM 141 mmol/L (136-145); TOTAL PROTEIN 6.5 gm/dL (6.4-8.2)
[2020-03-12 19:28] LABS: TROPONIN I < 0.015 ng/ml (<0.045)
[2020-03-12 20:15] VITALS: BP 122/74
[2020-03-12 20:31] LABS: BILIRUBIN Negative (Negative); BLOOD Negative (Negative); CLARITY Clear (Clear); COLOR Yellow (Yellow); GLUCOSE Negative (Negative); KETONE Negative (Negative); LEUKO ESTERASE 1+ (Negative); NITRITE Negative (Negative); PH 6.5 (4.5-8.0)
[2020-03-12 20:41] VITALS: BP 132/75
[2020-03-12 20:49] LABS: BACTERIA 1+; RBC 0-2 rbc/hpf (0-2)
[2020-03-12 21:20] VITALS: BP 112/61
[2020-03-12 21:51] VITALS: BP 104/58
[2020-03-12 22:35] VITALS: BP 104/58
[2020-03-13 02:11] VITALS: BP 115/74
[2020-03-13 06:12] LABS: BASO % 0.4 % (0.0-1.0); EOS # 0.2 10*3/uL (0.0-0.4); EOS % 2.4 % (1.0-4.0); HEMATOCRIT 38.3 % (37.0-47.0); LYMPH # 1.7 10*3/uL (1.3-4.4); LYMPH % 22.3 % (27.0-41.0); MEAN CELL VOLUME 91.2 fl (81.0-99.0); MEAN CORPUSCULAR HGB 28.6 pg (27.0-31.0); MEAN CORPUSCULAR HGB CONC 31.3 g/dl (33.0-37.0); MEAN PLATELET VOLUME 10.5 fl (9.6-12.3); MONO # 0.6 10*3/uL (0.1-1.0); MONO % 7.1 % (3.0-9.0); NEUT # 5.2 10*3/uL (2.3-7.9); NEUT % 67.4 % (47.0-73.0); PLATELET COUNT AUTOMATED 172 10*3/uL (130-400); RED CELL DISTRI WIDTH 14.1 % (0-14.5); WHITE BLOOD COUNT 7.8 10*3/uL (4.8-10.8)
[2020-03-13 06:54] LABS: BUN 8 mg/dl (7-24); CHLORIDE 109 mmol/L (98-107); POTASSIUM 4.3 mmol/L (3.5-5.1); SODIUM 144 mmol/L (136-145)
[2020-03-13 07:08] VITALS: BP 127/45
[2020-03-13 14:36] VITALS: BP 150/78
[2020-03-13 16:00] VITALS: BP 120/65
[2020-03-13 20:00] VITALS: BP 122/80
[2020-03-14] VITALS: BP 103/62
[2020-03-14 07:33] LABS: BASO % 0.4 % (0.0-1.0); EOS # 0.2 10*3/uL (0.0-0.4); EOS % 2.3 % (1.0-4.0); HEMATOCRIT 38.2 % (37.0-47.0); LYMPH # 1.4 10*3/uL (1.3-4.4); LYMPH % 19.6 % (27.0-41.0); MEAN CELL VOLUME 91.6 fl (81.0-99.0); MEAN CORPUSCULAR HGB 28.3 pg (27.0-31.0); MEAN CORPUSCULAR HGB CONC 30.9 g/dl (33.0-37.0); MEAN PLATELET VOLUME 10.5 fl (9.6-12.3); MONO # 0.6 10*3/uL (0.1-1.0); NEUT # 4.9 10*3/uL (2.3-7.9); NEUT % 69.4 % (47.0-73.0); PLATELET COUNT AUTOMATED 171 10*3/uL (130-400); RED BLOOD COUNT 4.17 10*6/uL (4.10-5.10); RED CELL DISTRI WIDTH 14.2 % (0-14.5); WHITE BLOOD COUNT 7.1 10*3/uL (4.8-10.8)
[2020-03-14 07:52] LABS: CREATININE 1.17 mg/dL (0.55-1.02); POTASSIUM 3.8 mmol/L (3.5-5.1)
[2020-03-14 08:00] VITALS: BP 112/58
[2020-03-14 12:00] VITALS: BP 138/54
[2020-03-14 16:00] VITALS: BP 108/82
[2020-03-14 20:00] VITALS: BP 121/73
[2020-03-15] VITALS: BP 108/57
[2020-03-15 07:29] LABS: CHLORIDE 109 mmol/L (98-107); POTASSIUM 4.2 mmol/L (3.5-5.1); SODIUM 143 mmol/L (136-145)
[2020-03-15 07:45] LABS: BUN 10 mg/dl (7-24); CREATININE 0.98 mg/dL (0.55-1.02)
[2020-03-15 08:00] VITALS: BP 102/69
[2020-03-15 12:00] VITALS: BP 103/63
[2020-03-15 16:00] VITALS: BP 120/72
[2020-03-15 20:00] VITALS: BP 114/68
[2020-03-16] VITALS: BP 123/67
[2020-03-16 07:45] VITALS: BP 110/70
[2020-03-16 12:00] VITALS: BP 128/88
[2020-03-16 15:25] VITALS: BP 129/88
[2020-03-16 17:00] VITALS: BP 132/87
[2020-03-16 20:00] VITALS: BP 118/62
[2020-03-17] VITALS: BP 119/69
[2020-03-17 06:03] LABS: BASO % 0.2 % (0.0-1.0); EOS # 0.3 10*3/uL (0.0-0.4); EOS % 3.1 % (1.0-4.0); HEMATOCRIT 37.8 % (37.0-47.0); LYMPH # 1.2 10*3/uL (1.3-4.4); LYMPH % 13.2 % (27.0-41.0); MEAN CELL VOLUME 90.2 fl (81.0-99.0); MEAN CORPUSCULAR HGB 27.9 pg (27.0-31.0); MEAN PLATELET VOLUME 10.4 fl (9.6-12.3); MONO # 0.6 10*3/uL (0.1-1.0); MONO % 6.6 % (3.0-9.0); NEUT % 76.7 % (47.0-73.0); PLATELET COUNT AUTOMATED 201 10*3/uL (130-400); RED BLOOD COUNT 4.19 10*6/uL (4.10-5.10); RED CELL DISTRI WIDTH 14.1 % (0-14.5); WHITE BLOOD COUNT 9.1 10*3/uL (4.8-10.8)
[2020-03-17 08:00] VITALS: BP 114/59
[2020-03-17 10:42] VITALS: BP 130/88
== END 2020-03-17 14:32 | disposition home or self-care (01) | DRG 327 ==
LOC: ED 18:05 → EDHOLD 21:53 → 4E 21:53 → EDHOLD 03-13 02:39 → 4E 03-13 11:31
PROVIDERS: Internal Medicine; Physician Assistant; ADMIT Internal Medicine; ATTEND Internal Medicine
PROC: 0DB68ZX Excision of Stomach, Via Natural or Artificial Opening Endoscopic, Diagnostic (ICD-10-PCS; principal; 2020-03-17)
PROC: 0DB64Z3 Excision of Stomach, Percutaneous Endoscopic Approach, Vertical (ICD-10-PCS; 2020-03-17)
DX: T18.2XXA Foreign body in stomach, initial encounter (principal); E44.0 Moderate protein-calorie malnutrition; N17.9 Acute kidney failure, unspecified; Z68.41 Body mass index [BMI] 40.0-44.9, adult; J44.1 Chronic obstructive pulmonary disease with (acute) exacerbation; J44.0 Chronic obstructive pulmonary disease with (acute) lower respiratory infection; K22.8 Other specified diseases of esophagus; J34.89 Other specified disorders of nose and nasal sinuses; E88.09 Other disorders of plasma-protein metabolism, not elsewhere classified; R73.9 Hyperglycemia, unspecified; E66.01 Morbid (severe) obesity due to excess calories; E83.41 Hypermagnesemia; F32.9 Major depressive disorder, single episode, unspecified; J45.909 Unspecified asthma, uncomplicated; R32 Unspecified urinary incontinence; N18.30 Chronic kidney disease, stage 3 unspecified; D50.9 Iron deficiency anemia, unspecified; R91.8 Other nonspecific abnormal finding of lung field; K21.9 Gastro-esophageal reflux disease without esophagitis; I12.9 Hypertensive chronic kidney disease with stage 1 through stage 4 chronic kidney disease, or unspecified chronic kidney disease; M54.5 Low back pain; G89.29 Other chronic pain; X58.XXXA Exposure to other specified factors, initial encounter; K58.9 Irritable bowel syndrome, unspecified; K29.70 Gastritis, unspecified, without bleeding; K44.9 Diaphragmatic hernia without obstruction or gangrene; Z88.2 Allergy status to sulfonamides; Z88.0 Allergy status to penicillin; Z88.5 Allergy status to narcotic agent; Z88.8 Allergy status to other drugs, medicaments and biological substances; Z82.49 Family history of ischemic heart disease and other diseases of the circulatory system; Z91.040 Latex allergy status; Z83.3 Family history of diabetes mellitus; Y93.89 Activity, other specified; Y92.89 Other specified places as the place of occurrence of the external cause; Y99.8 Other external cause status; Z98.891 History of uterine scar from previous surgery; Z87.891 Personal history of nicotine dependence

== ENCOUNTER 2020-04-02 16:03 | Emergency (ER) | payer MEDICARE ==
[~2020-04-02] VITALS: Ht 167.6 cm; Wt 117.9 kg
== END 2020-04-02 20:25 | disposition home or self-care (01) ==
LOC: ED 16:03
DX: S80.01XA Contusion of right knee, initial encounter (principal); Z88.0 Allergy status to penicillin; Z88.2 Allergy status to sulfonamides; Z91.040 Latex allergy status; Z88.6 Allergy status to analgesic agent; Z79.899 Other long term (current) drug therapy; Z87.891 Personal history of nicotine dependence; W18.39XA Other fall on same level, initial encounter; Y93.89 Activity, other specified; Y92.89 Other specified places as the place of occurrence of the external cause; Y99.8 Other external cause status

== ENCOUNTER → 2020-04-10 | Outpatient (CLI) | payer MEDICARE | END | disposition home or self-care (01) | LOC: US 11:00 | PROVIDERS: ATTEND Podiatrist | DX: M79.605 Pain in left leg (principal); R60.0 Localized edema ==

== ENCOUNTER → 2020-04-13 | Outpatient (CLI) | payer MEDICARE | END | disposition home or self-care (01) | LOC: RAD 12:55 | PROVIDERS: ATTEND Internal Medicine | DX: J44.1 Chronic obstructive pulmonary disease with (acute) exacerbation (principal) ==

== ENCOUNTER 2020-07-16 17:42 | Emergency (ER) | payer MEDICARE ==
[~2020-07-16] VITALS: Ht 167.6 cm; Wt 122.9 kg
[2020-07-16] MEDS ORDERED: MYCOLOG CREAM 115 GM T ×2 (19:17)
[2020-08-30] MEDS ORDERED: MAALOX ADVANCE1 EACH PO (17:17)
== END 2020-07-16 19:31 | disposition home or self-care (01) ==
LOC: ED 17:42
DX: L30.9 Dermatitis, unspecified (principal); I10 Essential (primary) hypertension; J44.9 Chronic obstructive pulmonary disease, unspecified; K21.9 Gastro-esophageal reflux disease without esophagitis; Z88.0 Allergy status to penicillin; Z91.040 Latex allergy status; Z88.6 Allergy status to analgesic agent; Z88.2 Allergy status to sulfonamides; Z88.8 Allergy status to other drugs, medicaments and biological substances; Z79.899 Other long term (current) drug therapy; Z98.890 Other specified postprocedural states; Z98.51 Tubal ligation status; Z87.442 Personal history of urinary calculi; Z87.891 Personal history of nicotine dependence

== ENCOUNTER → 2020-07-25 | Outpatient (CLI) | payer MEDICARE ==
[~2020-07-25] MED LIST changes: +MAALOX ADVANCE1 EACH PO; +METOCLOPRAMIDE H5 M1 PO; +MYCOLOG CREAM 115 GM T; +OMEPRAZOLE40 MG PO; +RIVASTIGMINE T4.5 M1 PO; +TERBINAFINE250 MG PO
== END | disposition home or self-care (01) ==
LOC: LAB 09:56
PROVIDERS: ATTEND Internal Medicine Nephrology
DX: B37.3 Candidiasis of vulva and vagina (principal)

== ENCOUNTER 2020-08-01 13:30 | Inpatient (IN) | payer MEDICARE ==
[~2020-08-01] VITALS: Ht 165 cm; Wt 119.9 kg
[~2020-08-01 13:30] MED LIST changes: -MAALOX ADVANCE1 EACH PO; -METOCLOPRAMIDE H5 M1 PO; -OMEPRAZOLE40 MG PO; -RIVASTIGMINE T4.5 M1 PO; -TERBINAFINE250 MG PO
[2020-08-01 13:33] VITALS: BP 131/80
[2020-08-01 14:11] LABS: BASO % 0.3 % (0.0-1.0); EOS # 0.2 10*3/uL (0.0-0.4); EOS % 2.3 % (1.0-4.0); HEMATOCRIT 38.1 % (37.0-47.0); LYMPH # 1.6 10*3/uL (1.3-4.4); LYMPH % 16.9 % (27.0-41.0); MEAN CELL VOLUME 89.4 fl (81.0-99.0); MEAN CORPUSCULAR HGB 29.1 pg (27.0-31.0); MEAN CORPUSCULAR HGB CONC 32.5 g/dl (33.0-37.0); MEAN PLATELET VOLUME 10.5 fl (9.6-12.3); MONO # 0.6 10*3/uL (0.1-1.0); MONO % 6.5 % (3.0-9.0); NEUT # 7.1 10*3/uL (2.3-7.9); NEUT % 73.7 % (47.0-73.0); PLATELET COUNT AUTOMATED 183 10*3/uL (130-400); RED BLOOD COUNT 4.26 10*6/uL (4.10-5.10); RED CELL DISTRI WIDTH 13.7 % (0-14.5); WHITE BLOOD COUNT 9.7 10*3/uL (4.8-10.8)
[2020-08-01 14:26] LABS: ACT PARTIAL THROMBO TIME 44.4 SECONDS (20.0-32.1); INTERNATIONAL NORM RATIO 1.8 (2.0-3.5)
[2020-08-01 14:28] LABS: ALBUMIN 2.9 gm/dl (3.1-4.5); ALKALINE PHOSPHATASE 114 U/L (45-117); BUN 11 mg/dl (7-24); CHLORIDE 107 mmol/L (98-107); CREATININE 0.93 mg/dL (0.55-1.02); LIPASE 87 U/L (73-393); POTASSIUM 4.2 mmol/L (3.5-5.1); SGOT/AST 11 IU/L (3-35); SGPT/ALT 14 U/L (12-78); SODIUM 140 mmol/L (136-145); TOTAL PROTEIN 6.4 gm/dL (6.4-8.2); TROPONIN I < 0.015 ng/ml (<0.045)
[2020-08-01 15:37] VITALS: BP 126/58
[2020-08-01 17:00] VITALS: BP 131/71
[2020-08-01 17:20] VITALS: BP 146/94
[2020-08-01] MEDS ORDERED: TERBINAFINE250 MG PO ×2 (17:46→17:54)
[2020-08-01] MEDS ORDERED: METOCLOPRAMIDE H5 M1 PO (17:47)
[2020-08-01 18:00] LABS: BILIRUBIN Negative (Negative); BLOOD Negative (Negative); CLARITY Clear (Clear); COLOR Yellow (Yellow); GLUCOSE Negative (Negative); KETONE Negative (Negative); LEUKO ESTERASE Negative (Negative); NITRITE Negative (Negative); SPECIFIC GRAVITY 1.015 (1.001-1.030)
[2020-08-01 18:11] LABS: BACTERIA TRACE; RBC 0-2 rbc/hpf (0-2)
[2020-08-01 20:00] VITALS: BP 143/79
[2020-08-02] VITALS: BP 130/66
[2020-08-02 06:17] LABS: BASO % 0.2 % (0.0-1.0); EOS % 0.1 % (1.0-4.0); HEMATOCRIT 41.4 % (37.0-47.0); LYMPH # 1.1 10*3/uL (1.3-4.4); LYMPH % 8.1 % (27.0-41.0); MEAN CELL VOLUME 88.8 fl (81.0-99.0); MEAN CORPUSCULAR HGB 29.2 pg (27.0-31.0); MEAN CORPUSCULAR HGB CONC 32.9 g/dl (33.0-37.0); MEAN PLATELET VOLUME 11.1 fl (9.6-12.3); MONO # 0.1 10*3/uL (0.1-1.0); MONO % 0.8 % (3.0-9.0); NEUT # 11.9 10*3/uL (2.3-7.9); PLATELET COUNT AUTOMATED 213 10*3/uL (130-400); RED BLOOD COUNT 4.66 10*6/uL (4.10-5.10); RED CELL DISTRI WIDTH 13.4 % (0-14.5); WHITE BLOOD COUNT 13.2 10*3/uL (4.8-10.8)
[2020-08-02 06:30] LABS: CHLORIDE 107 mmol/L (98-107); POTASSIUM 4.5 mmol/L (3.5-5.1); SODIUM 140 mmol/L (136-145)
[2020-08-02 06:39] LABS: ALBUMIN 3.1 gm/dl (3.1-4.5); ALKALINE PHOSPHATASE 109 U/L (45-117); BUN 15 mg/dl (7-24); CHOLESTEROL 166 mg/dL (<200); CREATININE 0.96 mg/dL (0.55-1.02); HDL CHOLESTEROL 61 mg/dl (40-60); LDL CHOLESTEROL 89 mg/dL (9-159); SGOT/AST 7 IU/L (3-35); SGPT/ALT 17 U/L (12-78); TOTAL PROTEIN 7.1 gm/dL (6.4-8.2); TRIGLYCERIDES 79 mg/dl (<150); VLDL CHOLESTEROL 16 mg/dL (6-40)
[2020-08-02] MEDS ORDERED: OMEPRAZOLE40 MG PO (07:01)
[2020-08-02] MEDS ORDERED: RIVASTIGMINE T4.5 M1 PO (07:02)
[2020-08-02 08:00] VITALS: BP 135/56
[2020-08-02 16:00] VITALS: BP 137/74
[2020-08-02 20:00] VITALS: BP 127/61
[2020-08-03] VITALS: BP 116/56
[2020-08-03 08:00] VITALS: BP 132/74
[2020-08-03 12:00] VITALS: BP 132/66
[2020-08-03 16:00] VITALS: BP 136/65
[2020-08-03 20:00] VITALS: BP 154/65
[2020-08-04] VITALS: BP 147/64
[2020-08-04 08:00] VITALS: BP 145/67
[2020-08-04 12:08] LABS: MEAN CELL VOLUME 90.7 fl (81.0-99.0); MEAN CORPUSCULAR HGB 28.8 pg (27.0-31.0); MEAN CORPUSCULAR HGB CONC 31.7 g/dl (33.0-37.0); MEAN PLATELET VOLUME 10.7 fl (9.6-12.3); PLATELET COUNT AUTOMATED 209 10*3/uL (130-400); RED BLOOD COUNT 4.52 10*6/uL (4.10-5.10); RED CELL DISTRI WIDTH 13.6 % (0-14.5); WHITE BLOOD COUNT 15.8 10*3/uL (4.8-10.8)
[2020-08-04 12:23] LABS: CREATININE 1.24 mg/dL (0.55-1.02); POTASSIUM 3.9 mmol/L (3.5-5.1)
[2020-08-04 12:46] LABS: ATYPICAL LYMPHS 1 % (0-0); TOTAL CELLS COUNTED 100 #CELLS
[2020-08-04 12:47] LABS: PLATELET SUFFICIENCY NORMAL (NORMAL); POLYCHROMASIA SLIGHT
[2020-08-04 16:00] VITALS: BP 148/67
[2020-08-04 20:00] VITALS: BP 124/59
[2020-08-05] VITALS: BP 127/61
[2020-08-05 05:59] LABS: BUN 22 mg/dl (7-24); CHLORIDE 109 mmol/L (98-107); CREATININE 1.01 mg/dL (0.55-1.02); POTASSIUM 4.3 mmol/L (3.5-5.1); SODIUM 138 mmol/L (136-145)
[2020-08-05 08:00] VITALS: BP 143/70
[2020-08-05] MEDS ORDERED: MEDROL DOSEPAK4 MG PO ×2 (11:57)
[2020-08-05] MEDS ORDERED: LEVOFLOXACIN500 MG PO ×2 (11:57)
[2020-08-05 12:00] VITALS: BP 150/76
[2020-08-30] MEDS ORDERED: MAALOX ADVANCE1 EACH PO (17:17)
== END 2020-08-05 13:55 | disposition home or self-care (01) | DRG 191 ==
LOC: ED 13:30 → EDHOLD 15:47 → 4E 15:47 → EDHOLD 15:47 → 4E 16:50
PROVIDERS: Internal Medicine; Physician Assistant; ADMIT Internal Medicine; ATTEND Internal Medicine
DX: J44.1 Chronic obstructive pulmonary disease with (acute) exacerbation (principal); F33.40 Major depressive disorder, recurrent, in remission, unspecified; E44.0 Moderate protein-calorie malnutrition; N17.9 Acute kidney failure, unspecified; Z68.42 Body mass index [BMI] 45.0-49.9, adult; J01.91 Acute recurrent sinusitis, unspecified; K21.9 Gastro-esophageal reflux disease without esophagitis; E66.01 Morbid (severe) obesity due to excess calories; K58.0 Irritable bowel syndrome with diarrhea; J30.9 Allergic rhinitis, unspecified; R00.0 Tachycardia, unspecified; R73.9 Hyperglycemia, unspecified; B35.6 Tinea cruris; R13.10 Dysphagia, unspecified; I12.9 Hypertensive chronic kidney disease with stage 1 through stage 4 chronic kidney disease, or unspecified chronic kidney disease; N18.30 Chronic kidney disease, stage 3 unspecified; R10.13 Epigastric pain; Z20.822 Contact with and (suspected) exposure to COVID-19; Z88.2 Allergy status to sulfonamides; Z88.0 Allergy status to penicillin; Z88.8 Allergy status to other drugs, medicaments and biological substances; Z88.6 Allergy status to analgesic agent; Z91.040 Latex allergy status; Z98.891 History of uterine scar from previous surgery; Z98.51 Tubal ligation status; Z98.84 Bariatric surgery status; Z87.442 Personal history of urinary calculi; Z87.891 Personal history of nicotine dependence; Z83.3 Family history of diabetes mellitus; Z82.49 Family history of ischemic heart disease and other diseases of the circulatory system; Z81.1 Family history of alcohol abuse and dependence; Z83.6 Family history of other diseases of the respiratory system; Z81.2 Family history of tobacco abuse and dependence; Z91.81 History of falling

== ENCOUNTER 2020-08-18 14:37 | Emergency (ER) | payer MEDICARE ==
[~2020-08-18 14:37] MED LIST changes: +METOCLOPRAMIDE H5 M1 PO; +OMEPRAZOLE40 MG PO; +RIVASTIGMINE T4.5 M1 PO; +TERBINAFINE250 MG PO
[2020-08-18 15:02] LABS: BASO % 0.4 % (0.0-1.0); EOS # 0.2 10*3/uL (0.0-0.4); EOS % 2.1 % (1.0-4.0); HEMATOCRIT 43.6 % (37.0-47.0); LYMPH % 18.6 % (27.0-41.0); MEAN CELL VOLUME 89.5 fl (81.0-99.0); MEAN CORPUSCULAR HGB CONC 32.3 g/dl (33.0-37.0); MEAN PLATELET VOLUME 10.3 fl (9.6-12.3); MONO # 0.6 10*3/uL (0.1-1.0); MONO % 5.3 % (3.0-9.0); NEUT # 7.7 10*3/uL (2.3-7.9); NEUT % 73.1 % (47.0-73.0); PLATELET COUNT AUTOMATED 182 10*3/uL (130-400); RED BLOOD COUNT 4.87 10*6/uL (4.10-5.10); RED CELL DISTRI WIDTH 13.8 % (0-14.5); WHITE BLOOD COUNT 10.5 10*3/uL (4.8-10.8)
[2020-08-18 15:15] LABS: ACT PARTIAL THROMBO TIME 26.5 SECONDS (20.0-32.1)
[2020-08-18 15:17] LABS: ALBUMIN 3.3 gm/dl (3.1-4.5); ALKALINE PHOSPHATASE 112 U/L (45-117); BUN 12 mg/dl (7-24); CHLORIDE 106 mmol/L (98-107); CREATININE 1.04 mg/dL (0.55-1.02); POTASSIUM 3.7 mmol/L (3.5-5.1); SGOT/AST 14 IU/L (3-35); SGPT/ALT 18 U/L (12-78); SODIUM 139 mmol/L (136-145)
[2020-08-18 15:18] LABS: TROPONIN I < 0.015 ng/ml (<0.045)
[2020-08-30] MEDS ORDERED: MAALOX ADVANCE1 EACH PO (17:17)
== END 2020-08-18 17:53 | disposition home or self-care (01) ==
LOC: ED 14:37
PROVIDERS: Emergency Medicine
DX: R07.89 Other chest pain (principal); I10 Essential (primary) hypertension; K21.9 Gastro-esophageal reflux disease without esophagitis; J44.9 Chronic obstructive pulmonary disease, unspecified; Z88.0 Allergy status to penicillin; Z88.8 Allergy status to other drugs, medicaments and biological substances; Z88.2 Allergy status to sulfonamides; Z91.040 Latex allergy status; Z88.6 Allergy status to analgesic agent; Z79.899 Other long term (current) drug therapy; Z98.890 Other specified postprocedural states; Z98.51 Tubal ligation status

== ENCOUNTER 2020-09-06 19:31 | Inpatient (IN) | payer MEDICARE ==
[~2020-09-06] VITALS: Ht 175.2 cm; Wt 120.2 kg
[~2020-09-06 19:31] MED LIST changes: +MAALOX ADVANCE1 EACH PO
[2020-09-06 19:46] VITALS: BP 149/78
[2020-09-06 20:40] LABS: HEMATOCRIT 41.2 % (37.0-47.0); MEAN CELL VOLUME 88.4 fl (81.0-99.0); MEAN CORPUSCULAR HGB 28.8 pg (27.0-31.0); MEAN CORPUSCULAR HGB CONC 32.5 g/dl (33.0-37.0); MEAN PLATELET VOLUME 10.4 fl (9.6-12.3); PLATELET COUNT AUTOMATED 199 10*3/uL (130-400); RED BLOOD COUNT 4.66 10*6/uL (4.10-5.10); RED CELL DISTRI WIDTH 14.2 % (0-14.5); WHITE BLOOD COUNT 13.7 10*3/uL (4.8-10.8)
[2020-09-06 21:00] VITALS: BP 132/70
[2020-09-06 21:00] LABS: ATYPICAL LYMPHS 2 % (0-0); BASOPHILS 1 % (0-1); PLATELET SUFFICIENCY NORMAL (NORMAL); TOTAL CELLS COUNTED 100 #CELLS
[2020-09-06 21:27] LABS: ALBUMIN 2.9 gm/dl (3.1-4.5); ALKALINE PHOSPHATASE 100 U/L (45-117); BUN 18 mg/dl (7-24); CHLORIDE 105 mmol/L (98-107); CREATININE 0.88 mg/dL (0.55-1.02); POTASSIUM 3.9 mmol/L (3.5-5.1); SGOT/AST 10 IU/L (3-35); SGPT/ALT 16 U/L (12-78); SODIUM 141 mmol/L (136-145); TOTAL PROTEIN 5.9 gm/dL (6.4-8.2)
[2020-09-06 21:29] LABS: TROPONIN I < 0.015 ng/ml (<0.045)
[2020-09-06 23:10] VITALS: BP 128/62
[2020-09-07 00:42] VITALS: BP 121/56
[2020-09-07 02:00] VITALS: BP 155/72
[2020-09-07 03:34] LABS: HEMATOCRIT 41.4 % (37.0-47.0); MEAN CELL VOLUME 88.5 fl (81.0-99.0); MEAN CORPUSCULAR HGB 29.1 pg (27.0-31.0); MEAN CORPUSCULAR HGB CONC 32.9 g/dl (33.0-37.0); MEAN PLATELET VOLUME 10.1 fl (9.6-12.3); PLATELET COUNT AUTOMATED 184 10*3/uL (130-400); RED BLOOD COUNT 4.68 10*6/uL (4.10-5.10); RED CELL DISTRI WIDTH 14.3 % (0-14.5); WHITE BLOOD COUNT 13.4 10*3/uL (4.8-10.8)
[2020-09-07 03:50] LABS: ALKALINE PHOSPHATASE 95 U/L (45-117); BUN 17 mg/dl (7-24); CHLORIDE 104 mmol/L (98-107); CREATININE 0.92 mg/dL (0.55-1.02); POTASSIUM 4.1 mmol/L (3.5-5.1); SGOT/AST 10 IU/L (3-35); SGPT/ALT 18 U/L (12-78); SODIUM 140 mmol/L (136-145); TOTAL PROTEIN 5.9 gm/dL (6.4-8.2)
[2020-09-07 04:06] LABS: MICROCYTOSIS SLIGHT; PLATELET SUFFICIENCY NORMAL (NORMAL); TOTAL CELLS COUNTED 100 #CELLS
[2020-09-07 08:00] VITALS: BP 123/65
[2020-09-07 12:00] VITALS: BP 125/52; BP 145/63
[2020-09-07 16:00] VITALS: BP 142/58
[2020-09-07 20:00] VITALS: BP 125/63
[2020-09-08] VITALS: BP 115/82
[2020-09-08 00:30] LABS: BILIRUBIN Negative (Negative); BLOOD Trace-Lysed (Negative); CLARITY Clear (Clear); COLOR Yellow (Yellow); GLUCOSE Negative (Negative); KETONE Negative (Negative); LEUKO ESTERASE 2+ (Negative); NITRITE Negative (Negative); PH 6.5 (4.5-8.0); UROBILINOGEN 0.2 E.U./dl (0.0-1.0)
[2020-09-08 01:23] LABS: BACTERIA 1+; EPITHELIAL CELLS 16-20; YEAST TRACE
[2020-09-08 06:14] LABS: HEMATOCRIT 40.5 % (37.0-47.0); MEAN CELL VOLUME 89.6 fl (81.0-99.0); MEAN CORPUSCULAR HGB 29.2 pg (27.0-31.0); MEAN CORPUSCULAR HGB CONC 32.6 g/dl (33.0-37.0); MEAN PLATELET VOLUME 10.6 fl (9.6-12.3); PLATELET COUNT AUTOMATED 197 10*3/uL (130-400); RED BLOOD COUNT 4.52 10*6/uL (4.10-5.10); RED CELL DISTRI WIDTH 14.5 % (0-14.5); WHITE BLOOD COUNT 12.4 10*3/uL (4.8-10.8)
[2020-09-08 06:32] LABS: BUN 17 mg/dl (7-24); CHLORIDE 105 mmol/L (98-107); CREATININE 1.02 mg/dL (0.55-1.02); POTASSIUM 3.7 mmol/L (3.5-5.1); SODIUM 141 mmol/L (136-145)
[2020-09-08 07:34] LABS: PLATELET SUFFICIENCY NORMAL (NORMAL); TOTAL CELLS COUNTED 100 #CELLS
[2020-09-08 08:00] VITALS: BP 124/75
[2020-09-08 12:00] VITALS: BP 103/55
[2020-09-08 16:00] VITALS: BP 110/52
[2020-09-08 20:00] VITALS: BP 127/56
[2020-09-09 08:00] VITALS: BP 120/81
[2020-09-09 12:00] VITALS: BP 130/48
[2020-09-09 16:00] VITALS: BP 111/62
[2020-09-09 20:00] VITALS: BP 120/58
[2020-09-10] VITALS: BP 127/80
[2020-09-10 07:48] VITALS: BP 120/80
[2020-09-10 12:00] VITALS: BP 129/75
[2020-09-10 16:00] VITALS: BP 126/65
[2020-09-10 20:00] VITALS: BP 127/49
[2020-09-11] VITALS: BP 123/51
[2020-09-11 06:44] LABS: BASO % 0.3 % (0.0-1.0); EOS # 0.2 10*3/uL (0.0-0.4); EOS % 1.2 % (1.0-4.0); LYMPH # 2.3 10*3/uL (1.3-4.4); LYMPH % 18.4 % (27.0-41.0); MEAN CELL VOLUME 89.7 fl (81.0-99.0); MEAN CORPUSCULAR HGB 29.2 pg (27.0-31.0); MEAN CORPUSCULAR HGB CONC 32.6 g/dl (33.0-37.0); MEAN PLATELET VOLUME 10.6 fl (9.6-12.3); MONO # 0.9 10*3/uL (0.1-1.0); MONO % 6.9 % (3.0-9.0); NEUT % 71.8 % (47.0-73.0); PLATELET COUNT AUTOMATED 171 10*3/uL (130-400); RED BLOOD COUNT 4.35 10*6/uL (4.10-5.10); RED CELL DISTRI WIDTH 14.6 % (0-14.5); WHITE BLOOD COUNT 12.5 10*3/uL (4.8-10.8)
[2020-09-11 06:55] LABS: CHLORIDE 108 mmol/L (98-107); POTASSIUM 4.1 mmol/L (3.5-5.1); SODIUM 142 mmol/L (136-145)
[2020-09-11 07:04] LABS: BUN 12 mg/dl (7-24); CREATININE 0.97 mg/dL (0.55-1.02)
[2020-09-11 08:00] VITALS: BP 129/70
[2020-09-11 12:00] VITALS: BP 125/53
[2020-09-11] MEDS ORDERED: AUGMENTIN 875875 MG PO (12:45)
[2020-09-11 16:00] VITALS: BP 135/73
[2020-09-11 20:00] VITALS: BP 117/59
[2020-09-12] VITALS: BP 113/50
[2020-09-12 08:00] VITALS: BP 117/69
[2020-09-12 12:00] VITALS: BP 110/60; BP 130/70
[2020-09-12 16:00] VITALS: BP 127/97
== END 2020-09-12 18:54 | disposition home health service (06) | DRG 690 ==
LOC: ED 19:31 → 4E 09-07 00:47 → EDHOLD 09-07 00:47 → 4E 09-07 01:28
PROVIDERS: Emergency Medicine; Internal Medicine; Internal Medicine Nephrology; Student in an Organized Health Care Education/Training Program; ADMIT Internal Medicine; ATTEND Internal Medicine
DX: N39.0 Urinary tract infection, site not specified (principal); E44.0 Moderate protein-calorie malnutrition; J02.9 Acute pharyngitis, unspecified; K21.9 Gastro-esophageal reflux disease without esophagitis; J30.9 Allergic rhinitis, unspecified; B95.2 Enterococcus as the cause of diseases classified elsewhere; R55 Syncope and collapse; R06.02 Shortness of breath; I12.9 Hypertensive chronic kidney disease with stage 1 through stage 4 chronic kidney disease, or unspecified chronic kidney disease; N18.30 Chronic kidney disease, stage 3 unspecified; J45.20 Mild intermittent asthma, uncomplicated; F32.9 Major depressive disorder, single episode, unspecified; J44.9 Chronic obstructive pulmonary disease, unspecified; E66.01 Morbid (severe) obesity due to excess calories; K58.0 Irritable bowel syndrome with diarrhea; G89.29 Other chronic pain; M54.9 Dorsalgia, unspecified; Z20.822 Contact with and (suspected) exposure to COVID-19; Z88.2 Allergy status to sulfonamides; Z88.0 Allergy status to penicillin; Z88.6 Allergy status to analgesic agent; Z88.8 Allergy status to other drugs, medicaments and biological substances; Z91.040 Latex allergy status; Z87.442 Personal history of urinary calculi; Z90.49 Acquired absence of other specified parts of digestive tract; Z98.891 History of uterine scar from previous surgery; Z98.84 Bariatric surgery status; Z98.51 Tubal ligation status; Z87.891 Personal history of nicotine dependence; Z83.3 Family history of diabetes mellitus; Z81.1 Family history of alcohol abuse and dependence; Z82.49 Family history of ischemic heart disease and other diseases of the circulatory system; Z83.6 Family history of other diseases of the respiratory system; Z79.899 Other long term (current) drug therapy; Z68.39 Body mass index [BMI] 39.0-39.9, adult

== ENCOUNTER → 2020-10-26 | Outpatient (CLI) | payer MEDICARE ==
[~2020-10-26] MED LIST changes: +AUGMENTIN 875875 MG PO
== END | disposition home or self-care (01) ==
LOC: US 01:27
PROVIDERS: ATTEND Internal Medicine
DX: M79.89 Other specified soft tissue disorders (principal)

== ENCOUNTER 2020-12-10 15:23 | Observation (INO) | payer MEDICARE ==
[~2020-12-10] VITALS: Ht 167.6 cm; Wt 120.2 kg
[2020-12-10 16:17] VITALS: BP 135/77
[2020-12-10 16:41] LABS: BASO % 0.3 % (0.0-1.0); EOS # 0.3 10*3/uL (0.0-0.4); EOS % 2.5 % (1.0-4.0); HEMATOCRIT 39.9 % (37.0-47.0); LYMPH # 2.1 10*3/uL (1.3-4.4); LYMPH % 18.4 % (27.0-41.0); MEAN CELL VOLUME 93.9 fl (81.0-99.0); MEAN CORPUSCULAR HGB 29.9 pg (27.0-31.0); MEAN CORPUSCULAR HGB CONC 31.8 g/dl (33.0-37.0); MEAN PLATELET VOLUME 10.3 fl (9.6-12.3); MONO # 0.7 10*3/uL (0.1-1.0); MONO % 5.8 % (3.0-9.0); NEUT # 8.2 10*3/uL (2.3-7.9); NEUT % 72.6 % (47.0-73.0); PLATELET COUNT AUTOMATED 216 10*3/uL (130-400); RED BLOOD COUNT 4.25 10*6/uL (4.10-5.10); RED CELL DISTRI WIDTH 14.5 % (0-14.5); WHITE BLOOD COUNT 11.3 10*3/uL (4.8-10.8)
[2020-12-10 17:07] LABS: ALBUMIN 3.1 gm/dl (3.1-4.5); CREATININE 1.12 mg/dL (0.55-1.02); POTASSIUM 4.6 mmol/L (3.5-5.1); TOTAL PROTEIN 6.7 gm/dL (6.4-8.2)
[2020-12-10 18:49] VITALS: BP 125/80
[2020-12-10 20:15] VITALS: BP 150/69
[2020-12-10] MEDS ORDERED: LORATADINE-D 11 EACH PO (22:56)
[2020-12-10] MEDS ORDERED: NORTRIPTYLINE H25 M1 PO (22:59)
[2020-12-11] VITALS: BP 144/65
[2020-12-11] MEDS ORDERED: TRINTELLIX10 MG PO (03:29)
[2020-12-11 06:09] LABS: BASO % 0.4 % (0.0-1.0); EOS # 0.3 10*3/uL (0.0-0.4); EOS % 3.5 % (1.0-4.0); HEMATOCRIT 35.8 % (37.0-47.0); LYMPH # 1.9 10*3/uL (1.3-4.4); LYMPH % 25.3 % (27.0-41.0); MEAN CELL VOLUME 93.7 fl (81.0-99.0); MEAN CORPUSCULAR HGB 29.8 pg (27.0-31.0); MEAN CORPUSCULAR HGB CONC 31.8 g/dl (33.0-37.0); MEAN PLATELET VOLUME 10.2 fl (9.6-12.3); MONO # 0.5 10*3/uL (0.1-1.0); MONO % 7.1 % (3.0-9.0); NEUT # 4.9 10*3/uL (2.3-7.9); NEUT % 63.4 % (47.0-73.0); PLATELET COUNT AUTOMATED 182 10*3/uL (130-400); RED BLOOD COUNT 3.82 10*6/uL (4.10-5.10); RED CELL DISTRI WIDTH 14.4 % (0-14.5); WHITE BLOOD COUNT 7.6 10*3/uL (4.8-10.8)
[2020-12-11 06:24] LABS: ALBUMIN 2.5 gm/dl (3.1-4.5); BUN 10 mg/dl (7-24); CHLORIDE 109 mmol/L (98-107); POTASSIUM 4.2 mmol/L (3.5-5.1); SODIUM 141 mmol/L (136-145)
[2020-12-11 06:28] LABS: ALKALINE PHOSPHATASE 79 U/L (45-117); CREATININE 0.86 mg/dL (0.55-1.02); SGOT/AST 12 IU/L (3-35); SGPT/ALT 12 U/L (12-78); TOTAL PROTEIN 5.6 gm/dL (6.4-8.2)
[2020-12-11 08:00] VITALS: BP 115/64
[2020-12-11 12:00] VITALS: BP 148/82
[2020-12-11 16:00] VITALS: BP 138/83
[2020-12-11 20:00] VITALS: BP 118/66
[2020-12-12] VITALS: BP 125/76
[2020-12-12 08:00] VITALS: BP 115/67
[2020-12-12 12:00] VITALS: BP 136/70
[2020-12-12 16:00] VITALS: BP 125/69
== END 2020-12-12 19:00 | disposition home or self-care (01) ==
LOC: ED 15:23 → EDHOLD 17:47 → 4E 17:47
PROVIDERS: Internal Medicine; Student in an Organized Health Care Education/Training Program; ADMIT Internal Medicine; ATTEND Internal Medicine
DX: R11.2 Nausea with vomiting, unspecified (principal); R73.9 Hyperglycemia, unspecified; E83.41 Hypermagnesemia; R10.9 Unspecified abdominal pain; D72.829 Elevated white blood cell count, unspecified; D72.820 Lymphocytosis (symptomatic); D72.9 Disorder of white blood cells, unspecified; E46 Unspecified protein-calorie malnutrition; R06.89 Other abnormalities of breathing; J44.9 Chronic obstructive pulmonary disease, unspecified; I48.91 Unspecified atrial fibrillation; Z78.9 Other specified health status; Z79.01 Long term (current) use of anticoagulants; Z79.899 Other long term (current) drug therapy

== ENCOUNTER 2020-12-22 18:25 | Inpatient (IN) | payer MEDICARE ==
[~2020-12-22] VITALS: Ht 167.6 cm; Wt 41.3 kg
[~2020-12-22 18:25] MED LIST changes: +LORATADINE-D 11 EACH PO; +NORTRIPTYLINE H25 M1 PO; +TRINTELLIX10 MG PO
[2020-12-22 18:31] VITALS: BP 129/77
[2020-12-22 19:53] LABS: BASO % 0.2 % (0.0-1.0); HEMATOCRIT 40.6 % (37.0-47.0); LYMPH % 25.6 % (27.0-41.0); MEAN CELL VOLUME 93.1 fl (81.0-99.0); MEAN CORPUSCULAR HGB 29.6 pg (27.0-31.0); MEAN CORPUSCULAR HGB CONC 31.8 g/dl (33.0-37.0); MEAN PLATELET VOLUME 9.7 fl (9.6-12.3); MONO # 0.3 10*3/uL (0.1-1.0); MONO % 7.9 % (3.0-9.0); NEUT # 2.6 10*3/uL (2.3-7.9); NEUT % 65.1 % (47.0-73.0); PLATELET COUNT AUTOMATED 149 10*3/uL (130-400); RED BLOOD COUNT 4.36 10*6/uL (4.10-5.10); RED CELL DISTRI WIDTH 14.6 % (0-14.5); WHITE BLOOD COUNT 4.1 10*3/uL (4.8-10.8)
[2020-12-22 20:10] LABS: BILIRUBIN Negative (Negative); BLOOD 1+ (Negative); CLARITY Turbid (Clear); COLOR Yellow (Yellow); GLUCOSE Negative (Negative); KETONE Trace (Negative); LEUKO ESTERASE 3+ (Negative); NITRITE Positive (Negative); PH 7.5 (4.5-8.0)
[2020-12-22 20:11] LABS: BUN 8 mg/dl (7-24); CHLORIDE 108 mmol/L (98-107); CREATININE 0.99 mg/dL (0.55-1.02); POTASSIUM 3.9 mmol/L (3.5-5.1); SGOT/AST 45 IU/L (3-35); SGPT/ALT 28 U/L (12-78); SODIUM 142 mmol/L (136-145); TOTAL PROTEIN 6.4 gm/dL (6.4-8.2)
[2020-12-22 20:13] LABS: ALKALINE PHOSPHATASE 80 U/L (45-117)
[2020-12-22 20:15] LABS: TROPONIN I < 0.015 ng/ml (<0.045)
[2020-12-22 20:18] LABS: WBC TNTC wbc/hpf (0-5)
[2020-12-22 21:35] VITALS: BP 128/60
[2020-12-22 22:50] VITALS: BP 118/62
[2020-12-22 23:15] VITALS: BP 148/76
[2020-12-22] MEDS ORDERED: MELATONIN5 M7 PO (23:37)
[2020-12-22] MEDS ORDERED: NAPROXEN500 MG PO (23:38)
[2020-12-23 06:35] LABS: BASO % 0.2 % (0.0-1.0); HEMATOCRIT 37.9 % (37.0-47.0); LYMPH # 1.1 10*3/uL (1.3-4.4); LYMPH % 25.7 % (27.0-41.0); MEAN CELL VOLUME 93.1 fl (81.0-99.0); MEAN CORPUSCULAR HGB 29.5 pg (27.0-31.0); MEAN CORPUSCULAR HGB CONC 31.7 g/dl (33.0-37.0); MEAN PLATELET VOLUME 10.1 fl (9.6-12.3); MONO # 0.4 10*3/uL (0.1-1.0); NEUT # 2.6 10*3/uL (2.3-7.9); NEUT % 63.6 % (47.0-73.0); PLATELET COUNT AUTOMATED 135 10*3/uL (130-400); RED BLOOD COUNT 4.07 10*6/uL (4.10-5.10); RED CELL DISTRI WIDTH 14.6 % (0-14.5); WHITE BLOOD COUNT 4.1 10*3/uL (4.8-10.8)
[2020-12-23 06:46] LABS: BUN 9 mg/dl (7-24); CHLORIDE 109 mmol/L (98-107); POTASSIUM 3.9 mmol/L (3.5-5.1); SODIUM 142 mmol/L (136-145)
[2020-12-23 06:59] LABS: CREATININE 0.98 mg/dL (0.55-1.02); FREE T4 1.07 ng/dl (0.76-1.46)
[2020-12-23 08:00] VITALS: BP 115/62
[2020-12-23 12:00] VITALS: BP 120/66
[2020-12-23 16:00] VITALS: BP 128/69
[2020-12-23 20:00] VITALS: BP 135/88
[2020-12-24] VITALS: BP 131/63
[2020-12-24 08:00] VITALS: BP 134/77
[2020-12-24 12:00] VITALS: BP 139/66
[2020-12-24 14:14] LABS: BASO % 0.2 % (0.0-1.0); EOS # 0.1 10*3/uL (0.0-0.4); EOS % 1.5 % (1.0-4.0); HEMATOCRIT 37.3 % (37.0-47.0); LYMPH % 23.7 % (27.0-41.0); MEAN CELL VOLUME 91.6 fl (81.0-99.0); MEAN CORPUSCULAR HGB CONC 31.6 g/dl (33.0-37.0); MEAN PLATELET VOLUME 10.2 fl (9.6-12.3); MONO # 0.2 10*3/uL (0.1-1.0); MONO % 5.6 % (3.0-9.0); NEUT # 2.8 10*3/uL (2.3-7.9); NEUT % 68.5 % (47.0-73.0); PLATELET COUNT AUTOMATED 125 10*3/uL (130-400); RED BLOOD COUNT 4.07 10*6/uL (4.10-5.10); RED CELL DISTRI WIDTH 14.3 % (0-14.5); WHITE BLOOD COUNT 4.1 10*3/uL (4.8-10.8)
[2020-12-24 16:00] VITALS: BP 118/53
[2020-12-24 16:35] LABS: ALBUMIN 2.7 gm/dl (3.1-4.5); ALKALINE PHOSPHATASE 79 U/L (45-117); BUN 8 mg/dl (7-24); CHLORIDE 111 mmol/L (98-107); CREATININE 0.82 mg/dL (0.55-1.02); POTASSIUM 3.6 mmol/L (3.5-5.1); SGOT/AST 33 IU/L (3-35); SGPT/ALT 21 U/L (12-78); SODIUM 142 mmol/L (136-145); TOTAL PROTEIN 5.8 gm/dL (6.4-8.2)
[2020-12-24 20:00] VITALS: BP 135/69
[2020-12-25] VITALS: BP 128/70
[2020-12-25 08:00] VITALS: BP 141/73
[2020-12-25 11:07] LABS: EOS # 0.1 10*3/uL (0.0-0.4); EOS % 2.2 % (1.0-4.0); HEMATOCRIT 37.3 % (37.0-47.0); LYMPH % 22.8 % (27.0-41.0); MEAN CELL VOLUME 90.8 fl (81.0-99.0); MEAN CORPUSCULAR HGB 29.4 pg (27.0-31.0); MEAN CORPUSCULAR HGB CONC 32.4 g/dl (33.0-37.0); MEAN PLATELET VOLUME 10.5 fl (9.6-12.3); MONO # 0.3 10*3/uL (0.1-1.0); NEUT # 3.1 10*3/uL (2.3-7.9); NEUT % 68.8 % (47.0-73.0); PLATELET COUNT AUTOMATED 152 10*3/uL (130-400); RED BLOOD COUNT 4.11 10*6/uL (4.10-5.10); RED CELL DISTRI WIDTH 14.3 % (0-14.5); WHITE BLOOD COUNT 4.5 10*3/uL (4.8-10.8)
[2020-12-25 11:44] LABS: BUN 6 mg/dl (7-24); CHLORIDE 109 mmol/L (98-107); CREATININE 0.75 mg/dL (0.55-1.02); POTASSIUM 3.9 mmol/L (3.5-5.1); SODIUM 141 mmol/L (136-145)
[2020-12-25 12:00] VITALS: BP 137/63
[2020-12-25] MEDS ORDERED: CIPROFLOXACIN500 M4 PO ×2 (15:12)
== END 2020-12-25 16:41 | disposition home health service (06) | DRG 690 ==
LOC: ED 18:25 → EDHOLD 21:39 → 4E 21:39
PROVIDERS: Emergency Medicine; Podiatrist Foot & Ankle Surgery; ADMIT Internal Medicine; ATTEND Internal Medicine
DX: N39.0 Urinary tract infection, site not specified (principal); I47.1 Supraventricular tachycardia; Z68.41 Body mass index [BMI] 40.0-44.9, adult; K21.9 Gastro-esophageal reflux disease without esophagitis; J44.9 Chronic obstructive pulmonary disease, unspecified; E66.01 Morbid (severe) obesity due to excess calories; F32.9 Major depressive disorder, single episode, unspecified; I10 Essential (primary) hypertension; N26.1 Atrophy of kidney (terminal); M54.9 Dorsalgia, unspecified; K58.9 Irritable bowel syndrome, unspecified; B96.20 Unspecified Escherichia coli [E. coli] as the cause of diseases classified elsewhere; J45.909 Unspecified asthma, uncomplicated; Z88.5 Allergy status to narcotic agent; Z88.0 Allergy status to penicillin; Z98.84 Bariatric surgery status; Z87.442 Personal history of urinary calculi; Z91.040 Latex allergy status; Z88.2 Allergy status to sulfonamides; Z88.8 Allergy status to other drugs, medicaments and biological substances; Z90.49 Acquired absence of other specified parts of digestive tract; Z98.891 History of uterine scar from previous surgery; Z79.1 Long term (current) use of non-steroidal anti-inflammatories (NSAID); Z79.899 Other long term (current) drug therapy; Z87.891 Personal history of nicotine dependence

== ENCOUNTER 2020-12-28 12:03 | Emergency (ER) | payer MEDICARE ==
[~2020-12-28] VITALS: Ht 165.1 cm; Wt 118.4 kg
[~2020-12-28 12:03] MED LIST changes: +MELATONIN5 M7 PO; +NAPROXEN500 MG PO
[2020-12-28 13:16] LABS: BASO % 0.4 % (0.0-1.0); EOS # 0.1 10*3/uL (0.0-0.4); EOS % 1.3 % (1.0-4.0); HEMATOCRIT 37.8 % (37.0-47.0); LYMPH # 1.5 10*3/uL (1.3-4.4); LYMPH % 17.5 % (27.0-41.0); MEAN CELL VOLUME 86.3 fl (81.0-99.0); MEAN CORPUSCULAR HGB CONC 33.6 g/dl (33.0-37.0); MEAN PLATELET VOLUME 10.1 fl (9.6-12.3); MONO # 0.5 10*3/uL (0.1-1.0); MONO % 5.5 % (3.0-9.0); NEUT # 6.3 10*3/uL (2.3-7.9); NEUT % 74.5 % (47.0-73.0); PLATELET COUNT AUTOMATED 261 10*3/uL (130-400); RED BLOOD COUNT 4.38 10*6/uL (4.10-5.10); RED CELL DISTRI WIDTH 13.5 % (0-14.5); WHITE BLOOD COUNT 8.5 10*3/uL (4.8-10.8)
[2020-12-28 13:33] LABS: ALBUMIN 3.1 gm/dl (3.1-4.5); ALKALINE PHOSPHATASE 79 U/L (45-117); BUN 10 mg/dl (7-24); CHLORIDE 108 mmol/L (98-107); CREATININE 0.76 mg/dL (0.55-1.02); LIPASE 87 U/L (73-393); POTASSIUM 4.5 mmol/L (3.5-5.1); SGOT/AST 30 IU/L (3-35); SGPT/ALT 25 U/L (12-78); SODIUM 140 mmol/L (136-145); TOTAL PROTEIN 6.7 gm/dL (6.4-8.2)
[2020-12-28] MEDS ORDERED: FLAGYL500 MG PO ×2 (16:13)
== END 2020-12-28 16:17 | disposition home or self-care (01) ==
LOC: ED 12:03
PROVIDERS: Physician Assistant
DX: R11.2 Nausea with vomiting, unspecified (principal); R19.7 Diarrhea, unspecified; Z88.0 Allergy status to penicillin; Z88.2 Allergy status to sulfonamides; Z91.040 Latex allergy status; Z88.6 Allergy status to analgesic agent; Z79.899 Other long term (current) drug therapy; Z87.891 Personal history of nicotine dependence

== ENCOUNTER 2021-01-05 11:33 | Inpatient (IN) | payer MEDICARE ==
[~2021-01-05] VITALS: Ht 167.6 cm; Wt 115.3 kg
[~2021-01-05 11:33] MED LIST changes: +FLAGYL500 MG PO
[2021-01-05 11:34] VITALS: BP 117/80
[2021-01-05 12:00] LABS: BASO % 0.2 % (0.0-1.0); EOS # 0.1 10*3/uL (0.0-0.4); EOS % 0.3 % (1.0-4.0); HEMATOCRIT 41.7 % (37.0-47.0); LYMPH # 1.2 10*3/uL (1.3-4.4); LYMPH % 6.7 % (27.0-41.0); MEAN CELL VOLUME 89.5 fl (81.0-99.0); MEAN CORPUSCULAR HGB 28.8 pg (27.0-31.0); MEAN CORPUSCULAR HGB CONC 32.1 g/dl (33.0-37.0); MEAN PLATELET VOLUME 11.5 fl (9.6-12.3); MONO % 5.6 % (3.0-9.0); NEUT # 15.8 10*3/uL (2.3-7.9); NEUT % 86.7 % (47.0-73.0); PLATELET COUNT AUTOMATED 281 10*3/uL (130-400); RED BLOOD COUNT 4.66 10*6/uL (4.10-5.10); RED CELL DISTRI WIDTH 14.8 % (0-14.5); WHITE BLOOD COUNT 18.2 10*3/uL (4.8-10.8)
[2021-01-05 12:18] LABS: ALBUMIN 2.9 gm/dl (3.1-4.5); ALKALINE PHOSPHATASE 77 U/L (45-117); BUN 10 mg/dl (7-24); CHLORIDE 105 mmol/L (98-107); CREATININE 1.06 mg/dL (0.55-1.02); SGOT/AST 13 IU/L (3-35); SGPT/ALT 19 U/L (12-78); SODIUM 139 mmol/L (136-145); TOTAL PROTEIN 6.6 gm/dL (6.4-8.2)
[2021-01-05 12:19] LABS: TROPONIN I < 0.015 ng/ml (<0.045)
[2021-01-05 13:00] LABS: BILIRUBIN Negative (Negative); BLOOD Negative (Negative); CLARITY Clear (Clear); COLOR Yellow (Yellow); GLUCOSE Negative (Negative); KETONE Negative (Negative); LEUKO ESTERASE Negative (Negative); NITRITE Negative (Negative); PH 7.5 (4.5-8.0); SPECIFIC GRAVITY 1.015 (1.001-1.030); UROBILINOGEN 0.2 E.U./dl (0.0-1.0)
[2021-01-05 13:08] LABS: BACTERIA TRACE; MUCOUS 1+; RBC 0-2 rbc/hpf (0-2)
[2021-01-05] MEDS ORDERED: ONDANSETRON HYDR4 MG PO (15:40)
[2021-01-05 16:55] VITALS: BP 117/65
[2021-01-05 20:00] VITALS: BP 128/59
[2021-01-06] VITALS: BP 120/50
[2021-01-06 06:41] LABS: ALBUMIN 2.2 gm/dl (3.1-4.5); ALKALINE PHOSPHATASE 63 U/L (45-117); BUN 13 mg/dl (7-24); CHLORIDE 109 mmol/L (98-107); CREATININE 0.78 mg/dL (0.55-1.02); POTASSIUM 3.7 mmol/L (3.5-5.1); SGOT/AST 20 IU/L (3-35); SGPT/ALT 14 U/L (12-78); SODIUM 141 mmol/L (136-145); TOTAL PROTEIN 5.6 gm/dL (6.4-8.2)
[2021-01-06 07:29] LABS: BASO % 0.4 % (0.0-1.0); EOS # 0.2 10*3/uL (0.0-0.4); EOS % 2.9 % (1.0-4.0); HEMATOCRIT 36.5 % (37.0-47.0); LYMPH # 1.4 10*3/uL (1.3-4.4); LYMPH % 16.8 % (27.0-41.0); MEAN CELL VOLUME 91.9 fl (81.0-99.0); MEAN CORPUSCULAR HGB 29.2 pg (27.0-31.0); MEAN CORPUSCULAR HGB CONC 31.8 g/dl (33.0-37.0); MONO # 0.7 10*3/uL (0.1-1.0); MONO % 8.5 % (3.0-9.0); NEUT # 5.9 10*3/uL (2.3-7.9); PLATELET COUNT AUTOMATED 200 10*3/uL (130-400); RED BLOOD COUNT 3.97 10*6/uL (4.10-5.10); RED CELL DISTRI WIDTH 14.9 % (0-14.5); WHITE BLOOD COUNT 8.3 10*3/uL (4.8-10.8)
[2021-01-06 08:00] VITALS: BP 118/63
[2021-01-06 12:00] VITALS: BP 128/66
[2021-01-06 16:00] VITALS: BP 117/76
[2021-01-06 20:00] VITALS: BP 108/49
[2021-01-07] VITALS: BP 112/46
[2021-01-07 08:00] VITALS: BP 108/62
[2021-01-07 12:00] VITALS: BP 126/65
[2021-01-07 14:24] LABS: BASO % 0.4 % (0.0-1.0); EOS # 0.2 10*3/uL (0.0-0.4); EOS % 3.2 % (1.0-4.0); LYMPH # 1.2 10*3/uL (1.3-4.4); LYMPH % 16.3 % (27.0-41.0); MEAN CELL VOLUME 91.6 fl (81.0-99.0); MEAN CORPUSCULAR HGB 29.5 pg (27.0-31.0); MEAN CORPUSCULAR HGB CONC 32.2 g/dl (33.0-37.0); MEAN PLATELET VOLUME 11.7 fl (9.6-12.3); MONO # 0.6 10*3/uL (0.1-1.0); MONO % 7.3 % (3.0-9.0); NEUT # 5.4 10*3/uL (2.3-7.9); NEUT % 72.4 % (47.0-73.0); PLATELET COUNT AUTOMATED 197 10*3/uL (130-400); RED BLOOD COUNT 4.04 10*6/uL (4.10-5.10); RED CELL DISTRI WIDTH 14.9 % (0-14.5); WHITE BLOOD COUNT 7.5 10*3/uL (4.8-10.8)
[2021-01-07 14:41] LABS: BUN 13 mg/dl (7-24); CHLORIDE 111 mmol/L (98-107); CREATININE 0.82 mg/dL (0.55-1.02); POTASSIUM 3.8 mmol/L (3.5-5.1); SODIUM 141 mmol/L (136-145)
[2021-01-07 16:00] VITALS: BP 131/72
[2021-01-07 20:00] VITALS: BP 128/60
[2021-01-08] VITALS: BP 165/83
[2021-01-08 08:00] VITALS: BP 146/69
[2021-01-08 12:00] VITALS: BP 157/81
[2021-01-08 12:19] LABS: BASO % 0.3 % (0.0-1.0); EOS # 0.2 10*3/uL (0.0-0.4); EOS % 2.9 % (1.0-4.0); LYMPH # 1.3 10*3/uL (1.3-4.4); LYMPH % 17.7 % (27.0-41.0); MEAN CELL VOLUME 88.6 fl (81.0-99.0); MEAN CORPUSCULAR HGB 29.1 pg (27.0-31.0); MEAN CORPUSCULAR HGB CONC 32.9 g/dl (33.0-37.0); MEAN PLATELET VOLUME 11.6 fl (9.6-12.3); MONO # 0.5 10*3/uL (0.1-1.0); MONO % 6.8 % (3.0-9.0); NEUT # 5.4 10*3/uL (2.3-7.9); NEUT % 71.9 % (47.0-73.0); PLATELET COUNT AUTOMATED 200 10*3/uL (130-400); RED BLOOD COUNT 3.95 10*6/uL (4.10-5.10); RED CELL DISTRI WIDTH 14.6 % (0-14.5); WHITE BLOOD COUNT 7.5 10*3/uL (4.8-10.8)
[2021-01-08 12:43] LABS: BUN 10 mg/dl (7-24); CHLORIDE 111 mmol/L (98-107); CREATININE 0.79 mg/dL (0.55-1.02); POTASSIUM 3.7 mmol/L (3.5-5.1); SODIUM 142 mmol/L (136-145)
[2021-01-08] MEDS ORDERED: Vibra-Tab100 MG PO (13:08)
[2021-01-08] MEDS ORDERED: FLAGYL500 MG PO (13:08)
[2021-01-09 14:08] LABS: MYCOPLASMA PNEUMONIAE IGG <100 U/mL (0-99); MYCOPLASMA PNEUMONIAE IGM <770 U/mL (0-769)
== END 2021-01-08 15:45 | disposition home or self-care (01) | DRG 871 ==
LOC: ED 11:33 → EDHOLD 13:57 → 4E 13:57
PROVIDERS: Emergency Medicine; Podiatrist Foot & Ankle Surgery; ADMIT Internal Medicine; ATTEND Internal Medicine
DX: A41.9 Sepsis, unspecified organism (principal); J69.0 Pneumonitis due to inhalation of food and vomit; J44.1 Chronic obstructive pulmonary disease with (acute) exacerbation; I47.1 Supraventricular tachycardia; Z68.41 Body mass index [BMI] 40.0-44.9, adult; J20.9 Acute bronchitis, unspecified; I95.1 Orthostatic hypotension; E86.0 Dehydration; K58.9 Irritable bowel syndrome, unspecified; M54.9 Dorsalgia, unspecified; G89.29 Other chronic pain; F32.9 Major depressive disorder, single episode, unspecified; E66.01 Morbid (severe) obesity due to excess calories; W18.30XA Fall on same level, unspecified, initial encounter; N18.30 Chronic kidney disease, stage 3 unspecified; I12.9 Hypertensive chronic kidney disease with stage 1 through stage 4 chronic kidney disease, or unspecified chronic kidney disease; Z90.49 Acquired absence of other specified parts of digestive tract; Z98.891 History of uterine scar from previous surgery; Z98.51 Tubal ligation status; Z87.891 Personal history of nicotine dependence; Y93.89 Activity, other specified; Y92.098 Other place in other non-institutional residence as the place of occurrence of the external cause; Z87.442 Personal history of urinary calculi; Y99.8 Other external cause status; Z82.49 Family history of ischemic heart disease and other diseases of the circulatory system; Z83.3 Family history of diabetes mellitus; Z88.0 Allergy status to penicillin; Z88.2 Allergy status to sulfonamides; Z91.040 Latex allergy status; Z79.1 Long term (current) use of non-steroidal anti-inflammatories (NSAID); Z79.899 Other long term (current) drug therapy

== ENCOUNTER 2021-01-18 11:45 | Inpatient (IN) | payer MEDICARE ==
[~2021-01-18] VITALS: Ht 167.6 cm; Wt 120.2 kg
[~2021-01-18 11:45] MED LIST changes: +ONDANSETRON HYDR4 MG PO; +Vibra-Tab100 MG PO
[2021-01-18 12:26] VITALS: BP 131/65
[2021-01-18 12:30] LABS: BASO # 0.1 10*3/uL (0.0-0.1); BASO % 0.6 % (0.0-1.0); EOS # 0.3 10*3/uL (0.0-0.4); HEMATOCRIT 40.2 % (37.0-47.0); LYMPH # 1.9 10*3/uL (1.3-4.4); MEAN CELL VOLUME 93.7 fl (81.0-99.0); MEAN CORPUSCULAR HGB 29.1 pg (27.0-31.0); MEAN CORPUSCULAR HGB CONC 31.1 g/dl (33.0-37.0); MEAN PLATELET VOLUME 11.1 fl (9.6-12.3); MONO # 0.7 10*3/uL (0.1-1.0); MONO % 6.7 % (3.0-9.0); NEUT % 70.3 % (47.0-73.0); PLATELET COUNT AUTOMATED 205 10*3/uL (130-400); RED BLOOD COUNT 4.29 10*6/uL (4.10-5.10); RED CELL DISTRI WIDTH 14.9 % (0-14.5); WHITE BLOOD COUNT 9.9 10*3/uL (4.8-10.8)
[2021-01-18 12:50] LABS: ALKALINE PHOSPHATASE 89 U/L (45-117); BUN 8 mg/dl (7-24); CHLORIDE 103 mmol/L (98-107); CREATININE 0.89 mg/dL (0.55-1.02); POTASSIUM 4.8 mmol/L (3.5-5.1); SGOT/AST 12 IU/L (3-35); SGPT/ALT 12 U/L (12-78); SODIUM 139 mmol/L (136-145); TOTAL PROTEIN 6.5 gm/dL (6.4-8.2)
[2021-01-18 12:53] LABS: TROPONIN I < 0.015 ng/ml (<0.045)
[2021-01-18 14:21] VITALS: BP 132/59
[2021-01-19 02:57] VITALS: BP 124/62
[2021-01-19 06:13] LABS: BUN 9 mg/dl (7-24); CHLORIDE 105 mmol/L (98-107); CREATININE 0.74 mg/dL (0.55-1.02); POTASSIUM 4.7 mmol/L (3.5-5.1); SODIUM 140 mmol/L (136-145)
[2021-01-19 06:15] LABS: BASO # 0.1 10*3/uL (0.0-0.1); BASO % 0.5 % (0.0-1.0); EOS # 0.4 10*3/uL (0.0-0.4); EOS % 3.9 % (1.0-4.0); HEMATOCRIT 38.9 % (37.0-47.0); LYMPH # 2.1 10*3/uL (1.3-4.4); LYMPH % 22.7 % (27.0-41.0); MEAN CORPUSCULAR HGB 29.2 pg (27.0-31.0); MEAN CORPUSCULAR HGB CONC 31.1 g/dl (33.0-37.0); MEAN PLATELET VOLUME 11.5 fl (9.6-12.3); MONO # 0.7 10*3/uL (0.1-1.0); MONO % 7.1 % (3.0-9.0); NEUT % 65.3 % (47.0-73.0); PLATELET COUNT AUTOMATED 181 10*3/uL (130-400); RED BLOOD COUNT 4.14 10*6/uL (4.10-5.10); WHITE BLOOD COUNT 9.3 10*3/uL (4.8-10.8)
[2021-01-19 08:00] VITALS: BP 129/70
== END 2021-01-19 15:18 | disposition home or self-care (01) | DRG 313 ==
LOC: ED 11:45 → EDHOLD 13:32
PROVIDERS: Emergency Medicine; Podiatrist Foot & Ankle Surgery; ADMIT Internal Medicine; ATTEND Internal Medicine
DX: R07.89 Other chest pain (principal); I47.1 Supraventricular tachycardia; E44.0 Moderate protein-calorie malnutrition; N18.4 Chronic kidney disease, stage 4 (severe); Z68.41 Body mass index [BMI] 40.0-44.9, adult; I12.9 Hypertensive chronic kidney disease with stage 1 through stage 4 chronic kidney disease, or unspecified chronic kidney disease; E11.65 Type 2 diabetes mellitus with hyperglycemia; E11.22 Type 2 diabetes mellitus with diabetic chronic kidney disease; J45.909 Unspecified asthma, uncomplicated; K21.9 Gastro-esophageal reflux disease without esophagitis; G89.29 Other chronic pain; M54.9 Dorsalgia, unspecified; N18.30 Chronic kidney disease, stage 3 unspecified; F32.9 Major depressive disorder, single episode, unspecified; K58.9 Irritable bowel syndrome, unspecified; J44.9 Chronic obstructive pulmonary disease, unspecified; D72.810 Lymphocytopenia; Z87.442 Personal history of urinary calculi; Z90.49 Acquired absence of other specified parts of digestive tract; Z98.891 History of uterine scar from previous surgery; Z98.51 Tubal ligation status; Z87.891 Personal history of nicotine dependence; Z83.3 Family history of diabetes mellitus; Z82.49 Family history of ischemic heart disease and other diseases of the circulatory system; Z88.0 Allergy status to penicillin; Z88.2 Allergy status to sulfonamides; Z91.040 Latex allergy status; Z88.6 Allergy status to analgesic agent; Z88.5 Allergy status to narcotic agent; Z79.1 Long term (current) use of non-steroidal anti-inflammatories (NSAID); Z79.899 Other long term (current) drug therapy

== ENCOUNTER → 2021-02-15 | Outpatient (CLI) | payer MEDICARE | END | disposition home or self-care (01) | LOC: LAB 14:36 → US 15:00 | PROVIDERS: ATTEND Internal Medicine | DX: M79.89 Other specified soft tissue disorders (principal) ==

== ENCOUNTER → 2021-02-19 | Outpatient (CLI) | payer MEDICARE | END | disposition home or self-care (01) | LOC: CARD 00:01 | PROVIDERS: ATTEND Internal Medicine | DX: R07.2 Precordial pain (principal) ==

== ENCOUNTER 2022-01-01 22:45 | Emergency (ER) | payer OTHER ==
[~2022-01-01] VITALS: Ht 167.6 cm; Wt 106.3 kg
[~2022-01-01 22:45] MED LIST changes: +ALLOPURINOL100 MG PO; +MEMANTINE HCL5 MG PO; +MEROPENEM-500 MG/50 IV; +NITROFURANTOIN100 M9 PO; +POTASSIUM CITR10 ME1 PO; +VITAMIN D350 MC2 PO
[2022-01-01 23:04] LABS: HEMATOCRIT 34.9 % (37.0-47.0); MEAN CELL VOLUME 85.1 fl (81.0-99.0); MEAN CORPUSCULAR HGB 24.4 pg (27.0-31.0); MEAN CORPUSCULAR HGB CONC 28.7 g/dl (33.0-37.0); MEAN PLATELET VOLUME 10.4 fl (9.6-12.3); PLATELET COUNT AUTOMATED 701 10*3/uL (130-400); RED CELL DISTRI WIDTH 21.3 % (0-14.5); WHITE BLOOD COUNT 21.2 10*3/uL (4.8-10.8)
[2022-01-01 23:07] LABS: MANUAL DIFF REFLEX YES
[2022-01-01 23:17] LABS: ACT PARTIAL THROMBO TIME 26.6 SECONDS (20.0-32.1)
[2022-01-01 23:20] LABS: ALKALINE PHOSPHATASE 122 U/L (45-117); BUN 11 mg/dl (7-24); CHLORIDE 101 mmol/L (98-107); CREATININE 1.01 mg/dL (0.55-1.02); POTASSIUM 3.5 mmol/L (3.5-5.1); SGOT/AST 30 IU/L (3-35); SGPT/ALT 14 U/L (12-78); SODIUM 138 mmol/L (136-145); TOTAL PROTEIN 6.9 gm/dL (6.4-8.2)
[2022-01-01 23:31] LABS: BASOPHILS 1 % (0-1); PLATELET SUFFICIENCY HIGH (NORMAL); TOTAL CELLS COUNTED 100 #CELLS
[2022-01-02] MEDS ORDERED: MAPAP EXTRA ST500 MG PO (00:34)
[2022-01-02] MEDS ORDERED: CIPRO500 MG PO (00:35)
[2022-01-02 00:39] LABS: BILIRUBIN Negative (Negative); BLOOD 3+ (Negative); CLARITY Clear (Clear); COLOR Yellow (Yellow); GLUCOSE Negative (Negative); KETONE Negative (Negative); LEUKO ESTERASE Negative (Negative); NITRITE Negative (Negative); UROBILINOGEN 0.2 E.U./dl (0.0-1.0)
[2022-01-02] MEDS ORDERED: NEURONTIN800 MG PO (00:39)
[2022-01-02] MEDS ORDERED: ONDANSETRON HYDR4 MG PO (00:46)
[2022-01-02] MEDS ORDERED: DULCOLAX10 M1 R (00:49)
[2022-01-02] MEDS ORDERED: FLEET ENEMA EX230 M1 R (00:50)
[2022-01-02 00:52] LABS: RBC 41-50 rbc/hpf (0-2)
== END 2022-01-02 02:38 | disposition home or self-care (01) ==
LOC: ED 22:45
PROVIDERS: Emergency Medicine
DX: R07.89 Other chest pain (principal); R00.0 Tachycardia, unspecified; J44.9 Chronic obstructive pulmonary disease, unspecified; F41.9 Anxiety disorder, unspecified; Z88.0 Allergy status to penicillin; Z88.2 Allergy status to sulfonamides; Z91.040 Latex allergy status; Z88.6 Allergy status to analgesic agent; Z79.899 Other long term (current) drug therapy; Z79.2 Long term (current) use of antibiotics; Z98.890 Other specified postprocedural states; Z90.49 Acquired absence of other specified parts of digestive tract; Z98.84 Bariatric surgery status; Z87.442 Personal history of urinary calculi; Z87.891 Personal history of nicotine dependence

== ENCOUNTER 2022-01-14 11:01 | Inpatient (IN) | payer OTHER ==
[~2022-01-14] VITALS: Ht 167.6 cm; Wt 0.0 kg
[~2022-01-14 11:01] MED LIST changes: +DULCOLAX10 M1 R; +FLEET ENEMA EX230 M1 R; +MAPAP EXTRA ST500 MG PO; +NEURONTIN800 MG PO
[2022-01-14 11:06] VITALS: BP 121/71
[2022-01-14 11:35] LABS: HEMATOCRIT 38.3 % (37.0-47.0); MEAN CELL VOLUME 81.5 fl (81.0-99.0); MEAN CORPUSCULAR HGB 24.9 pg (27.0-31.0); MEAN CORPUSCULAR HGB CONC 30.5 g/dl (33.0-37.0); MEAN PLATELET VOLUME 10.5 fl (9.6-12.3); PLATELET COUNT AUTOMATED 660 10*3/uL (130-400); RED CELL DISTRI WIDTH 22.5 % (0-14.5); WHITE BLOOD COUNT 19.2 10*3/uL (4.8-10.8)
[2022-01-14 11:36] LABS: MANUAL DIFF REFLEX YES
[2022-01-14 11:53] LABS: ALKALINE PHOSPHATASE 114 U/L (45-117); BUN 14 mg/dl (7-24); CHLORIDE 105 mmol/L (98-107); CREATININE 0.99 mg/dL (0.55-1.02); LIPASE 103 U/L (73-393); POTASSIUM 3.2 mmol/L (3.5-5.1); SGOT/AST 22 IU/L (3-35); SGPT/ALT 11 U/L (12-78); SODIUM 141 mmol/L (136-145); TOTAL PROTEIN 7.7 gm/dL (6.4-8.2)
[2022-01-14 11:57] LABS: BASOPHILS 1 % (0-1); PLATELET SUFFICIENCY HIGH (NORMAL); TARGET CELLS FEW; TOTAL CELLS COUNTED 100 #CELLS
[2022-01-14 12:00] VITALS: BP 117/62
[2022-01-14 13:44] LABS: BILIRUBIN Negative (Negative); BLOOD 2+ (Negative); CLARITY Turbid (Clear); COLOR Dark Yellow (Yellow); GLUCOSE Negative (Negative); KETONE Trace (Negative); LEUKO ESTERASE 3+ (Negative); NITRITE Positive (Negative); SPECIFIC GRAVITY 1.015 (1.001-1.030)
[2022-01-14 14:03] LABS: BACTERIA 4+; RBC 21-30 rbc/hpf (0-2); WBC TNTC wbc/hpf (0-5); YEAST 3+
[2022-01-14 16:00] VITALS: BP 114/60
[2022-01-14] MEDS ORDERED: CITRACAL-D3 201 EACH PO (17:05)
[2022-01-14] MEDS ORDERED: PANTOPRAZOLE SO20 MG PO (17:15)
[2022-01-14] MEDS ORDERED: PHENERGAN25 MG/1 ML IM (17:18)
[2022-01-14] MEDS ORDERED: PHENERGAN25 M3 PO (17:19)
[2022-01-14 19:00] VITALS: BP 131/83
[2022-01-14 20:55] VITALS: BP 116/69
[2022-01-15] VITALS: BP 110/64
[2022-01-15] MEDS ORDERED: TYLENOL EXTRA500 M2 PO (05:54)
[2022-01-15] MEDS ORDERED: PREVACID15 MG PO (05:58)
[2022-01-15] MEDS ORDERED: VOLTAREN ARTHRI20 GM T (06:00)
[2022-01-15 06:15] LABS: HEMATOCRIT 37.3 % (37.0-47.0); MEAN CELL VOLUME 83.4 fl (81.0-99.0); MEAN CORPUSCULAR HGB 24.6 pg (27.0-31.0); MEAN CORPUSCULAR HGB CONC 29.5 g/dl (33.0-37.0); PLATELET COUNT AUTOMATED 611 10*3/uL (130-400); RED BLOOD COUNT 4.47 10*6/uL (4.10-5.10); RED CELL DISTRI WIDTH 22.4 % (0-14.5); WHITE BLOOD COUNT 19.4 10*3/uL (4.8-10.8)
[2022-01-15 06:21] LABS: MANUAL DIFF REFLEX YES
[2022-01-15 06:28] LABS: BUN 15 mg/dl (7-24); CHLORIDE 104 mmol/L (98-107); CREATININE 0.85 mg/dL (0.55-1.02); POTASSIUM 3.3 mmol/L (3.5-5.1); SGOT/AST 23 IU/L (3-35); SGPT/ALT 10 U/L (12-78); SODIUM 140 mmol/L (136-145)
[2022-01-15 06:30] LABS: ALKALINE PHOSPHATASE 102 U/L (45-117); TOTAL PROTEIN 7.1 gm/dL (6.4-8.2)
[2022-01-15 07:21] LABS: BASOPHILS 1 % (0-1); TOTAL CELLS COUNTED 100 #CELLS
[2022-01-15 07:22] LABS: MICROCYTOSIS SLIGHT; PLATELET SUFFICIENCY HIGH (NORMAL); TARGET CELLS FEW
[2022-01-15 08:00] VITALS: BP 124/62
[2022-01-15 12:00] VITALS: BP 117/62
[2022-01-15 15:17] VITALS: BP 114/60
[2022-01-15 20:00] VITALS: BP 150/90; BP 98/56
[2022-01-16] VITALS: BP 126/54
[2022-01-16 06:37] LABS: BUN 11 mg/dl (7-24); CHLORIDE 108 mmol/L (98-107); CREATININE 0.66 mg/dL (0.55-1.02); POTASSIUM 2.8 mmol/L (3.5-5.1); SODIUM 144 mmol/L (136-145)
[2022-01-16 08:00] VITALS: BP 115/61
[2022-01-16 12:00] VITALS: BP 120/65
[2022-01-16 16:00] VITALS: BP 124/60
[2022-01-16 20:00] VITALS: BP 115/57
[2022-01-17] VITALS: BP 129/60
[2022-01-17 08:00] VITALS: BP 111/51
[2022-01-17 12:00] VITALS: BP 120/61
[2022-01-17 16:00] VITALS: BP 114/63
[2022-01-17 20:00] VITALS: BP 130/67
[2022-01-18] VITALS: BP 113/64
[2022-01-18 06:31] LABS: HEMATOCRIT 34.1 % (37.0-47.0); MEAN CELL VOLUME 83.6 fl (81.0-99.0); MEAN CORPUSCULAR HGB CONC 29.9 g/dl (33.0-37.0); MEAN PLATELET VOLUME 11.4 fl (9.6-12.3); PLATELET COUNT AUTOMATED 517 10*3/uL (130-400); RED BLOOD COUNT 4.08 10*6/uL (4.10-5.10); RED CELL DISTRI WIDTH 22.3 % (0-14.5); WHITE BLOOD COUNT 15.8 10*3/uL (4.8-10.8)
[2022-01-18 06:32] LABS: MANUAL DIFF REFLEX YES
[2022-01-18 06:58] LABS: BUN 9 mg/dl (7-24); CHLORIDE 111 mmol/L (98-107); CREATININE 0.62 mg/dL (0.55-1.02); POTASSIUM 2.6 mmol/L (3.5-5.1); SODIUM 145 mmol/L (136-145)
[2022-01-18 07:33] LABS: MICROCYTOSIS SLIGHT; PLATELET SUFFICIENCY HIGH (NORMAL); TOTAL CELLS COUNTED 100 #CELLS
[2022-01-18 07:34] LABS: BURR CELLS FEW; STOMATOCYTE FEW; TARGET CELLS FEW
[2022-01-18 08:00] VITALS: BP 116/62
[2022-01-18] MEDS ORDERED: OMNICEF300 MG PO (10:05)
[2022-01-18] MEDS ORDERED: METRONIDAZOLE500 M1 PO (10:05)
[2022-01-18 12:00] VITALS: BP 123/70
[2022-01-18 15:38] LABS: BUN 8 mg/dl (7-24); CHLORIDE 111 mmol/L (98-107); CREATININE 0.79 mg/dL (0.55-1.02); POTASSIUM 3.2 mmol/L (3.5-5.1); SODIUM 147 mmol/L (136-145)
[2022-01-18 16:00] VITALS: BP 120/50
[2022-01-18 20:00] VITALS: BP 123/65
[2022-01-19] VITALS: BP 113/53
[2022-01-19 08:00] VITALS: BP 107/69
[2022-01-19 12:00] VITALS: BP 105/67
[2022-01-19 16:00] VITALS: BP 109/56
[2022-01-19 20:00] VITALS: BP 100/61; BP 125/56
[2022-01-20] VITALS: BP 100/65
[2022-01-20 06:17] LABS: CREATININE 0.79 mg/dL (0.55-1.02)
[2022-01-20 06:24] LABS: HEMATOCRIT 37.3 % (37.0-47.0); MEAN CORPUSCULAR HGB 24.8 pg (27.0-31.0); MEAN CORPUSCULAR HGB CONC 30.3 g/dl (33.0-37.0); MEAN PLATELET VOLUME 11.6 fl (9.6-12.3); PLATELET COUNT AUTOMATED 495 10*3/uL (130-400); RED BLOOD COUNT 4.55 10*6/uL (4.10-5.10); RED CELL DISTRI WIDTH 22.3 % (0-14.5); WHITE BLOOD COUNT 22.6 10*3/uL (4.8-10.8)
[2022-01-20 06:25] LABS: MANUAL DIFF REFLEX YES
[2022-01-20 07:05] LABS: ACANTHOCYTES FEW; ATYPICAL LYMPHS 1 % (0-0); BURR CELLS FEW; HOWELL-JOLLY BODIES FEW; PLATELET SUFFICIENCY HIGH (NORMAL); POLYCHROMASIA SLIGHT; TARGET CELLS FEW; TOTAL CELLS COUNTED 100 #CELLS; TOXIC GRANULATION SLIGHT
[2022-01-20 07:06] LABS: MICROCYTOSIS SLIGHT; SCHISTOCYTES FEW
[2022-01-20 08:00] VITALS: BP 94/69
[2022-01-20 12:00] VITALS: BP 115/90
[2022-01-20 13:33] LABS: ALKALINE PHOSPHATASE 96 U/L (45-117); BUN 8 mg/dl (7-24); CHLORIDE 106 mmol/L (98-107); SGOT/AST 10 IU/L (3-35); SGPT/ALT 7 U/L (12-78); SODIUM 138 mmol/L (136-145); TOTAL PROTEIN 6.7 gm/dL (6.4-8.2)
[2022-01-20 16:00] VITALS: BP 128/64
[2022-01-20 20:00] VITALS: BP 102/68
[2022-01-21] VITALS: BP 82/54; BP 90/54
[2022-01-21 06:16] LABS: HEMATOCRIT 36.1 % (37.0-47.0); MANUAL DIFF REFLEX YES; MEAN CELL VOLUME 81.7 fl (81.0-99.0); MEAN CORPUSCULAR HGB 25.1 pg (27.0-31.0); MEAN CORPUSCULAR HGB CONC 30.7 g/dl (33.0-37.0); MEAN PLATELET VOLUME 11.7 fl (9.6-12.3); PLATELET COUNT AUTOMATED 483 10*3/uL (130-400); RED BLOOD COUNT 4.42 10*6/uL (4.10-5.10); RED CELL DISTRI WIDTH 22.5 % (0-14.5); WHITE BLOOD COUNT 19.3 10*3/uL (4.8-10.8)
[2022-01-21 06:37] LABS: ALKALINE PHOSPHATASE 82 U/L (45-117); BUN 7 mg/dl (7-24); CHLORIDE 106 mmol/L (98-107); CREATININE 0.75 mg/dL (0.55-1.02); POTASSIUM 3.3 mmol/L (3.5-5.1); SGOT/AST 10 IU/L (3-35); SGPT/ALT 6 U/L (12-78); SODIUM 140 mmol/L (136-145); TOTAL PROTEIN 6.4 gm/dL (6.4-8.2)
[2022-01-21 07:20] LABS: BASOPHILS 1 % (0-1); BURR CELLS FEW; PLATELET SUFFICIENCY HIGH (NORMAL); POLYCHROMASIA SLIGHT; TARGET CELLS FEW; TOTAL CELLS COUNTED 100 #CELLS; TOXIC GRANULATION SLIGHT
[2022-01-21 07:21] LABS: ACANTHOCYTES FEW; HOWELL-JOLLY BODIES FEW; ROULEAUX SLIGHT; SCHISTOCYTES FEW
[2022-01-21 08:00] VITALS: BP 104/62
[2022-01-21 12:00] VITALS: BP 100/66
[2022-01-21] MEDS ORDERED: VANCOCIN125 M1 PO (16:08)
== END 2022-01-21 17:20 | DRG 872 ==
LOC: ED 11:01 → 5E 15:05 → EDHOLD 15:05 → 5E 18:57
PROVIDERS: Internal Medicine Nephrology; Physician Assistant; ADMIT Internal Medicine; ATTEND Internal Medicine
DX: A41.9 Sepsis, unspecified organism (principal); N39.0 Urinary tract infection, site not specified; E44.0 Moderate protein-calorie malnutrition; K56.7 Ileus, unspecified; I47.1 Supraventricular tachycardia; K94.23 Gastrostomy malfunction; E87.0 Hyperosmolality and hypernatremia; K57.32 Diverticulitis of large intestine without perforation or abscess without bleeding; N26.1 Atrophy of kidney (terminal); F41.9 Anxiety disorder, unspecified; M54.9 Dorsalgia, unspecified; G89.29 Other chronic pain; E66.01 Morbid (severe) obesity due to excess calories; K58.9 Irritable bowel syndrome, unspecified; J44.9 Chronic obstructive pulmonary disease, unspecified; S31.109A Unspecified open wound of abdominal wall, unspecified quadrant without penetration into peritoneal cavity, initial encounter; X58.XXXA Exposure to other specified factors, initial encounter; Y83.8 Other surgical procedures as the cause of abnormal reaction of the patient, or of later complication, without mention of misadventure at the time of the procedure; Y82.8 Other medical devices associated with adverse incidents; I48.0 Paroxysmal atrial fibrillation; E87.6 Hypokalemia; E83.42 Hypomagnesemia; B96.20 Unspecified Escherichia coli [E. coli] as the cause of diseases classified elsewhere; Z20.822 Contact with and (suspected) exposure to COVID-19; Z88.0 Allergy status to penicillin; Z88.2 Allergy status to sulfonamides; Z88.6 Allergy status to analgesic agent; Z88.8 Allergy status to other drugs, medicaments and biological substances; Z90.710 Acquired absence of both cervix and uterus; Z90.49 Acquired absence of other specified parts of digestive tract; Z98.51 Tubal ligation status; Z98.84 Bariatric surgery status; Z83.3 Family history of diabetes mellitus; Z82.49 Family history of ischemic heart disease and other diseases of the circulatory system; Z81.1 Family history of alcohol abuse and dependence; Z87.891 Personal history of nicotine dependence; Y93.89 Activity, other specified; Y92.89 Other specified places as the place of occurrence of the external cause; Y99.8 Other external cause status; Z68.37 Body mass index [BMI] 37.0-37.9, adult

== ENCOUNTER → 2022-04-02 | Outpatient (CLI) | payer OTHER ==
[~2022-04-02] MED LIST changes: +CITRACAL-D3 201 EACH PO; +FLUCONAZOLE100 MG PO; +LINEZOLID600 MG PO; +MACRODANTIN50 MG PO; +METRONIDAZOLE500 M1 PO; +OMNICEF300 MG PO; +PANTOPRAZOLE SO20 MG PO; +PHENERGAN25 MG/1 ML IM; +PREVACID15 MG PO; +TYLENOL EXTRA500 M2 PO; +VANCOCIN HCL P250 MG PO; +VANCOCIN125 M1 PO; +VOLTAREN ARTHRI20 GM T
== END | disposition home or self-care (01) ==
LOC: WOUNDCARE 01:35
PROVIDERS: ATTEND Nurse Practitioner Family
DX: S31.109A Unspecified open wound of abdominal wall, unspecified quadrant without penetration into peritoneal cavity, initial encounter (principal); L98.492 Non-pressure chronic ulcer of skin of other sites with fat layer exposed; J44.9 Chronic obstructive pulmonary disease, unspecified; M10.9 Gout, unspecified; F41.9 Anxiety disorder, unspecified; F32.A Depression, unspecified; F43.10 Post-traumatic stress disorder, unspecified; Z87.891 Personal history of nicotine dependence; Z90.49 Acquired absence of other specified parts of digestive tract; Z96.653 Presence of artificial knee joint, bilateral

== ENCOUNTER → 2022-04-16 | Outpatient (CLI) | payer OTHER | LOC: WOUNDCARE 02:54 | PROVIDERS: ATTEND Nurse Practitioner Family | DX: Z53.21 Procedure and treatment not carried out due to patient leaving prior to being seen by health care provider (principal) ==

== ENCOUNTER → 2022-04-18 | Outpatient (CLI) | payer OTHER | END | disposition home or self-care (01) | LOC: WOUNDCARE 00:59 | PROVIDERS: ATTEND Nurse Practitioner Family | DX: S31.109D Unspecified open wound of abdominal wall, unspecified quadrant without penetration into peritoneal cavity, subsequent encounter (principal); L98.492 Non-pressure chronic ulcer of skin of other sites with fat layer exposed; J44.9 Chronic obstructive pulmonary disease, unspecified; M10.9 Gout, unspecified; F41.9 Anxiety disorder, unspecified; F32.A Depression, unspecified; F43.10 Post-traumatic stress disorder, unspecified; Z87.891 Personal history of nicotine dependence; Z90.49 Acquired absence of other specified parts of digestive tract; Z96.653 Presence of artificial knee joint, bilateral; X58.XXXD Exposure to other specified factors, subsequent encounter ==

== ENCOUNTER → 2022-04-24 | Outpatient (CLI) | payer OTHER | END | disposition home or self-care (01) | LOC: WOUNDCARE 01:28 | PROVIDERS: ATTEND Nurse Practitioner Family | DX: S31.109D Unspecified open wound of abdominal wall, unspecified quadrant without penetration into peritoneal cavity, subsequent encounter (principal); L98.492 Non-pressure chronic ulcer of skin of other sites with fat layer exposed; J44.9 Chronic obstructive pulmonary disease, unspecified; M10.9 Gout, unspecified; F41.9 Anxiety disorder, unspecified; F32.A Depression, unspecified; F43.10 Post-traumatic stress disorder, unspecified; Z87.891 Personal history of nicotine dependence; Z90.49 Acquired absence of other specified parts of digestive tract; Z96.653 Presence of artificial knee joint, bilateral; X58.XXXD Exposure to other specified factors, subsequent encounter ==

== ENCOUNTER → 2022-05-16 | Outpatient (CLI) | payer OTHER | END | disposition home or self-care (01) | LOC: WOUNDCARE 10:01 | PROVIDERS: ATTEND Nurse Practitioner Family | DX: S31.109D Unspecified open wound of abdominal wall, unspecified quadrant without penetration into peritoneal cavity, subsequent encounter (principal); L98.492 Non-pressure chronic ulcer of skin of other sites with fat layer exposed; J44.9 Chronic obstructive pulmonary disease, unspecified; M10.9 Gout, unspecified; F41.9 Anxiety disorder, unspecified; F43.10 Post-traumatic stress disorder, unspecified; F32.A Depression, unspecified; Z87.891 Personal history of nicotine dependence; Z90.49 Acquired absence of other specified parts of digestive tract; X58.XXXD Exposure to other specified factors, subsequent encounter ==

== ENCOUNTER → 2022-05-30 | Outpatient (CLI) | payer OTHER | END | disposition home or self-care (01) | LOC: WOUNDCARE 01:19 | PROVIDERS: ATTEND Nurse Practitioner Family | DX: S31.109D Unspecified open wound of abdominal wall, unspecified quadrant without penetration into peritoneal cavity, subsequent encounter (principal); L98.492 Non-pressure chronic ulcer of skin of other sites with fat layer exposed; J44.9 Chronic obstructive pulmonary disease, unspecified; M10.9 Gout, unspecified; F41.9 Anxiety disorder, unspecified; F32.A Depression, unspecified; F43.10 Post-traumatic stress disorder, unspecified; Z87.891 Personal history of nicotine dependence; Z90.49 Acquired absence of other specified parts of digestive tract; Z96.653 Presence of artificial knee joint, bilateral; X58.XXXD Exposure to other specified factors, subsequent encounter ==

== ENCOUNTER → 2022-06-12 | Outpatient (CLI) | payer OTHER | END | disposition home or self-care (01) | LOC: WOUNDCARE 01:08 | PROVIDERS: ATTEND Nurse Practitioner Family | DX: S31.109D Unspecified open wound of abdominal wall, unspecified quadrant without penetration into peritoneal cavity, subsequent encounter (principal); L98.492 Non-pressure chronic ulcer of skin of other sites with fat layer exposed; J44.9 Chronic obstructive pulmonary disease, unspecified; M10.9 Gout, unspecified; F41.9 Anxiety disorder, unspecified; F32.A Depression, unspecified; F43.10 Post-traumatic stress disorder, unspecified; Z87.891 Personal history of nicotine dependence; Z90.49 Acquired absence of other specified parts of digestive tract; Z96.653 Presence of artificial knee joint, bilateral; X58.XXXD Exposure to other specified factors, subsequent encounter ==

== ENCOUNTER 2022-06-16 10:52 | Emergency (ER) | payer OTHER ==
[~2022-06-16] VITALS: Wt 99.8 kg
[2022-06-16 11:43] LABS: HEMATOCRIT 40.1 % (37.0-47.0); MANUAL DIFF REFLEX YES; MEAN CELL VOLUME 94.6 fl (81.0-99.0); MEAN CORPUSCULAR HGB 30.2 pg (27.0-31.0); MEAN CORPUSCULAR HGB CONC 31.9 g/dl (33.0-37.0); MEAN PLATELET VOLUME 10.7 fl (9.6-12.3); PLATELET COUNT AUTOMATED 505 10*3/uL (130-400); RED BLOOD COUNT 4.24 10*6/uL (4.10-5.10); RED CELL DISTRI WIDTH 18.5 % (0-14.5); WHITE BLOOD COUNT 15.1 10*3/uL (4.8-10.8)
[2022-06-16 11:59] LABS: ALKALINE PHOSPHATASE 109 U/L (46-116); BUN 6 mg/dl (9-23); CHLORIDE 104 mmol/L (98-107); POTASSIUM 3.9 mmol/L (3.4-5.1); SGPT/ALT 9 U/L (10-49); TOTAL PROTEIN 5.7 gm/dL (6.0-8.0)
[2022-06-16 12:02] LABS: HOWELL-JOLLY BODIES FEW; PLATELET SUFFICIENCY HIGH (NORMAL); POLYCHROMASIA SLIGHT; TARGET CELLS FEW; TOTAL CELLS COUNTED 100 #CELLS
[2022-06-16 13:07] LABS: BILIRUBIN Negative (Negative); BLOOD Negative (Negative); CLARITY Clear (Clear); COLOR Yellow (Yellow); GLUCOSE Negative (Negative); KETONE Trace (Negative); LEUKO ESTERASE Trace (Negative); NITRITE Negative (Negative); SPECIFIC GRAVITY 1.015 (1.001-1.030)
[2022-06-16] MEDS ORDERED: MEDROL DOSEPAK4 MG PO (14:09)
[2022-06-16] MEDS ORDERED: VIBRAMYCIN100 MG PO (14:09)
== END 2022-06-16 14:17 | disposition home or self-care (01) ==
LOC: ED 10:52
PROVIDERS: Nurse Practitioner Family
DX: J44.1 Chronic obstructive pulmonary disease with (acute) exacerbation (principal); Z88.0 Allergy status to penicillin; Z88.2 Allergy status to sulfonamides; Z91.040 Latex allergy status; Z88.8 Allergy status to other drugs, medicaments and biological substances; Z90.49 Acquired absence of other specified parts of digestive tract; Z98.51 Tubal ligation status; Z98.890 Other specified postprocedural states; Z87.442 Personal history of urinary calculi; Z87.891 Personal history of nicotine dependence; Z20.822 Contact with and (suspected) exposure to COVID-19; Z79.899 Other long term (current) drug therapy

== ENCOUNTER → 2022-07-14 | Outpatient (CLI) | payer OTHER ==
[~2022-07-14] MED LIST changes: +VIBRAMYCIN100 MG PO
== END | disposition home or self-care (01) ==
LOC: WOUNDCARE 07-07 02:18
PROVIDERS: ATTEND Nurse Practitioner Family
DX: T81.89XD Other complications of procedures, not elsewhere classified, subsequent encounter (principal); S31.109D Unspecified open wound of abdominal wall, unspecified quadrant without penetration into peritoneal cavity, subsequent encounter; L98.492 Non-pressure chronic ulcer of skin of other sites with fat layer exposed; J44.9 Chronic obstructive pulmonary disease, unspecified; F41.9 Anxiety disorder, unspecified; F32.A Depression, unspecified; F43.10 Post-traumatic stress disorder, unspecified; M10.9 Gout, unspecified; Z87.891 Personal history of nicotine dependence; Z90.49 Acquired absence of other specified parts of digestive tract; Z96.653 Presence of artificial knee joint, bilateral; X58.XXXD Exposure to other specified factors, subsequent encounter; Y83.8 Other surgical procedures as the cause of abnormal reaction of the patient, or of later complication, without mention of misadventure at the time of the procedure

== ENCOUNTER → 2022-07-14 | Outpatient (CLI) | payer OTHER ==
[2022-07-14 12:11] LABS: BASO # 0.1 10*3/uL (0.0-0.1); BASO % 0.4 % (0.0-1.0); EOS # 0.7 10*3/uL (0.0-0.4); EOS % 5.1 % (1.0-4.0); HEMATOCRIT 41.4 % (37.0-47.0); LYMPH # 4.3 10*3/uL (1.3-4.4); LYMPH % 31.5 % (27.0-41.0); MEAN CELL VOLUME 97.2 fl (81.0-99.0); MEAN CORPUSCULAR HGB 29.6 pg (27.0-31.0); MEAN CORPUSCULAR HGB CONC 30.4 g/dl (33.0-37.0); MEAN PLATELET VOLUME 10.6 fl (9.6-12.3); MONO # 0.9 10*3/uL (0.1-1.0); MONO % 6.5 % (3.0-9.0); NEUT # 7.6 10*3/uL (2.3-7.9); NEUT % 56.2 % (47.0-73.0); PLATELET COUNT AUTOMATED 546 10*3/uL (130-400); RED BLOOD COUNT 4.26 10*6/uL (4.10-5.10); RED CELL DISTRI WIDTH 16.1 % (0-14.5); WHITE BLOOD COUNT 13.5 10*3/uL (4.8-10.8)
[2022-07-14 12:25] LABS: ALKALINE PHOSPHATASE 112 U/L (46-116); BUN 7 mg/dl (9-23); CHLORIDE 108 mmol/L (98-107); POTASSIUM 3.6 mmol/L (3.4-5.1); TOTAL PROTEIN 6.4 gm/dL (6.0-8.0)
[2022-07-14 12:26] LABS: SGPT/ALT < 7 U/L (10-49)
== END | disposition home or self-care (01) ==
LOC: LAB 11:32
PROVIDERS: ATTEND Internal Medicine
DX: R06.02 Shortness of breath (principal)

== ENCOUNTER → 2022-10-06 | Outpatient (CLI) | payer OTHER | END | disposition home or self-care (01) | LOC: MAMMO 01:10 | PROVIDERS: ATTEND Internal Medicine | DX: Z12.31 Encounter for screening mammogram for malignant neoplasm of breast (principal); I49.3 Ventricular premature depolarization; N64.9 Disorder of breast, unspecified ==

== ENCOUNTER 2023-01-12 09:15 | Emergency (ER) | payer OTHER ==
[~2023-01-12] VITALS: Ht 167.6 cm; Wt 95.7 kg
[2023-01-12 10:32] LABS: BASO # 0.1 10*3/uL (0.0-0.1); BASO % 0.4 % (0.0-1.0); EOS # 0.2 10*3/uL (0.0-0.4); HEMATOCRIT 45.8 % (37.0-47.0); LYMPH # 3.8 10*3/uL (1.3-4.4); LYMPH % 20.1 % (27.0-41.0); MEAN CORPUSCULAR HGB 30.1 pg (27.0-31.0); MEAN CORPUSCULAR HGB CONC 31.7 g/dl (33.0-37.0); MEAN PLATELET VOLUME 10.6 fl (9.6-12.3); MONO # 1.1 10*3/uL (0.1-1.0); NEUT # 13.6 10*3/uL (2.3-7.9); NEUT % 72.1 % (47.0-73.0); PLATELET COUNT AUTOMATED 540 10*3/uL (130-400); RED BLOOD COUNT 4.82 10*6/uL (4.10-5.10); RED CELL DISTRI WIDTH 15.2 % (0-14.5); WHITE BLOOD COUNT 18.9 10*3/uL (4.8-10.8)
[2023-01-12 10:58] LABS: ACT PARTIAL THROMBO TIME 27.9 SECONDS (20.0-32.1); INTERNATIONAL NORM RATIO 1.1 (2.0-3.5)
[2023-01-12 11:04] LABS: BILIRUBIN Negative (Negative); BLOOD Negative (Negative); CLARITY Cloudy (Clear); COLOR Yellow (Yellow); GLUCOSE Negative (Negative); KETONE Negative (Negative); LEUKO ESTERASE 3+ (Negative); NITRITE Negative (Negative)
[2023-01-12 11:12] LABS: ALKALINE PHOSPHATASE 113 U/L (46-116); BUN 6 mg/dl (9-23); CHLORIDE 109 mmol/L (98-107); LIPASE 26 U/L (12-53); POTASSIUM 3.8 mmol/L (3.4-5.1); TOTAL PROTEIN 6.6 gm/dL (6.0-8.0)
[2023-01-12 11:16] LABS: SGPT/ALT < 7 U/L (10-49)
[2023-01-12 11:26] LABS: BACTERIA 3+; WBC TNTC wbc/hpf (0-5)
[2023-01-12] MEDS ORDERED: VITAMIN D350 MC2 PO (11:43)
[2023-01-12] MEDS ORDERED: RIVASTIGMINE T4.5 M1 PO (11:43)
[2023-01-12] MEDS ORDERED: LEXAPRO10 MG PO (11:44)
[2023-01-12] MEDS ORDERED: MEMANTINE HCL5 MG PO (11:44)
[2023-01-12] MEDS ORDERED: BIOTIN10000 MC1 PO (11:45)
[2023-01-12] MEDS ORDERED: TENORMIN25 M1 PO (11:45)
[2023-01-12] MEDS ORDERED: COQ-10100 MG PO (11:46)
[2023-01-12] MEDS ORDERED: VITAMIN C500 M8 PO (11:46)
[2023-01-12] MEDS ORDERED: ZINC50 M4 PO (11:46)
[2023-01-12] MEDS ORDERED: TRINTELLIX20 MG PO (11:46)
[2023-01-12] MEDS ORDERED: PROTONIX40 MG PO (11:47)
[2023-01-12] MEDS ORDERED: MAGNESIUM400 MG PO (11:47)
[2023-01-12] MEDS ORDERED: ZYLOPRIM100 MG PO (11:47)
[2023-01-12] MEDS ORDERED: NORTRIPTYLINE25 M1 PO (11:47)
[2023-01-12] MEDS ORDERED: HYDROCODONE-AC1 EAC1 PO (11:48)
[2023-01-12] MEDS ORDERED: MELATONIN10 M2 PO (11:48)
== END 2023-01-12 17:38 | disposition short-term general hospital (02) ==
LOC: ED 09:15
PROVIDERS: Emergency Medicine
DX: K63.89 Other specified diseases of intestine (principal); K59.00 Constipation, unspecified; A41.9 Sepsis, unspecified organism; N39.0 Urinary tract infection, site not specified; J44.9 Chronic obstructive pulmonary disease, unspecified; K52.9 Noninfective gastroenteritis and colitis, unspecified; Z88.0 Allergy status to penicillin; Z88.2 Allergy status to sulfonamides; Z91.040 Latex allergy status; Z88.8 Allergy status to other drugs, medicaments and biological substances; Z88.6 Allergy status to analgesic agent; Z91.041 Radiographic dye allergy status; Z79.899 Other long term (current) drug therapy; Z98.890 Other specified postprocedural states; Z90.49 Acquired absence of other specified parts of digestive tract; Z98.84 Bariatric surgery status; Z98.51 Tubal ligation status; Z87.442 Personal history of urinary calculi; Z87.891 Personal history of nicotine dependence

== ENCOUNTER 2023-06-11 01:44 | Inpatient (IN) | payer OTHER ==
[~2023-06-11] VITALS: Ht 165.1 cm; Wt 98.1 kg
[~2023-06-11 01:44] MED LIST changes: +AMLODIPINE BESY10 MG PO; +AMLODIPINE BESYL5 MG PO; +BIOTIN10000 MC1 PO; +CARAFATE1 GM PO; +COQ-10100 MG PO; +ERTAPENEM1 GM IV; +HYDRALAZINE HYD50 MG PO; +LEXAPRO10 MG PO; +MAGNESIUM400 MG PO; +MELATONIN10 M2 PO; +MUCINEX1200 M1 PO; +NORTRIPTYLINE25 M1 PO; +PROTONIX40 MG PO; +TENORMIN25 M1 PO; +ZINC50 M4 PO; +ZYLOPRIM100 MG PO
[2023-06-11 01:45] VITALS: BP 153/97
[2023-06-11 02:06] LABS: HEMATOCRIT 46.3 % (37.0-47.0); MEAN CELL VOLUME 90.6 fl (81.0-99.0); MEAN PLATELET VOLUME 10.8 fl (9.6-12.3); NUCLEATED RED BLOOD CELL 0.1 % (0.0-0.0); PLATELET COUNT AUTOMATED 394 10*3/uL (130-400); RED BLOOD COUNT 5.11 10*6/uL (4.10-5.10); RED CELL DISTRI WIDTH 15.1 % (0-14.5); WHITE BLOOD COUNT 25.8 10*3/uL (4.8-10.8)
[2023-06-11 02:08] LABS: MANUAL DIFF REFLEX YES
[2023-06-11] MEDS ORDERED: Ondansetron Hydrochloride 4 MG/2 ML VIAL IV ONE (02:20)
[2023-06-11 02:23] LABS: ALKALINE PHOSPHATASE 102 U/L (46-116); BUN 16 mg/dl (9-23); CHLORIDE 108 mmol/L (98-107); LIPASE 58 U/L (12-53); POTASSIUM 3.2 mmol/L (3.4-5.1); SGPT/ALT 12 U/L (5-49); TOTAL PROTEIN 5.5 gm/dL (6.0-8.0)
[2023-06-11 02:34] LABS: PLATELET SUFFICIENCY NORMAL (NORMAL); TOTAL CELLS COUNTED 100 #CELLS
[2023-06-11] MEDS ORDERED: BISACODYL 10 MG SUPP R PRN (03:40)
[2023-06-11] MEDS ORDERED: BISACODYL 5 MG TAB PO PRN (03:40)
[2023-06-11] MEDS ORDERED: Magnesium Hydroxide 30 ML UDC PO PRN (03:40)
[2023-06-11] MEDS ORDERED: Ondansetron Hydrochloride 4 MG/2 ML VIAL IV PRN (03:40)
[2023-06-11] MEDS ORDERED: ACETAMINOPHEN 325 MG TAB PO PRN (03:40)
[2023-06-11] MEDS ORDERED: POTASSIUM CHLORIDE 20 MEQ TAB PO ONE (03:45)
[2023-06-11] MEDS ORDERED: SODIUM CHLORIDE 0.9% 1,000 ML IV ONE (03:45)
[2023-06-11 05:03] LABS: BILIRUBIN Negative (Negative); BLOOD Negative (Negative); CLARITY Clear (Clear); COLOR Yellow (Yellow); GLUCOSE Negative (Negative); KETONE Negative (Negative); LEUKO ESTERASE Negative (Negative); NITRITE Negative (Negative); SPECIFIC GRAVITY 1.015 (1.001-1.030); UROBILINOGEN 0.2 E.U./dl (0.0-1.0)
[2023-06-11] MEDS ORDERED: Pantoprazole Sodium 40 MG VIAL IV SCH ×2 (06:00→22:00)
[2023-06-11] MEDS ORDERED: Meropenem 1 GM in SODIUM CHLORIDE 0.9% 100 ML IV SCH ×2 (06:52→08:00)
[2023-06-11 07:16] VITALS: BP 151/72
[2023-06-11] MEDS ORDERED: VANCOMYCIN/WATER FOR INJ (PEG) 350 ML IV SCH (08:00)
[2023-06-11 12:30] VITALS: BP 148/74
[2023-06-11 15:45] VITALS: BP 170/82
[2023-06-11 16:00] VITALS: BP 173/83
[2023-06-11] MEDS ORDERED: HYDROCODONE-AC1 EAC1 PO (16:14)
[2023-06-11] MEDS ORDERED: SODIUM CHLORIDE 0.9% 1,000 ML IV SCH (17:05)
[2023-06-11 20:00] VITALS: BP 162/82
[2023-06-11] MEDS ORDERED: TOPROL XL100 MG PO (22:05)
[2023-06-11] MEDS ORDERED: LASIX20 MG PO (22:06)
[2023-06-11] MEDS ORDERED: PLAVIX75 M1 PO (22:06)
[2023-06-11] MEDS ORDERED: LASIX40 MG PO (22:06)
[2023-06-11] MEDS ORDERED: ASPIRIN81 M1 PO (22:07)
[2023-06-12] VITALS: BP 153/59
[2023-06-12] MEDS ORDERED: Meropenem 1 GM in SODIUM CHLORIDE 0.9% 100 ML IV SCH
[2023-06-12 07:09] LABS: HEMATOCRIT 43.7 % (37.0-47.0); MEAN CELL VOLUME 93.2 fl (81.0-99.0); MEAN CORPUSCULAR HGB 29.2 pg (27.0-31.0); MEAN CORPUSCULAR HGB CONC 31.4 g/dl (33.0-37.0); MEAN PLATELET VOLUME 10.9 fl (9.6-12.3); PLATELET COUNT AUTOMATED 319 10*3/uL (130-400); RED BLOOD COUNT 4.69 10*6/uL (4.10-5.10); RED CELL DISTRI WIDTH 15.4 % (0-14.5); WHITE BLOOD COUNT 26.1 10*3/uL (4.8-10.8)
[2023-06-12 07:15] LABS: MANUAL DIFF REFLEX YES
[2023-06-12] MEDS ORDERED: Metoclopramide Hydrochloride 10 MG/2 ML AMP IV SCH (07:30)
[2023-06-12 07:38] VITALS: BP 145/72
[2023-06-12 07:41] LABS: ALKALINE PHOSPHATASE 87 U/L (46-116); BUN 10 mg/dl (9-23); CHLORIDE 109 mmol/L (98-107); CHOLESTEROL 133 mg/dL (<200); LDL CHOLESTEROL 60 mg/dL (9-159); POTASSIUM 3.4 mmol/L (3.4-5.1); TOTAL PROTEIN 5.1 gm/dL (6.0-8.0); TRIGLYCERIDES 130 mg/dl (<150)
[2023-06-12 07:43] LABS: SGPT/ALT < 7 U/L (5-49)
[2023-06-12 07:45] LABS: HOWELL-JOLLY BODIES FEW; PLATELET SUFFICIENCY NORMAL (NORMAL); SCHISTOCYTES FEW; SPHEROCYTES FEW; TOTAL CELLS COUNTED 100 #CELLS
[2023-06-12 12:00] VITALS: BP 132/70
[2023-06-12] MEDS ORDERED: VANCOMYCIN/WATER FOR INJ (PEG) 250 ML IV SCH (14:00)
[2023-06-12 16:00] VITALS: BP 125/67
[2023-06-12 20:00] VITALS: BP 155/68
[2023-06-12 23:14] LABS: BILIRUBIN Negative (Negative); BLOOD Trace-Lysed (Negative); CLARITY Clear (Clear); COLOR Yellow (Yellow); GLUCOSE Negative (Negative); KETONE Trace (Negative); LEUKO ESTERASE 1+ (Negative); NITRITE Negative (Negative); UROBILINOGEN 0.2 E.U./dl (0.0-1.0)
[2023-06-12 23:33] LABS: EPITHELIAL CELLS 41-50; WBC 16-20 wbc/hpf (0-5); YEAST TRACE
[2023-06-13] VITALS: BP 141/76
[2023-06-13 08:00] VITALS: BP 137/76
[2023-06-13 12:00] VITALS: BP 132/72
[2023-06-13 16:00] VITALS: BP 117/64
[2023-06-13] MEDS ORDERED: VANCOMYCIN/WATER FOR INJ (PEG) 250 ML IV SCH (17:00)
[2023-06-13 20:00] VITALS: BP 163/71
[2023-06-13] MEDS ORDERED: Mirtazapine 15 MG TAB PO SCH (21:00)
[2023-06-14] VITALS: BP 160/72
[2023-06-14 08:00] VITALS: BP 137/72
[2023-06-14 12:00] VITALS: BP 129/72
[2023-06-14 13:03] LABS: BASO % 0.2 % (0.0-1.0); EOS # 0.5 10*3/uL (0.0-0.4); EOS % 2.5 % (1.0-4.0); LYMPH # 2.5 10*3/uL (1.3-4.4); LYMPH % 13.8 % (27.0-41.0); MEAN CELL VOLUME 94.8 fl (81.0-99.0); MEAN CORPUSCULAR HGB 28.7 pg (27.0-31.0); MEAN CORPUSCULAR HGB CONC 30.3 g/dl (33.0-37.0); MEAN PLATELET VOLUME 11.1 fl (9.6-12.3); MONO # 1.3 10*3/uL (0.1-1.0); MONO % 7.1 % (3.0-9.0); NEUT # 13.8 10*3/uL (2.3-7.9); NEUT % 75.8 % (47.0-73.0); PLATELET COUNT AUTOMATED 303 10*3/uL (130-400); RED BLOOD COUNT 4.22 10*6/uL (4.10-5.10); RED CELL DISTRI WIDTH 15.7 % (0-14.5); WHITE BLOOD COUNT 18.2 10*3/uL (4.8-10.8)
[2023-06-14 16:00] VITALS: BP 151/75
[2023-06-14] MEDS ORDERED: VANCOMYCIN/WATER FOR INJ (PEG) 250 ML IV SCH (18:00)
[2023-06-14 20:00] VITALS: BP 149/64
[2023-06-15] VITALS: BP 146/69
[2023-06-15 06:21] LABS: BASO % 0.1 % (0.0-1.0); EOS # 0.6 10*3/uL (0.0-0.4); HEMATOCRIT 38.1 % (37.0-47.0); LYMPH # 3.5 10*3/uL (1.3-4.4); LYMPH % 23.9 % (27.0-41.0); MEAN CELL VOLUME 92.9 fl (81.0-99.0); MEAN CORPUSCULAR HGB 28.8 pg (27.0-31.0); MONO # 1.4 10*3/uL (0.1-1.0); MONO % 9.3 % (3.0-9.0); NEUT # 9.1 10*3/uL (2.3-7.9); NEUT % 62.2 % (47.0-73.0); PLATELET COUNT AUTOMATED 293 10*3/uL (130-400); RED CELL DISTRI WIDTH 15.6 % (0-14.5); WHITE BLOOD COUNT 14.6 10*3/uL (4.8-10.8)
[2023-06-15 07:13] LABS: ALKALINE PHOSPHATASE 97 U/L (46-116); CHLORIDE 111 mmol/L (98-107); POTASSIUM 2.8 mmol/L (3.4-5.1); TOTAL PROTEIN 4.9 gm/dL (6.0-8.0)
[2023-06-15 07:14] LABS: BUN < 5 mg/dl (9-23); SGPT/ALT < 7 U/L (5-49)
[2023-06-15 08:00] VITALS: BP 151/71
[2023-06-15] MEDS ORDERED: POTASSIUM CHLORIDE IN WATER 100 ML IV SCH (09:00)
[2023-06-15] MEDS ORDERED: POTASSIUM CHLORIDE 20 MEQ TAB PO ONE (10:20)
[2023-06-15 12:00] VITALS: BP 126/76
[2023-06-15] MEDS ORDERED: POTASSIUM CHLORIDE 20 MEQ TAB PO SCH (12:00)
[2023-06-15] MEDS ORDERED: ATENOLOL 25 MG TAB PO SCH (14:40)
[2023-06-15 16:00] VITALS: BP 148/64
[2023-06-15 20:00] VITALS: BP 156/73
[2023-06-15] MEDS ORDERED: LINEZOLID 600 MG TAB PO SCH (22:00)
[2023-06-16] VITALS: BP 125/62
[2023-06-16 07:56] VITALS: BP 144/76
[2023-06-16 11:59] VITALS: BP 153/85
[2023-06-16] MEDS ORDERED: LINEZOLID600 MG PO (12:40)
== END 2023-06-16 14:59 | DRG 871 ==
LOC: ED 01:44 → EDHOLD 02:59 → 5E 02:59
PROVIDERS: Internal Medicine; Internal Medicine Infectious Disease; Student in an Organized Health Care Education/Training Program; ADMIT Internal Medicine; ATTEND Internal Medicine
DX: A41.9 Sepsis, unspecified organism (principal); E43 Unspecified severe protein-calorie malnutrition; J69.0 Pneumonitis due to inhalation of food and vomit; J98.11 Atelectasis; I31.39 Other pericardial effusion (noninflammatory); Z16.21 Resistance to vancomycin; N39.0 Urinary tract infection, site not specified; F33.9 Major depressive disorder, recurrent, unspecified; Q89.01 Asplenia (congenital); K29.70 Gastritis, unspecified, without bleeding; K52.9 Noninfective gastroenteritis and colitis, unspecified; F41.9 Anxiety disorder, unspecified; E87.6 Hypokalemia; I10 Essential (primary) hypertension; J44.9 Chronic obstructive pulmonary disease, unspecified; E66.01 Morbid (severe) obesity due to excess calories; E87.8 Other disorders of electrolyte and fluid balance, not elsewhere classified; F43.10 Post-traumatic stress disorder, unspecified; K21.9 Gastro-esophageal reflux disease without esophagitis; Z90.49 Acquired absence of other specified parts of digestive tract; Z88.0 Allergy status to penicillin; Z88.2 Allergy status to sulfonamides; Z91.041 Radiographic dye allergy status; Z91.040 Latex allergy status; Z88.6 Allergy status to analgesic agent; Z88.8 Allergy status to other drugs, medicaments and biological substances; Z79.899 Other long term (current) drug therapy; Z98.891 History of uterine scar from previous surgery; Z98.51 Tubal ligation status; Z83.3 Family history of diabetes mellitus; Z82.49 Family history of ischemic heart disease and other diseases of the circulatory system; Z79.1 Long term (current) use of non-steroidal anti-inflammatories (NSAID); Z68.35 Body mass index [BMI] 35.0-35.9, adult

== ENCOUNTER → 2023-10-02 | Outpatient (CLI) | payer OTHER ==
[~2023-10-02] MED LIST changes: +ASPIRIN81 M1 PO; +LASIX20 MG PO; +LASIX40 MG PO; +LAXATIVE SUPPOS10 MG R; +PLAVIX75 M1 PO; +TOPROL XL100 MG PO
== END | disposition home or self-care (01) ==
LOC: WOUNDCARE 01:39
PROVIDERS: ATTEND Nurse Practitioner Family
DX: S30.811A Abrasion of abdominal wall, initial encounter (principal); S31.109A Unspecified open wound of abdominal wall, unspecified quadrant without penetration into peritoneal cavity, initial encounter; R21 Rash and other nonspecific skin eruption; L98.492 Non-pressure chronic ulcer of skin of other sites with fat layer exposed; M10.9 Gout, unspecified; J44.9 Chronic obstructive pulmonary disease, unspecified; F41.9 Anxiety disorder, unspecified; F32.A Depression, unspecified; Z87.891 Personal history of nicotine dependence; Z98.51 Tubal ligation status; Z98.84 Bariatric surgery status; Z90.49 Acquired absence of other specified parts of digestive tract; Z96.653 Presence of artificial knee joint, bilateral; X58.XXXA Exposure to other specified factors, initial encounter; Y93.89 Activity, other specified; Y92.89 Other specified places as the place of occurrence of the external cause; Y99.8 Other external cause status

== ENCOUNTER → 2023-10-08 | Outpatient (CLI) | payer OTHER | END | disposition home or self-care (01) | LOC: WOUNDCARE 02:06 | PROVIDERS: ATTEND Nurse Practitioner Family | DX: S30.811D Abrasion of abdominal wall, subsequent encounter (principal); S31.109D Unspecified open wound of abdominal wall, unspecified quadrant without penetration into peritoneal cavity, subsequent encounter; L98.492 Non-pressure chronic ulcer of skin of other sites with fat layer exposed; M10.9 Gout, unspecified; J44.9 Chronic obstructive pulmonary disease, unspecified; F41.9 Anxiety disorder, unspecified; F32.A Depression, unspecified; Z87.891 Personal history of nicotine dependence; Z98.51 Tubal ligation status; Z98.84 Bariatric surgery status; Z90.49 Acquired absence of other specified parts of digestive tract; Z96.653 Presence of artificial knee joint, bilateral; X58.XXXD Exposure to other specified factors, subsequent encounter ==

== ENCOUNTER → 2023-10-16 | Outpatient (CLI) | payer OTHER | END | disposition home or self-care (01) | LOC: WOUNDCARE 00:31 | PROVIDERS: ATTEND Nurse Practitioner Family | DX: S30.811D Abrasion of abdominal wall, subsequent encounter (principal); S31.109D Unspecified open wound of abdominal wall, unspecified quadrant without penetration into peritoneal cavity, subsequent encounter; L98.492 Non-pressure chronic ulcer of skin of other sites with fat layer exposed; M10.9 Gout, unspecified; J44.9 Chronic obstructive pulmonary disease, unspecified; F41.9 Anxiety disorder, unspecified; F32.A Depression, unspecified; Z87.891 Personal history of nicotine dependence; Z98.51 Tubal ligation status; Z98.84 Bariatric surgery status; Z90.49 Acquired absence of other specified parts of digestive tract; Z96.653 Presence of artificial knee joint, bilateral; X58.XXXD Exposure to other specified factors, subsequent encounter ==

== ENCOUNTER → 2023-10-23 | Outpatient (CLI) | payer OTHER | END | disposition home or self-care (01) | LOC: WOUNDCARE 01:41 | PROVIDERS: ATTEND Nurse Practitioner Family | DX: S31.109D Unspecified open wound of abdominal wall, unspecified quadrant without penetration into peritoneal cavity, subsequent encounter (principal); L98.492 Non-pressure chronic ulcer of skin of other sites with fat layer exposed; J44.9 Chronic obstructive pulmonary disease, unspecified; M10.9 Gout, unspecified; F41.9 Anxiety disorder, unspecified; F32.A Depression, unspecified; Z90.49 Acquired absence of other specified parts of digestive tract; Z96.653 Presence of artificial knee joint, bilateral; Z87.891 Personal history of nicotine dependence; X58.XXXD Exposure to other specified factors, subsequent encounter ==

== ENCOUNTER → 2023-11-13 | Outpatient (CLI) | payer OTHER ==
[2023-11-13 11:53] LABS: HEMATOCRIT 47.9 % (37.0-47.0); MEAN CELL VOLUME 95.6 fl (81.0-99.0); MEAN CORPUSCULAR HGB 30.3 pg (27.0-31.0); MEAN CORPUSCULAR HGB CONC 31.7 g/dl (33.0-37.0); MEAN PLATELET VOLUME 10.6 fl (9.6-12.3); PLATELET COUNT AUTOMATED 485 10*3/uL (130-400); RED BLOOD COUNT 5.01 10*6/uL (4.10-5.10); RED CELL DISTRI WIDTH 15.6 % (0-14.5); WHITE BLOOD COUNT 13.5 10*3/uL (4.8-10.8)
[2023-11-13 12:10] LABS: MANUAL DIFF REFLEX YES
[2023-11-13 12:16] LABS: PLATELET SUFFICIENCY HIGH (NORMAL); TOTAL CELLS COUNTED 100 #CELLS
[2023-11-13 12:17] LABS: BURR CELLS FEW
== END | disposition home or self-care (01) ==
LOC: LAB 11:20
PROVIDERS: ATTEND Physician Assistant
DX: S39.91XA Unspecified injury of abdomen, initial encounter (principal); R29.898 Other symptoms and signs involving the musculoskeletal system; D72.10 Eosinophilia, unspecified; D72.829 Elevated white blood cell count, unspecified; Z90.81 Acquired absence of spleen; X58.XXXA Exposure to other specified factors, initial encounter; Y93.89 Activity, other specified; Y92.89 Other specified places as the place of occurrence of the external cause; Y99.8 Other external cause status

== ENCOUNTER → 2023-12-07 | Outpatient (CLI) | payer OTHER | END | disposition home or self-care (01) | LOC: WOUNDCARE 01:42 | PROVIDERS: ATTEND Nurse Practitioner Family | DX: S31.109A Unspecified open wound of abdominal wall, unspecified quadrant without penetration into peritoneal cavity, initial encounter (principal); L98.492 Non-pressure chronic ulcer of skin of other sites with fat layer exposed; J44.9 Chronic obstructive pulmonary disease, unspecified; M10.9 Gout, unspecified; F41.9 Anxiety disorder, unspecified; F32.A Depression, unspecified; Z87.891 Personal history of nicotine dependence; Z90.49 Acquired absence of other specified parts of digestive tract; Z98.84 Bariatric surgery status; Z98.51 Tubal ligation status; Z96.653 Presence of artificial knee joint, bilateral; Z79.899 Other long term (current) drug therapy; X58.XXXA Exposure to other specified factors, initial encounter; Y93.89 Activity, other specified; Y92.89 Other specified places as the place of occurrence of the external cause; Y99.8 Other external cause status ==

== ENCOUNTER → 2023-12-14 | Outpatient (CLI) | payer OTHER | END | disposition home or self-care (01) | LOC: WOUNDCARE 02:37 | PROVIDERS: ATTEND Nurse Practitioner Family | DX: S31.109D Unspecified open wound of abdominal wall, unspecified quadrant without penetration into peritoneal cavity, subsequent encounter (principal); L98.492 Non-pressure chronic ulcer of skin of other sites with fat layer exposed; J44.9 Chronic obstructive pulmonary disease, unspecified; M10.9 Gout, unspecified; F41.9 Anxiety disorder, unspecified; F32.A Depression, unspecified; Z87.891 Personal history of nicotine dependence; Z90.49 Acquired absence of other specified parts of digestive tract; Z98.84 Bariatric surgery status; Z98.51 Tubal ligation status; Z96.653 Presence of artificial knee joint, bilateral; Z79.899 Other long term (current) drug therapy; X58.XXXD Exposure to other specified factors, subsequent encounter ==

== ENCOUNTER → 2024-01-06 | Outpatient (CLI) | payer OTHER | END | disposition home or self-care (01) | LOC: WOUNDCARE 00:24 | PROVIDERS: ATTEND Nurse Practitioner Family | DX: S31.109D Unspecified open wound of abdominal wall, unspecified quadrant without penetration into peritoneal cavity, subsequent encounter (principal); L98.492 Non-pressure chronic ulcer of skin of other sites with fat layer exposed; M10.9 Gout, unspecified; J44.9 Chronic obstructive pulmonary disease, unspecified; F41.9 Anxiety disorder, unspecified; F32.A Depression, unspecified; Z87.891 Personal history of nicotine dependence; Z90.49 Acquired absence of other specified parts of digestive tract; Z96.653 Presence of artificial knee joint, bilateral; X58.XXXD Exposure to other specified factors, subsequent encounter ==

== ENCOUNTER 2024-03-03 18:36 | Emergency (ER) | payer OTHER ==
[~2024-03-03] VITALS: Ht 165.1 cm; Wt 111.1 kg
[2024-03-03] MEDS ORDERED: WELLBUTRIN XL300 MG PO (19:17)
[2024-03-03] MEDS ORDERED: BIOTIN2500 MC1 PO (19:17)
[2024-03-03] MEDS ORDERED: NYSTATIN15 GM T (19:50)
[2024-03-03] MEDS ORDERED: NYSTATIN 15 GM BOT T ONE (19:50)
== END 2024-03-03 20:06 | disposition home or self-care (01) ==
LOC: ED 18:36
DX: B37.89 Other sites of candidiasis (principal); K21.9 Gastro-esophageal reflux disease without esophagitis; F32.A Depression, unspecified; F41.9 Anxiety disorder, unspecified; J44.9 Chronic obstructive pulmonary disease, unspecified; I50.9 Heart failure, unspecified; I13.0 Hypertensive heart and chronic kidney disease with heart failure and stage 1 through stage 4 chronic kidney disease, or unspecified chronic kidney disease; N18.9 Chronic kidney disease, unspecified; I48.91 Unspecified atrial fibrillation; Z88.0 Allergy status to penicillin; Z88.2 Allergy status to sulfonamides; Z91.040 Latex allergy status; Z88.5 Allergy status to narcotic agent; Z91.041 Radiographic dye allergy status; Z88.8 Allergy status to other drugs, medicaments and biological substances; Z90.49 Acquired absence of other specified parts of digestive tract; Z98.890 Other specified postprocedural states; Z87.891 Personal history of nicotine dependence; Z96.653 Presence of artificial knee joint, bilateral

== ENCOUNTER → 2024-03-08 | Outpatient (CLI) | payer OTHER ==
[~2024-03-08] MED LIST changes: +BIOTIN2500 MC1 PO; +NYSTATIN15 GM T; +WELLBUTRIN XL300 MG PO
== END | disposition home or self-care (01) ==
LOC: WOUNDCARE 05:12
PROVIDERS: ATTEND Nurse Practitioner Family
DX: R21 Rash and other nonspecific skin eruption (principal); L53.9 Erythematous condition, unspecified; B37.9 Candidiasis, unspecified; B37.31 Acute candidiasis of vulva and vagina; N94.818 Other vulvodynia; F41.9 Anxiety disorder, unspecified; F32.A Depression, unspecified; M10.9 Gout, unspecified; J44.9 Chronic obstructive pulmonary disease, unspecified; Z87.891 Personal history of nicotine dependence; Z90.49 Acquired absence of other specified parts of digestive tract; Z96.653 Presence of artificial knee joint, bilateral

== ENCOUNTER → 2024-03-15 | Outpatient (CLI) | payer OTHER | END | disposition home or self-care (01) | LOC: WOUNDCARE 00:51 | PROVIDERS: ATTEND Nurse Practitioner Family | DX: R21 Rash and other nonspecific skin eruption (principal); L53.9 Erythematous condition, unspecified; B37.31 Acute candidiasis of vulva and vagina; N94.818 Other vulvodynia; J44.9 Chronic obstructive pulmonary disease, unspecified; M10.9 Gout, unspecified; F41.9 Anxiety disorder, unspecified; F32.A Depression, unspecified; Z87.891 Personal history of nicotine dependence; Z90.49 Acquired absence of other specified parts of digestive tract; Z96.653 Presence of artificial knee joint, bilateral; Z98.51 Tubal ligation status; Z98.84 Bariatric surgery status; Z79.899 Other long term (current) drug therapy ==

== ENCOUNTER → 2024-03-24 | Outpatient (CLI) | payer OTHER | END | disposition home or self-care (01) | LOC: WOUNDCARE 01:46 | PROVIDERS: ATTEND Nurse Practitioner Family | DX: R21 Rash and other nonspecific skin eruption (principal); B37.9 Candidiasis, unspecified; B37.31 Acute candidiasis of vulva and vagina; L53.9 Erythematous condition, unspecified; J44.9 Chronic obstructive pulmonary disease, unspecified; N94.818 Other vulvodynia; M10.9 Gout, unspecified; F41.9 Anxiety disorder, unspecified; F32.A Depression, unspecified; Z90.49 Acquired absence of other specified parts of digestive tract; Z98.51 Tubal ligation status; Z87.891 Personal history of nicotine dependence; Z96.653 Presence of artificial knee joint, bilateral ==

== ENCOUNTER 2024-06-23 18:44 | Inpatient (IN) | payer OTHER ==
[~2024-06-23] VITALS: Ht 165.1 cm; Wt 127.6 kg
[2024-06-23 18:56] VITALS: BP 136/64
[2024-06-23 19:08] LABS: HEMATOCRIT 43.1 % (37.0-47.0); MEAN CORPUSCULAR HGB 31.1 pg (27.0-31.0); MEAN CORPUSCULAR HGB CONC 31.1 g/dl (33.0-37.0); MEAN PLATELET VOLUME 10.9 fl (9.6-12.3); PLATELET COUNT AUTOMATED 422 10*3/uL (130-400); RED BLOOD COUNT 4.31 10*6/uL (4.10-5.10); RED CELL DISTRI WIDTH 14.5 % (0-14.5); WHITE BLOOD COUNT 25.6 10*3/uL (4.8-10.8)
[2024-06-23 19:10] LABS: MANUAL DIFF REFLEX YES
[2024-06-23 19:36] LABS: PLATELET SUFFICIENCY HIGH (NORMAL); TOTAL CELLS COUNTED 100 #CELLS
[2024-06-23 19:37] LABS: OVALOCYTES FEW; SPHEROCYTES FEW
[2024-06-23 19:41] LABS: ALKALINE PHOSPHATASE 218 U/L (46-116); BUN 14 mg/dl (9-23); CHLORIDE 103 mmol/L (98-107); POTASSIUM 4.8 mmol/L (3.4-5.1); SGPT/ALT 30 U/L (5-49); TOTAL PROTEIN 6.7 gm/dL (6.0-8.0)
[2024-06-23 20:56] VITALS: BP 123/56
[2024-06-23 21:49] LABS: BILIRUBIN Negative (Negative); BLOOD Negative (Negative); CLARITY Cloudy (Clear); COLOR Yellow (Yellow); GLUCOSE Negative (Negative); KETONE Negative (Negative); LEUKO ESTERASE 2+ (Negative); NITRITE Negative (Negative); SPECIFIC GRAVITY 1.015 (1.001-1.030); UROBILINOGEN 0.2 E.U./dl (0.0-1.0)
[2024-06-23 21:55] LABS: BACTERIA 2+; RBC 0-2 rbc/hpf (0-2); WBC 16-20 wbc/hpf (0-5)
[2024-06-23] MEDS ORDERED: Acetaminophen/Hydrocodone 5 MG/325 MG TABLET PO ONE (22:40)
[2024-06-24] VITALS: BP 114/54
[2024-06-24] MEDS ORDERED: cefTRIAXone Sodium 1 GM/10 ML SYR IV ONE (00:25)
[2024-06-24] MEDS ORDERED: SODIUM CHLORIDE 0.9% 1,000 ML IV SCH (00:25)
[2024-06-24] MEDS ORDERED: AZITHROMYCIN 250 ML IV ONE (00:50)
[2024-06-24] MEDS ORDERED: TEMAZEPAM 15 MG CAP PO PRN (01:20)
[2024-06-24] MEDS ORDERED: ACETAMINOPHEN 325 MG TAB PO PRN (01:20)
[2024-06-24] MEDS ORDERED: Magnesium Hydroxide 30 ML UDC PO PRN (01:20)
[2024-06-24] MEDS ORDERED: Ondansetron Hydrochloride 4 MG/2 ML VIAL IV PRN (01:20)
[2024-06-24] MEDS ORDERED: BISACODYL 10 MG SUPP R PRN (01:20)
[2024-06-24] MEDS ORDERED: ACETAMINOPHEN 650 MG SUPP R PRN (01:20)
[2024-06-24] MEDS ORDERED: BISACODYL 5 MG TAB PO PRN (01:20)
[2024-06-24] MEDS ORDERED: Acetaminophen/Hydrocodone 5 MG/325 MG TABLET PO PRN (01:20)
[2024-06-24] MEDS ORDERED: Albuterol Sulf/Ipratropium 3 ML VIAL NEB PRN (01:25)
[2024-06-24 02:32] VITALS: BP 133/54
[2024-06-24] MEDS ORDERED: Pantoprazole Sodium 40 MG TAB PO SCH (06:00)
[2024-06-24] MEDS ORDERED: HYDROCODONE-AC1 EAC2 PO (06:15)
[2024-06-24] MEDS ORDERED: VITAMIN D350 MC3 PO (06:17)
[2024-06-24] MEDS ORDERED: SERTRALINE HYDR50 MG PO (06:18)
[2024-06-24] MEDS ORDERED: B-121000 MCG PO (06:19)
[2024-06-24] MEDS ORDERED: VITAMIN C250 M2 PO (06:20)
[2024-06-24] MEDS ORDERED: POTASSIUM99 M7 PO (06:21)
[2024-06-24] MEDS ORDERED: MELATONIN10 M4 PO (06:21)
[2024-06-24] MEDS ORDERED: MAGNESIUM250 M1 PO ×2 (06:22→17:11)
[2024-06-24 06:26] VITALS: BP 120/60
[2024-06-24 07:57] VITALS: BP 118/62
[2024-06-24] MEDS ORDERED: AZITHROMYCIN 250 MG TAB PO SCH (10:00)
[2024-06-24] MEDS ORDERED: cefTRIAXone Sodium 1 GM in SYRINGE INFUSION 10 ML IV SCH (10:00)
[2024-06-24] MEDS ORDERED: Enoxaparin Sodium 40 MG/0.4 ML SYR SC SCH (10:00)
[2024-06-24] MEDS ORDERED: cefTRIAXone Sodium 1 GM VIAL ONE (11:47)
[2024-06-24] MEDS ORDERED: IOHEXOL 350 MG/ML 100 ML VIAL IV ONE (14:15)
[2024-06-24] MEDS ORDERED: SODIUM CHLORIDE 0.9% 100 ML BAG IV ONE (14:15)
[2024-06-24] MEDS ORDERED: diphenhydrAMINE hydrochloride 50 MG/ML VIAL IV ONE (15:00)
[2024-06-24] MEDS ORDERED: Ondansetron Hydrochloride 4 MG/2 ML VIAL IV ONE (15:00)
[2024-06-24] MEDS ORDERED: LOMOTIL 2.5-0.1 EACH PO (16:33)
[2024-06-24] MEDS ORDERED: BREYNA 160-4.10.3 GM INH (16:34)
[2024-06-24] MEDS ORDERED: CLOBETASOL PROP15 G3 T (16:35)
[2024-06-24] MEDS ORDERED: LIDOCAINE15 G1 T (16:40)
[2024-06-24] MEDS ORDERED: NYSTATIN CREAM15 GM T (16:41)
[2024-06-24] MEDS ORDERED: ZOLOFT50 MG PO (17:07)
[2024-06-24] MEDS ORDERED: VITAMIN D350 MCG PO (17:07)
[2024-06-24] MEDS ORDERED: BIOTIN PLUS KE1 EACH PO (17:08)
[2024-06-24] MEDS ORDERED: MELATONIN 10 M1 EACH PO (17:09)
[2024-06-24] MEDS ORDERED: IRON18 M1 PO (17:09)
[2024-06-24] MEDS ORDERED: VITAMIN B121000 MC3 PO (17:10)
[2024-06-24] MEDS ORDERED: VITAMIN C WITH500 M1 PO (17:11)
[2024-06-24] MEDS ORDERED: Ondansetron4 MG PO (17:12)
[2024-06-24] MEDS ORDERED: [UNRECOGNIZED DRUG - OTHER] (17:17)
[2024-06-24 17:20] VITALS: BP 107/49
[2024-06-24 20:00] VITALS: BP 154/49
[2024-06-24] MEDS ORDERED: Melatonin 5 MG TABLET PO PRN (21:20)
[2024-06-24] MEDS ORDERED: Atropine Sulfate/Diphenoxyla 1 TAB TAB PO PRN (21:20)
[2024-06-25] VITALS: BP 114/54
[2024-06-25] MEDS ORDERED: Pantoprazole Sodium 40 MG TAB PO SCH (06:00)
[2024-06-25 06:01] LABS: ALKALINE PHOSPHATASE 213 U/L (46-116); BUN 13 mg/dl (9-23); CHLORIDE 103 mmol/L (98-107); POTASSIUM 4.6 mmol/L (3.4-5.1); SGPT/ALT 19 U/L (5-49); TOTAL PROTEIN 6.2 gm/dL (6.0-8.0)
[2024-06-25 06:21] LABS: HEMATOCRIT 41.5 % (37.0-47.0); MEAN CELL VOLUME 101.2 fl (81.0-99.0); MEAN CORPUSCULAR HGB 30.5 pg (27.0-31.0); MEAN CORPUSCULAR HGB CONC 30.1 g/dl (33.0-37.0); MEAN PLATELET VOLUME 11.4 fl (9.6-12.3); PLATELET COUNT AUTOMATED 394 10*3/uL (130-400); RED CELL DISTRI WIDTH 14.6 % (0-14.5); WHITE BLOOD COUNT 19.5 10*3/uL (4.8-10.8)
[2024-06-25 06:24] LABS: MANUAL DIFF REFLEX YES
[2024-06-25 06:56] LABS: BURR CELLS FEW; OVALOCYTES FEW; PLATELET SUFFICIENCY NORMAL (NORMAL); POLYCHROMASIA SLIGHT; TOTAL CELLS COUNTED 100 #CELLS
[2024-06-25 06:57] LABS: HOWELL-JOLLY BODIES FEW
[2024-06-25 08:00] VITALS: BP 132/64
[2024-06-25] MEDS ORDERED: ATENOLOL 25 MG TAB PO SCH (10:00)
[2024-06-25] MEDS ORDERED: Sertraline Hydrochloride 50 MG TAB PO SCH (10:00)
[2024-06-25] MEDS ORDERED: Memantine Hydrochloride 5 MG TAB PO SCH (10:00)
[2024-06-25 12:00] VITALS: BP 115/61
[2024-06-25 16:00] VITALS: BP 135/60
[2024-06-25 20:00] VITALS: BP 148/60
[2024-06-26] VITALS: BP 105/46
[2024-06-26 06:08] LABS: BUN 14 mg/dl (9-23); CHLORIDE 103 mmol/L (98-107); POTASSIUM 4.4 mmol/L (3.4-5.1)
[2024-06-26 08:00] VITALS: BP 113/62
[2024-06-26 12:00] VITALS: BP 114/51
[2024-06-26 16:00] VITALS: BP 116/54
[2024-06-26 20:00] VITALS: BP 154/73
[2024-06-26] MEDS ORDERED: NYSTATIN 15 GM BOT T SCH (22:00)
[2024-06-26] MEDS ORDERED: NYSTATIN OINTMENT 15 GM TUBE T SCH (22:00)
[2024-06-27] VITALS: BP 126/57
[2024-06-27 07:49] LABS: BUN 17 mg/dl (9-23); CHLORIDE 104 mmol/L (98-107); POTASSIUM 4.8 mmol/L (3.4-5.1)
[2024-06-27 08:00] VITALS: BP 130/70
[2024-06-27] MEDS ORDERED: CIPRO500 MG/5 M PO (10:19)
[2024-06-27 12:00] VITALS: BP 134/66
== END 2024-06-27 13:00 | disposition home or self-care (01) | DRG 872 ==
LOC: ED 18:44 → EDHOLD 06-24 00:51 → 4E 06-24 00:51
PROVIDERS: Emergency Medicine; Internal Medicine; ADMIT Internal Medicine; ATTEND Internal Medicine
DX: A41.9 Sepsis, unspecified organism (principal); N39.0 Urinary tract infection, site not specified; E44.0 Moderate protein-calorie malnutrition; J98.4 Other disorders of lung; N18.30 Chronic kidney disease, stage 3 unspecified; F32.9 Major depressive disorder, single episode, unspecified; R73.9 Hyperglycemia, unspecified; K21.9 Gastro-esophageal reflux disease without esophagitis; M54.9 Dorsalgia, unspecified; G89.29 Other chronic pain; I12.9 Hypertensive chronic kidney disease with stage 1 through stage 4 chronic kidney disease, or unspecified chronic kidney disease; J44.89 Other specified chronic obstructive pulmonary disease; K43.9 Ventral hernia without obstruction or gangrene; N20.0 Calculus of kidney; E66.01 Morbid (severe) obesity due to excess calories; F41.9 Anxiety disorder, unspecified; G30.1 Alzheimer's disease with late onset; Z20.822 Contact with and (suspected) exposure to COVID-19; F02.80 Dementia in other diseases classified elsewhere, unspecified severity, without behavioral disturbance, psychotic disturbance, mood disturbance, and anxiety; Z86.73 Personal history of transient ischemic attack (TIA), and cerebral infarction without residual deficits; Z90.49 Acquired absence of other specified parts of digestive tract; Z90.81 Acquired absence of spleen; Z98.51 Tubal ligation status; Z87.891 Personal history of nicotine dependence; Z83.3 Family history of diabetes mellitus; Z82.49 Family history of ischemic heart disease and other diseases of the circulatory system; Z81.8 Family history of other mental and behavioral disorders; Z81.1 Family history of alcohol abuse and dependence; Z83.6 Family history of other diseases of the respiratory system; Z88.0 Allergy status to penicillin; Z88.2 Allergy status to sulfonamides; Z88.8 Allergy status to other drugs, medicaments and biological substances; Z91.041 Radiographic dye allergy status; Z91.040 Latex allergy status

== ENCOUNTER → 2024-10-07 | Outpatient (CLI) | payer OTHER ==
[~2024-10-07] MED LIST changes: +B-121000 MCG PO; +BIOTIN PLUS KE1 EACH PO; +BREYNA 160-4.10.3 GM INH; +CIPRO500 MG/5 M PO; +CLOBETASOL PROP15 G3 T; +HYDROCODONE-AC1 EAC2 PO; +IRON18 M1 PO; +LIDOCAINE15 G1 T; +LOMOTIL 2.5-0.1 EACH PO; +MAGNESIUM250 M1 PO; +MELATONIN 10 M1 EACH PO; +MELATONIN10 M4 PO; +NYSTATIN CREAM15 GM T; +Ondansetron4 MG PO; +POTASSIUM99 M7 PO; +SERTRALINE HYDR50 MG PO; +VITAMIN B121000 MC3 PO; +VITAMIN C WITH500 M1 PO; +VITAMIN C250 M2 PO; +VITAMIN D350 MC3 PO; +VITAMIN D350 MCG PO; +ZOLOFT50 MG PO; +[UNRECOGNIZED DRUG - OTHER]
== END | disposition home or self-care (01) ==
LOC: LAB 12:41
PROVIDERS: ATTEND Urology
DX: N20.0 Calculus of kidney (principal)

== ENCOUNTER → 2024-10-28 | Outpatient (CLI) | payer OTHER | END | disposition home or self-care (01) | LOC: LAB 01:31 → RAD 01:31 | PROVIDERS: ATTEND Internal Medicine | DX: Z13.820 Encounter for screening for osteoporosis (principal); M85.89 Other specified disorders of bone density and structure, multiple sites; R29.890 Loss of height; E21.3 Hyperparathyroidism, unspecified ==

== ENCOUNTER → 2025-04-24 | Outpatient (CLI) | payer OTHER | END | disposition home or self-care (01) | LOC: NM 05:41 | PROVIDERS: ATTEND Internal Medicine Endocrinology, Diabetes & Metabolism | DX: E21.3 Hyperparathyroidism, unspecified (principal) ==